=== PATIENT | male | born 1970 | race Caucasian/White ===

== ENCOUNTER 2020-07-17 07:32 | Outpatient (REF) | payer OTHER, SELFPAY ==
[2020-07-17 08:35] LABS: Alanine Aminotransferase 37 U/L (0-40); Albumin Level 4.1 g/dL (3.5-5.0); Alkaline Phosphatase 73 U/L (39-117); Anion Gap 10 (12-20); Aspartate Amino Transferase 19 U/L (5-37); Bilirubin Total 0.5 mg/dL (0.0-1.0); Blood Urea Nitrogen 13 mg/dL (9-16); Calcium 8.7 mg/dL (8.4-10.2); Carbon Dioxide 23 mmol/L (22-29); Chloride 106 mmol/L (96-108); Cholesterol 116 mg/dL; Estimated Glomerular Filt Rate > 60; Glucose Fasting 114 mg/dL (60-99); HDL Cholesterol 33 mg/dL; LDL Cholesterol Calculated 60 mg/dl; Potassium 4.1 mmol/l (3.3-5.1); Sodium 135 mmol/L (135-145); Total Protein 6.6 g/dL (6.5-8.0); Triglycerides 117 mg/dL
== END 2020-07-17 07:33 | disposition home or self-care (01) ==
LOC: HO.LAB 07:32
PROVIDERS: Visit Provider Internal Medicine
DX: E78.00 Pure hypercholesterolemia, unspecified (principal); R73.02 Impaired glucose tolerance (oral)
CPT/HCPCS: 80053; 80061

== ENCOUNTER 2022-03-27 06:08 | Outpatient (REF) | payer OTHER, SELFPAY ==
[2022-03-27 07:54] LABS: Anion Gap 15 (12-20); Blood Urea Nitrogen 11 mg/dL (9-16); Carbon Dioxide 20 mmol/L (22-29); Chloride 108 mmol/L (96-108); Estimated Glomerular Filt Rate > 60; Potassium 3.9 mmol/L (3.3-5.1); Sodium 139 mmol/L (135-145)
[2022-03-27 07:55] LABS: Alanine Aminotransferase 37 U/L (0-40); Albumin Level 4.2 g/dL (3.5-5.0); Alkaline Phosphatase 69 U/L (39-117); Aspartate Amino Transferase 19 U/L (5-37); Bilirubin Total 0.7 mg/dL (0.0-1.0); Calcium 8.8 mg/dL (8.4-10.2); Cholesterol 185 mg/dL; Glucose Fasting 116 mg/dL (60-99); HDL Cholesterol 34 mg/dL; LDL Cholesterol Calculated 118 mg/dl; Total Protein 6.8 g/dL (6.5-8.0); Triglycerides 168 mg/dL
[2022-04-01 13:22] LABS: Vitamin D 25-OH, D2 <4 ng/mL; Vitamin D 25-OH, D3 26 ng/mL; Vitamin D 25-OH, Total 26 ng/mL (30-100)
== END 2022-03-27 06:09 | disposition home or self-care (01) ==
LOC: HO.LAB 06:08
PROVIDERS: PCP Internal Medicine; Visit Provider Internal Medicine
DX: E78.00 Pure hypercholesterolemia, unspecified (principal); E78.5 Hyperlipidemia, unspecified; E55.9 Vitamin D deficiency, unspecified; I10 Essential (primary) hypertension
CPT/HCPCS: 36415; 80053; 80061; 82306

== ENCOUNTER 2022-08-15 06:09 | Outpatient (REF) | payer OTHER, SELFPAY ==
[2022-08-15 07:57] LABS: Alanine Aminotransferase 40 U/L (0-40); Albumin Level 4.2 g/dL (3.5-5.0); Alkaline Phosphatase 66 U/L (39-117); Anion Gap 11 (12-20); Aspartate Amino Transferase 22 U/L (5-37); Blood Urea Nitrogen 13 mg/dL (9-16); Calcium 9.3 mg/dL (8.4-10.2); Carbon Dioxide 25 mmol/L (22-29); Chloride 108 mmol/L (96-108); Cholesterol 222 mg/dL; Estimated Glomerular Filt Rate > 60; Glucose Fasting 129 mg/dL (60-99); HDL Cholesterol 40 mg/dL; LDL Cholesterol Calculated 146 mg/dl; Potassium 4.3 mmol/L (3.3-5.1); Sodium 140 mmol/L (135-145); Total Protein 7.1 g/dL (6.5-8.0); Triglycerides 182 mg/dL
[2022-08-15 08:14] LABS: Vitamin D 25-OH Total 20.3 ng/mL (>30)
[2022-08-15 11:21] LABS: Bilirubin Total 0.4 mg/dL (0.0-1.0)
== END 2022-08-15 06:10 | disposition home or self-care (01) ==
LOC: HO.LAB 06:09
PROVIDERS: PCP Internal Medicine; Visit Provider Internal Medicine
DX: I10 Essential (primary) hypertension (principal); E78.5 Hyperlipidemia, unspecified; E55.9 Vitamin D deficiency, unspecified
CPT/HCPCS: 36415; 80053; 80061; 82306

== ENCOUNTER 2022-12-11 08:32 | Outpatient (REF) | payer OTHER, SELFPAY ==
[2022-12-11 09:25] LABS: Alanine Aminotransferase 38 U/L (0-40); Albumin Level 4.4 g/dL (3.5-5.0); Alkaline Phosphatase 72 U/L (39-117); Anion Gap 11 (12-20); Aspartate Amino Transferase 23 U/L (5-37); Bilirubin Total 0.9 mg/dL (0.0-1.0); Blood Urea Nitrogen 14 mg/dL (9-16); Calcium 9.1 mg/dL (8.4-10.2); Carbon Dioxide 25 mmol/L (22-29); Chloride 107 mmol/L (96-108); Cholesterol 124 mg/dL; Estimated Glomerular Filt Rate > 60; Glucose Fasting 112 mg/dL (60-99); HDL Cholesterol 35 mg/dL; LDL Cholesterol Calculated 67 mg/dl; Potassium 4.2 mmol/L (3.3-5.1); Sodium 139 mmol/L (135-145); Total Protein 6.7 g/dL (6.5-8.0); Triglycerides 111 mg/dL
== END 2022-12-11 08:33 | disposition home or self-care (01) ==
LOC: HO.LAB 08:32
PROVIDERS: PCP Internal Medicine; Visit Provider Internal Medicine
DX: E78.5 Hyperlipidemia, unspecified (principal); E78.00 Pure hypercholesterolemia, unspecified
CPT/HCPCS: 36415; 80053; 80061

== ENCOUNTER 2022-12-18 15:19 | Outpatient (REF) | payer OTHER, SELFPAY ==
--- NOTE | ~2022-12-18 | XR_ITS ---
EXAMINATION: XR CERVICAL SPINE CLINICAL INFORMATION: Neck pain COMPARISON: None available. TECHNIQUE: 4 views of the cervical spine were obtained. FINDINGS: Bone alignment is normal. No fracture or dislocation. There is degenerative spondylosis and disc space narrowing at C4-C5 and C5-C6. Prevertebral soft tissues are normal. XR/XR cervical spine 2V IMPRESSION: Degenerative changes at C4-C5 and C5-C6.
== END 2022-12-18 15:20 | disposition home or self-care (01) ==
LOC: HO.XRAY 15:19
PROVIDERS: PCP Internal Medicine; Visit Provider Internal Medicine
DX: M54.2 Cervicalgia (principal)
CPT/HCPCS: 72040

== ENCOUNTER 2023-02-02 14:25 | Outpatient (REF) | payer OTHER, SELFPAY ==
--- NOTE | ~2023-02-02 | CT_ITS ---
EXAMINATION: CT CHEST SCREENING CLINICAL INFORMATION: Current smoker. 40 pack year history. COMPARISON: Previous chest x-ray most recent August 2015 TECHNIQUE: Multidetector volumetric CT imaging of the chest is performed without contrast using low dose technique. Additional 2D coronal and sagittal reformatted images and axial 3D maximum intensity projection (MIP) images are generated on the CT workstation. This CT examination was performed using dose optimization techniques as appropriate, variously including the following: *Automated exposure control *Adjustment of mA and/or kV according to patient size (this includes techniques or standardized protocols for targeted exams where dose is matched to indication/reason for exam; i.e. extremities or head) *Use of iterative reconstruction technique DLP: 77 mGy-cm FINDINGS: LUNGS: The lungs are clear with no evidence of inflammation or nodules. Minimal subsegmental atelectasis at the lung bases. MEDIASTINUM: The mediastinum is normal. CORONARY ARTERY CALCIFICATION: Mild PLEURA: There is no pleural effusion. No pleural mass or thickening. AXILLA: No lymphadenopathy. UPPER ABDOMEN: Unremarkable OSSEOUS STRUCTURES: Mild scoliosis and degenerative changes of the spine. CT/CT lung screening IMPRESSION: Mild subsegmental atelectasis at the lung bases. ASSESSMENT: Lung-RADS category 1: Negative RECOMMENDATION: Annual low-dose chest CT follow-up recommended
== END 2023-02-02 14:26 | disposition home or self-care (01) ==
LOC: HO.CT 14:25
PROVIDERS: PCP Internal Medicine; Visit Provider Physician Assistant Medical
DX: Z12.2 Encounter for screening for malignant neoplasm of respiratory organs (principal); F17.210 Nicotine dependence, cigarettes, uncomplicated
CPT/HCPCS: 71271; G0296

== ENCOUNTER 2023-02-20 16:00 | Outpatient (RCR) | payer OTHER, SELFPAY ==
--- NOTE | 2023-01-10 13:02 | MHC.PT.EP ---
[facility] [place] Office [place] Office [place] Office [address] [phone] F: [phone] F: [phone] F: [phone] F: [phone] Physical Therapy Plan of Care Date of Evaluation: Date of Surgery: N/A Diagnosis: Cervicalgia Assessment: Pt is a pleasant 52yo M who presents to PT with L sided neck pain that occasionally radiates into L upper arm. He presents to PT with current impairments in pain, decreased cervical ROM, soft tissue restrictions and impaired posture. He is limited functionally by head rotation, looking up and down, overhead ADLs, and sleeping. He is a good candidate for skilled PT in order to address current impairments to facilitate return to PLOF. He is recommended to be seen 2x/week for 4 weeks and will be reassessed at that time. Frequency and Duration: The patient will be seen 2x/week for 4 weeks Short Term Goals: Pt will be I with HEP to promote self management of symptoms Pt will improve L cervical rotation by at least 10 degrees Jail Goals: Pt will demonstrate full ROM all planes of cervical spine to assist with driving Pt will perform overhead ADLs with minimal to no pain or compensation Treatment Plan: Modalities to reduce pain, spasms and effusion. Manual therapy to restore motion and function. Therapeutic exercise to improve strength and flexibility. Neuromuscular re-education for posture and balance. Therapeutic activities to return to functional activities of daily living. Electronically signed by: Steffi Andrade, PT, DPT Please sign and return to therapist. Thank you for your referral.
--- NOTE | 2023-04-13 11:05 | MHC.PT.DC ---
[facility] [place] Office [place] Office [place] Office [address] R[address] [phone] F: [phone] F: [phone] F: [phone] F: [phone] Physical Therapy Discharge Report Diagnosis: Cervicalgia Date of Surgery: N/A Date of Evaluation: 01/09/23 Date of Discharge: 04/13/23 Treatments to Date: 5 Cancellations to Date: 3 No Shows to Date: Discharge Status: Visit Non-compliance Discharge Summary: Pt was seen for skilled PT from 01/09/23-02/20/23. His last attended appointment was 02/20/23 and he cancelled his last scheduled appointment. He is being D/C from skilled PT as he has not attended or called to reschedule in > 30 days. Pt current level of function unknown at this time. Electronically signed by: Steffi Andrade, PT, DPT Please sign and return to therapist. Thank you for your referral.
== END 2023-04-13 11:05 | disposition home or self-care (01) ==
LOC: HO.PT 16:00
PROVIDERS: PCP Internal Medicine; Visit Provider Internal Medicine
DX: M54.2 Cervicalgia (principal)
CPT/HCPCS: 97012; 97110; 97140; 97162

== ENCOUNTER → 2023-05-18 10:40 | Outpatient (BNVA) | payer OTHER, SELFPAY | PROVIDERS: PCP Internal Medicine; Visit Provider Internal Medicine | DX: S16.1XXA Strain of muscle, fascia and tendon at neck level, initial encounter (principal); S39.012A Strain of muscle, fascia and tendon of lower back, initial encounter; V89.0XXA Person injured in unspecified motor-vehicle accident, nontraffic, initial encounter | CPT/HCPCS: 99203 ==

== ENCOUNTER → 2023-05-21 10:45 | Outpatient (BNVA) | payer OTHER, SELFPAY | PROVIDERS: PCP Internal Medicine; Visit Provider Internal Medicine | DX: S39.012A Strain of muscle, fascia and tendon of lower back, initial encounter (principal); S16.1XXA Strain of muscle, fascia and tendon at neck level, initial encounter; V89.0XXA Person injured in unspecified motor-vehicle accident, nontraffic, initial encounter | CPT/HCPCS: 99213 ==

== ENCOUNTER 2023-07-03 16:59 | Emergency (ER) | payer OTHER, SELFPAY ==
[2023-07-03 17:23] VITALS: BP 199/95; PULSE 66; RESP 18; TEMP 36.6; O2SAT 99; BMI 38.0
--- NOTE | 2023-07-03 17:25 | ED_ITS ---
HPI - General Adult General Chief complaint: General Medical Stated complaint: High blood pressure Time Seen by Provider: 07/03/23 21:31 Source: patient Mode of arrival: ambulatory Limitations: no limitations History of Present Illness HPI narrative: 53 yo male with HTN, HLD, arthritis, NSTEMI here with c/o elevated HTN around 3pm today he felt off - no real chest pain, headaches, numbness, weakness, shortness of breath. He checked his BP at [employer] and it was 221/115. He then took his lisinopril and metoprolol which he almost never takes. Has not filled it since November. He has no symptoms now and is eager to go home. He did refill all his medications while waiting in our waiting room and will call his PCP before his 08/29/23 appointment. MD complaint: HTN Onset (ago): day(s) (1) Radiation: non-radiation Severity: mild Relieving factors: none Exacerbating factors: none Associated symptoms: denies other symptoms Treatments prior to arrival: other (took his BP medications) Related Data Previous Rx's Medication Instructions Recorded nicotine (polacrilex) 2 mg buccal 2 mg buccal Q8H PRN nicotine 04/22/22 lozenge (Nicorette) cravings 30 days #72 ea meloxicam 15 mg tablet 15 mg PO DAILY 90 days #90 tabs 06/28/22 metoprolol succinate 25 mg 25 mg PO DAILY 90 days #90 tabs 09/29/22 tablet,extended release 24 hr atorvastatin 80 mg tablet 80 mg PO DAILY 90 days #90 tabs 03/23/23 lisinopril 30 mg tablet 30 mg PO DAILY 90 days #90 tabs 03/23/23 Allergies Allergy/AdvReac Type Severity Reaction Status Date / Time No Known Allergies Allergy Verified 12/14/22 16:01 [No Known Allergies*] Review of Systems 2 Review of Systems: Constitutional : No Fever, No Chills, No Fatigue ENT/Mouth : No sore throat, No Rhinorrhea Eyes: No Eye Pain, No Swelling, No Redness Cardiovascular : No Chest Pain, No SOB, No Dyspnea on Exertion Respiratory : No Cough, No Sputum Gastrointestinal : No Nausea, No Vomiting, No Diarrhea, No abdominal Pain Genitourinary : No Dysuria, No Urinary Frequency, No Hematuria, Musculoskeletal : No joint pain, No Myalgias, No Joint Swelling Skin : No Skin Lesions, No rash Neuro : No Weakness, No Numbness, No Dizziness, no Headache Psych : No Anxiety/Panic, No Depression Heme/Lymph: No Bruising, No Bleeding,No Lymphadenopathy Endocrine : No Polyuria, No Polydipsia All other systems reviewed and are negative [facility] Past Medical History Attestation statement: The following information was validated with the patient. Source: old records reviewed Medical History Nicotine dependence, cigarettes, uncomplicated History of non-ST elevation myocardial infarction (NSTEMI) Tubular adenoma of colon (~2019) Obese Left hip pain Pure hypercholesterolemia Essential hypertension Knee osteoarthritis Surgical History History of colonoscopy History of cardiac catheterization Family History Family History Father Skin cancer Lung cancer Mother Chronic mental illness Lung cancer Brother Cerebral palsy Maternal Aunt Lung cancer Maternal Grandfather Lung cancer Family/Other Chronic mental illness Other Substance use disorder Social History Social History Housing: Apartment Alcohol intake: never Patient Tobacco Use Status: Current everyday Tobacco user Tobacco use type: Cigarette Cigarettes Per Day: 15 Years Smoked: (onset 14yo, 1/2-3/4ppd x 40years - 25pyh) e-Cigarette/Vaping Use: Never Used Second Hand Smoke Exposure: No Use of substances other than those prescribed or required for medical reasons: No Advance Directives: No Advance Directives Information Provided: No service: No Current occupational status: employed Current occupational exposures/hazards: No Cognitive needs: No Hearing needs: No Vision needs: No Physical Exam ED Vital Signs: Vital Signs - 24 hr 07/03/23 17:23 07/03/23 21:45 Temperature 97.9 F Pulse Rate 66 66 Respiratory Rate 18 20 Blood Pressure 199/95 H 180/101 H Pulse Oximetry 99 97 Oxygen Delivery Method Room Air Room Air BMI result Body Mass Index 38.0 Appearance: Alert. Oriented X3. No acute distress. Eyes: Pupils equal, round and reactive to light. ENT: Pharynx normal. Neck: Normal inspection. Neck supple. CVS: Normal heart rate and rhythm. Pulses normal. Respiratory: No respiratory distress. Breath sounds normal. Abdomen: Soft and nontender. Skin: Skin warm and dry. Normal skin color. Normal skin turgor. Extremities: No lower extremity edema. No calf ttp Neuro: Oriented X 3. No motor deficit. No sensory deficit. Course Course Course Narrative: This is an RME: Additional HPI, ROS, PE not included below will be deferred to primary provider. Patient is a 53-year-old male who presents emergency department for evaluation of feeling funny while at the grocery store today , [place] something in my chest , checked BP at the automated machine; 221/113 which prompted him to come in. Took his BP meds 1600 : Lisinopril 40mg and Metoprolol. Reports for the past month he has not been compliant with his antihypertensives reporting that he has ?forgot?. Currently he reports feeling tired, denies any additional symptoms. 199/95 Plan: Labs, EKG Medical Decision Making Medical Decision Making MDM Narrative: 53 yo male with HTN, HLD, arthritis, NSTEMI here with asymptomatic HTN in setting of non compliance no signs of end organ damage on labs or clinically - he took his BP medication prior to arrival and has follow up and refills. we discussed the need for him to take medications and reasons to return he is already down 40 points SBP which is good. Stable for DC Differential Diagnosis Differential Diagnoses: The differential diagnosis associated with the presentation includes non-compliance, uncontrolled HTN Admission/Observation Consideration of admission/observation: Escalation of care including admission/observation considered asymptomatic HTN can be managed as outpatient Lab Data [facility] Lab Attestation statement: I reviewed the patient's lab results. 07/03/23 17:59 07/03/23 17:59 Labs: Lab Results 07/03/23 07/03/23 Range/Units 17:59 18:19 WBC 9.3 (4.8-10.8) X10*3/uL RBC 4.62 (4.60-5.80) X10*6/uL Hgb 14.5 (14.0-18.0) g/dl Hct 40.7 L (42.0-52.0) % MCV 88.1 (80.0-98.0) fL MCH 31.4 (27.0-33.0) pg MCHC 35.6 (31.0-36.0) g/dl RDW 12.3 (11.0-16.0) % Plt Count 240 (160-400) X10*3/uL MPV 10.3 (9.4-12.4) fL Immature Gran % (Auto) 0.2 (0.0-0.4) % Neut % (Auto) 43.6 L (45-73) % Lymph % (Auto) 43.7 H (20-40) % [place] % (Auto) 7.8 (2-11) % Eos % (Auto) 3.8 (0-4) % Baso % (Auto) 0.9 (0-2) % Lymph # (Auto) 4.1 (1.2-4.9) X10*3/uL [place] # (Auto) 0.7 (0.1-1.2) X10*3/uL Eos # (Auto) 0.4 (0.0-0.4) X10*3/uL Baso # (Auto) 0.1 (0.0-0.2) X10*3/uL Abs Immat Gran (auto) 0.02 (0.00-0.03) X10*3/uL Absolute Neuts (auto) 4.1 (2.0-8.3) x10*3/uL Absolute Nucleated RBC 0.000 (0.0-0.012) X10*3/uL Nucleated RBC % (auto) 0.0 (0.0-0.2) /100WBC PT 10.8 L (11.1-13.3) SEC INR 0.9 (0.9-1.1) Sodium 140 (135-145) mmol/L Potassium 3.6 (3.3-5.1) mmol/L Chloride 109 H (96-108) mmol/L Carbon Dioxide 22 (22-29) mmol/L Anion Gap 13 (12-20) BUN 15 (9-16) mg/dL Creatinine 0.79 (0.5-1.4) mg/dL Estim Creat Clear Calc 134.7 Estimated GFR > 60 Random Glucose 129 H (60-115) mg/dL Calcium 9.3 (8.4-10.2) mg/dL Total Bilirubin 0.4 (0.0-1.0) mg/dL AST 21 (5-37) U/L ALT 37 (0-40) U/L Alkaline Phosphatase 63 (39-117) U/L Troponin I High Sens 2.8 (<3.5-35.0) ng/L Total Protein 6.9 (6.5-8.0) g/dL Albumin 4.1 (3.5-5.0) g/dL Independent Interpretation I performed an independent interpretation of an: EKG Interpretation: Rate: 66 Rhythm: NSR [place]: normal Normal P waves. Normal NORMA. Normal QRS complex. ST T wave : no DAVIS, q wave lead III, nonspecific ST T wave aVL qTC: normal prior studies: q wave new since 2016 The study has been interpreted contemporaneously by me. . Independent Historian Clinical information obtained from an independent historian. History obtained from or confirmed by: Spouse External Record Review External record reviewed: Office record Chronic Conditions Patient?s care impacted by: Hypertension Discharge Plan Discharge Clinical Impression: Hypertension, uncontrolled Patient Disposition: Home, Self-Care Instructions: Chronic Hypertension (ED), DASH Eating Plan (ED) Additional Instructions: take your blood pressure medications daily. return for chest pain, numbness, weakness, severe headaches, vision changes or any other concerns. follow up with your doctor as planned Prescriptions: No Action nicotine (polacrilex) [Nicorette] 2 mg lozenge 2 mg buccal Q8H PRN (Reason: nicotine cravings) 30 Days Qty: 72 1RF meloxicam 15 mg tablet 15 mg PO DAILY 90 Days Qty: 90 3RF metoprolol succinate 25 mg tablet extended release 24 hr 25 mg PO DAILY 90 Days Qty: 90 3RF atorvastatin 80 mg tablet 80 mg PO DAILY 90 Days Qty: 90 1RF lisinopril 30 mg tablet 30 mg PO DAILY 90 Days Qty: 90 1RF
--- NOTE | 2023-07-03 17:29 | ECG_ITS ---
Test Reason : HYPERTENSION Blood Pressure : / mmHG Vent. Rate : 066 BPM Atrial Rate : 066 BPM P-R Int : 170 ms QRS Dur : 102 ms QT Int : 410 ms P-R-T Axes : 032 045 048 degrees QTc Int : 429 ms Normal sinus rhythm Normal ECG When compared with ECG of 01-SEP-2015 14:13, No significant changes seen Referred By: Ann Richard Electronically Signed By:RUSS HUBER MD
[2023-07-03 18:02] LABS: MANUAL DIFF FLAG NO
[2023-07-03 18:20] LABS: Alanine Aminotransferase 37 U/L (0-40); Albumin Level 4.1 g/dL (3.5-5.0); Alkaline Phosphatase 63 U/L (39-117); Anion Gap 13 (12-20); Aspartate Amino Transferase 21 U/L (5-37); Bilirubin Total 0.4 mg/dL (0.0-1.0); Blood Urea Nitrogen 15 mg/dL (9-16); Calcium 9.3 mg/dL (8.4-10.2); Carbon Dioxide 22 mmol/L (22-29); Chloride 109 mmol/L (96-108); Creatinine Clr Calc Pharmacy 134.7; Estimated Glomerular Filt Rate > 60; Glucose Random 129 mg/dL (60-115); Potassium 3.6 mmol/L (3.3-5.1); Sodium 140 mmol/L (135-145); Total Protein 6.9 g/dL (6.5-8.0)
[2023-07-03 18:27] LABS: Troponin-I High Sensitivity 2.8 ng/L (<3.5-35.0)
[2023-07-03 18:38] LABS: Basophils Absolute Auto 0.1 X10*3/uL (0.0-0.2); Basophils Percent Auto 0.9 % (0-2); Eosinophils Absolute Auto 0.4 X10*3/uL (0.0-0.4); Eosinophils Percent Auto 3.8 % (0-4); Hematocrit 40.7 % (42.0-52.0); Hemoglobin 14.5 g/dl (14.0-18.0); Imm Gran Abs Auto 0.02 X10*3/uL (0.00-0.03); Imm Gran Pct Auto 0.2 % (0.0-0.4); Lymphocytes Absolute Auto 4.1 X10*3/uL (1.2-4.9); Lymphocytes Percent Auto 43.7 % (20-40); Mean Corpuscular HGB Conc 35.6 g/dl (31.0-36.0); Mean Corpuscular Hemoglobin 31.4 pg (27.0-33.0); Mean Corpuscular Volume 88.1 fL (80.0-98.0); Mean Platelet Volume 10.3 fL (9.4-12.4); Monocytes Absolute Auto 0.7 X10*3/uL (0.1-1.2); Monocytes Percent Auto 7.8 % (2-11); Neutrophils Absolute Auto 4.1 x10*3/uL (2.0-8.3); Neutrophils Percent Auto 43.6 % (45-73); Platelet Count 240 X10*3/uL (160-400); Red Blood Count 4.62 X10*6/uL (4.60-5.80); Red Cell Distribution Width 12.3 % (11.0-16.0); White Blood Count 9.3 X10*3/uL (4.8-10.8)
[2023-07-03 18:47] LABS: INTERNATIONAL NORM RATIO 0.9 (0.9-1.1); Prothrombin Time 10.8 SEC (11.1-13.3)
[2023-07-03 21:45] VITALS: BP 180/101; PULSE 66; RESP 20; O2SAT 97
== END 2023-07-03 22:02 | disposition home or self-care (01) ==
PROVIDERS: Nurse Practitioner Family; Emergency Provider Emergency Medicine; PCP Internal Medicine
DX: I10 Essential (primary) hypertension (principal); R07.89 Other chest pain; E78.00 Pure hypercholesterolemia, unspecified; F17.210 Nicotine dependence, cigarettes, uncomplicated; Z91.148 Patient's other noncompliance with medication regimen for other reason
CPT/HCPCS: 36415; 80053; 84484; 85025; 85610; 93005; 99283; 99284

== ENCOUNTER 2024-02-19 06:15 | Outpatient (REF) | payer OTHER, SELFPAY ==
[2024-02-19 08:16] LABS: Alanine Aminotransferase 30 U/L (0-40); Alkaline Phosphatase 64 U/L (39-117); Anion Gap 12 (12-20); Aspartate Amino Transferase 19 U/L (5-37); Bilirubin Total 0.7 mg/dL (0.0-1.0); Blood Urea Nitrogen 14 mg/dL (9-16); Calcium 9.2 mg/dL (8.4-10.2); Carbon Dioxide 25 mmol/L (22-29); Chloride 110 mmol/L (96-108); Cholesterol 145 mg/dL (<200); Estimated Glomerular Filt Rate > 60; Glucose Fasting 156 mg/dL (60-99); HDL Cholesterol 34 mg/dL (>40); LDL Cholesterol Calculated 81 mg/dL (<100); Sodium 143 mmol/L (135-145); Total Protein 6.9 g/dL (6.5-8.0); Triglycerides 153 mg/dL (<150)
[2024-02-19 08:33] LABS: Vitamin D 25-OH Total 23.1 ng/mL (>30)
== END 2024-02-19 06:16 | disposition home or self-care (01) ==
LOC: HO.LAB 06:15
PROVIDERS: PCP Internal Medicine; Visit Provider Internal Medicine
DX: I10 Essential (primary) hypertension (principal); E78.5 Hyperlipidemia, unspecified; E55.9 Vitamin D deficiency, unspecified
CPT/HCPCS: 36415; 80053; 80061; 82306

== ENCOUNTER 2024-02-20 10:57 | Outpatient (AMB) | payer OTHER, SELFPAY ==
[2024-02-20 11:01] VITALS: BP 142/80; BMI 38.1
--- NOTE | 2024-02-20 11:01 | A.OFFPC_ITS ---
Vital Signs 02/20/24 11:01 Height 5 ft 9 in Weight 258 lb BMI 38.1 BP 142/80 H Blood Pressure Location Lt brachial Position Sitting Intake Visit Reasons: annual exam Intake Note: Patient here for a physical exam Car Examiner Required: No Accompanied by: Self / Same As Patient Allergies No Known Allergies [No Known Allergies*] Allergy (Verified 02/20/24 11:12) Medication List - Last Reconciled 02/20/24 by Erika Wren MD atorvastatin 80 mg PO DAILY 90 days lisinopril 30 mg PO DAILY 90 days meloxicam 15 mg PO DAILY 90 days metoprolol succinate ER 25 mg PO DAILY 90 days Tobacco use date assessed: 02/20/24 Dental Screening Dental Screen Date: 02/20/24 Did you have a dental visit in the last 12 months?: Yes Did you have a dental problem in the last 6 months where you did not have access to dental care?: No Was dental information given to patient?: Patient has dentist HPI HPI Comments History of Present Illness Details This is a 54-year-old male that comes for his physical exam. He is fasting blood glucose was over 126 and has A1c of over 6.5% today given the diagnosis of diabetes. I will refer him for Ophthalmology for diabetic eye exam. I will start him on metformin which I advised can cause abdominal discomfort and diarrhea. He will test once a day fasting. Aware to use appropriate diabetic foot wear. Will be referred to nutrition is also. His BMI is 38.1 and was advised to do diet and exercise. Was advised to do elliptical exercise or moderate intensity exercise burning around 300 calories a day or at least exercise for 30 minutes 5 days a week. Was advised to count forks as 6 forks of protein and 8 forks of vegetables. Last colonoscopy was 2019 showing tubular adenoma and next colonoscopy should be 2024. He has a smoker and was advised to quit and has his CT scan lung screening for the 2nd year today. [facility] Medical History (Updated 02/20/24 @ 12:07 by Erika Wren MD) History of non-ST elevation myocardial infarction (NSTEMI) Essential hypertension Pure hypercholesterolemia Nicotine dependence, cigarettes, uncomplicated Tubular adenoma of colon (~2019) Obese Left hip pain Knee osteoarthritis Surgical History History of tooth extraction History of colonoscopy History of cardiac catheterization Family History Father Skin cancer Lung cancer Mother Chronic mental illness Lung cancer Brother Cerebral palsy Maternal Aunt Lung cancer Maternal Grandfather Lung cancer Family/Other Chronic mental illness Other Substance use disorder Social History Housing: Apartment Alcohol intake: never Patient Tobacco Use Status: Current everyday Tobacco user Tobacco use type: Cigarette Cigarettes Per Day: 10 Years Smoked: (onset 14yo, 1/2-3/4ppd x 40years - 25pyh) e-Cigarette/Vaping Use: Never Used Second Hand Smoke Exposure: No service: No Current occupational status: employed Current occupational exposures/hazards: No Cognitive needs: No Hearing needs: No Vision needs: No Questionnaire PHQ-9 Over the last 2 weeks, how often have you been bothered by any of the following problems? 1. Little interest or pleasure in doing things: not at all 2. Feeling down, depressed, or hopeless: not at all 3. Trouble falling or staying asleep, or sleeping too much: not at all 4. Feeling tired or having little energy: not at all 5. Poor appetite or overeating: not at all 6. Feeling bad about yourself - or that you are a failure or have let yourself or your family down: not at all 7. Trouble concentrating on things, such as reading the newspaper or watching television: not at all 8. Moving or speaking so slowly that other people could have noticed. Or the opposite - being so fidgety or restless that you have been moving around a lot more than usual: not at all 9. Thoughts that you would be better off or of hurting yourself in some way: not at all Total score: 0 Depression Screening Interpretation: Negative Depression Screening Done: Yes 24793 - PHQ-9 Billing: Yes Source: Developed by Drs. Tae Clark, Hayley Joe, Emerson Robledo and colleagues, with an educational bruce from [employer]. Thrive Questionnaire Date Thrive assessed: 02/20/24 I am a: Patient What is your living situation today?: I have a steady place to live Within the past 12 months, did the food you bought not last and you didn't have the money to get more?: Never true Within the past 12 months, did you worry whether your food would run out before you got money to buy more?: Never true Do you have trouble paying for medicines?: No Do you have trouble getting transportation to medical appointments?: No Do you have trouble paying your heating and electricity bill?: No Do you have trouble taking care of your child, family member or friend?: No Do you have trouble with day-to-day activities such as bathing, preparing meals, shopping, managing finances, etc.?: No Are you currently unemployed and looking for a job?: No Are you interested in more education?: No Please select the resources that you would like help with: None Currently or been in a relationship where the following occur: no concerns reported THRIVE Score: 0 AUDIT C Alcohol Use Questionnaire (AUDIT-C) 1. How often do you have a drink containing alcohol?: Never Total Score: 0 Score Reviewed/Action Taken: No JAYDEN-7 AMB Questionnaire JAYDEN-7 Date JAYDEN - 7 assessed: 02/20/24 Feeling nervous, anxious, or on edge: 0 = Not at all Not being able to stop or control worryin = Not at all Worrying too much about different things: 0 = Not at all Trouble relaxin = Not at all Being so restless that it is hard to sit still: 0 = Not at all Becoming easily annoyed or irritable: 0 = Not at all Feeling afraid as if something awful might happen: 0 = Not at all Total JAYDEN-7 score (0-4 normal; 5-9 mild; 10-14 moderate; 15-21 severe): 0 Source: Developed by Drs. Tae Clark, Hayley Joe, Emerson Robledo and colleagues, with an educational bruce from [employer]. JAYDEN-7 Assessment Billing JAYDEN-7 Assessment Tool: JAYDEN-7 Assessment 91259 Review of Systems Const All systems reviewed & are unremarkable except as noted in HPI and below Card Denies chest pain at rest, Denies chest pain with activity, Denies edema, Denies irregular heart rhythm, Denies claudication, Denies dyspnea, Denies dyspnea on exertion, Denies orthopnea, Denies paroxysmal nocturnal dyspnea and Denies slow heart rate Resp Denies cough, Denies dyspnea and Denies dyspnea on exertion GI Denies abdominal pain, Denies change in bowel habits, Denies excessive flatus, Denies nausea and Denies vomiting Denies urinary hesitancy, Denies urinary incontinence and Denies urinary urgency Musc Denies atrophy, Denies deformity and Denies limited range of motion Physical exam (Primary Care) Vital Signs: Last Vital Signs BP 142/80 H 02/20/24 11:01 BMI result Body Mass Index 38.1 BMI Assessment/Plan discussion: High BMI High, discussed plan: lifestyle, weight reduction, dietary and physical activity Tobacco/Smoking Status: Tobacco use Status Tobacco use date assessed 02/20/24 02/20/24 11:07 Patient Tobacco Use Status Current everyday Tobacco 02/20/24 11:07 Tobacco use type Cigarette 02/20/24 11:07 e-Cigarette/Vaping Use Never Used 02/20/24 11:07 Are you ready to quit: No Tobacco cessation counseling provided: Yes Items discussed: [employer]uitWorks Relapse Prevention: discussed the importance of a supportive environment, discussed negative mood or depression after quitting, weight gain after smoking is common and discussed dietary, exercise and/or lifestyle changes Number of minutes spent counselin CPT code: 26667 - 4-10 Minutes PHQ-9: PHQ-9 Score PHQ-9: Total score 0 02/20/24 11:15 Depression Screening Interpretation: Negative Thrive Assessment: Date of Thrive Assessment Date Thrive assessed 02/20/24 02/20/24 11:09 Currently or been in a relationship where the following occur: no concerns reported [facility] Head: Yes normal to inspection, Yes normocephalic and Yes atraumatic Ears: external ears normal Eyes General: appearance normal, both eyes and all related structures Eyelids: Yes eyelids normal Conjunctivae: conjunctivae normal Neck Neck: Yes normal visual inspection and Yes supple Resp Effort & Inspection: normal respiratory effort Auscultation: clear to auscultation bilaterally Cardio Jugular venous distension: no JVD Rate: regular rate Rhythm: regular rhythm Heart sounds: S1 normal heart sound present and S2 normal heart sound present GI Inspection: Yes normal to inspection Palpation (GI): Soft to palpation and nontender Auscultation: normal bowel sounds Skin General skin exam: no rashes or lesions noted Neuro General: no focal motor deficits Extrem General: Yes full ROM Psych Appearance: grossly normal Results AMB Hemoglobin A1c AMB Hemoglobin A1c 8.0 % Last Edit by ANTONIO Frances on 02/20/24 11:1 9 Assessment and Plan Assessment & Plan (1) Physical exam: Code(s): Z00.00 - Encounter for general adult medical examination without abnormal findings Plan: Repeat in a year. (2) Diabetes mellitus: Code(s): E11.9 - Type 2 diabetes mellitus without complications Qualifiers: Diabetes mellitus type: type 2 Diabetes mellitus [facility] insulin use: without [facility] use Diabetes mellitus complication status: with hyperglycemia Qualified Code(s): E11.65 - Type 2 diabetes mellitus with hyperglycemia Plan: Start metformin. Test blood glucose at least once a day. A1c goal is equal or less than 7%. Do diabetic yearly exam. Orders: Orders AMB Hemoglobin A1c Today R73.02 - Impaired glucose tolerance (oral) Referrals Ophthalmology Referral E11.9 - Type 2 diabetes mellitus without complications Medications: New cholecalciferol (vitamin D3) 25 mcg PO DAILY 90 days 90 caps 1RF lancets (FreeStyle Lancets) Use 1 lancet once a day 100 ea 4RF E11.9 - Type 2 diabetes mellitus without complications aspirin 81 mg PO DAILY 90 days 90 tabs 1RF metformin 500 mg PO BID 90 days 180 tabs 1RF E11.9 - Type 2 diabetes mellitus without complications blood-glucose meter (FreeStyle Lite Meter kit) As directed 1 ea 0RF E11.9 - Type 2 diabetes mellitus without complications blood sugar diagnostic (FreeStyle Lite Strips) Use 1 test strip once a day 50 ea 6RF E11.9 - Type 2 diabetes mellitus without complications Coding Level of Care Code Est Pt Level 3 (59250) Est Pt Prev Care 40-64y(58809) Diagnoses Physical exam Z00.00 Type 2 diabetes mellitus with hyperglycemia, without long-term current use of insulin E11.65 Diabetes mellitus type: type 2 Diabetes mellitus terminal gauger insulin use: without [facility] use Diabetes mellitus complication status: with hyperglycemia Additional Codes JAYDEN-7 Assessment Billing - JAYDEN-7 Assessment Tool: JAYDEN-7 Assessment 37445 ([id number]) Vital Signs *Quality* - CPT code: 32884 - 4-10 Minutes ([id number]) Time Spent (min) 40
== END 2024-02-20 11:42 | disposition home or self-care (01) ==
PROVIDERS: PCP Internal Medicine; Visit Provider Internal Medicine
DX: Z00.00 Encounter for general adult medical examination without abnormal findings (principal); E11.65 Type 2 diabetes mellitus with hyperglycemia
CPT/HCPCS: 83036; 99213; 99396

== ENCOUNTER 2024-02-20 16:24 | Outpatient (REF) | payer OTHER, SELFPAY ==
--- NOTE | ~2024-02-20 | CT_ITS ---
EXAMINATION: CT LOW-DOSE SCREENING CHEST WITHOUT CONTRAST CLINICAL INFORMATION: Nicotine dependence, cigarettes, uncomplicated. The patient is a current smoker with a 41 pack-year history of smoking. COMPARISON: CT chest 02/02/2023. X-ray chest 09/01/2015. TECHNIQUE: Multidetector volumetric CT imaging of the chest is performed on a Siemens SOMATOM Definition scanner without contrast using low dose technique. Additional 2D coronal and sagittal reformatted images and axial 3D maximum intensity projection (MIP) images are generated on the CT workstation. This CT examination was performed using dose optimization techniques as appropriate, variously including the following: *Automated exposure control *Adjustment of mA and/or kV according to patient size (this includes techniques or standardized protocols for targeted exams where dose is matched to indication/reason for exam; i.e. extremities or head) *Use of iterative reconstruction technique TOTAL EXAM DLP: 86 mGy-cm. CTDIvol: 2.70 mGy. FINDINGS: PULMONARY NODULES: No suspicious pulmonary nodules. LUNGS: Lungs bilaterally symmetrically expanded. Atelectasis is present in the lingula and right middle lobe. Minimal bronchial thickening. No effusion or pneumothorax. Central airways patent. MEDIASTINUM: No mediastinal, hilar or axillary adenopathy or free fluid collection. CORONARY ARTERY CALCIFICATION: None visualized on this study. THYROID GLAND: Unremarkable to the extent seen. CARDIOVASCULAR STRUCTURES: Aortic and heart size normal. No pericardial effusion. CHEST WALL/AXILLA: Unremarkable. UPPER ABDOMEN: Included portions of the solid organs in the upper abdomen unremarkable on noncontrast imaging aside from mild hepatic steatosis. OSSEOUS STRUCTURES: No suspicious focal findings. Minimal wedging of a midthoracic vertebral body. CT/CT lung screening IMPRESSION: 1. No evidence of pulmonary malignancy. 2. Incidental note made of mild hepatic steatosis. 3. Lung-RADS Category Negative. There are no clinically significant or potentially clinically significant findings not related to the lungs requiring urgent additional evaluation. ASSESSMENT: Lung-RADS Category 1: Negative. There are no nodules or there are definitely benign nodules. N/A RECOMMENDATION: Continued routine annual low-dose CT lung screening in 1 year is recommended. An order for CT CHEST LOW-OSE CANCER SCREENING ([id number]) can be placed.
== END 2024-02-20 16:25 | disposition home or self-care (01) ==
LOC: HO.CT 16:24
PROVIDERS: PCP Internal Medicine; Visit Provider Physician Assistant Medical
DX: Z12.2 Encounter for screening for malignant neoplasm of respiratory organs (principal); F17.210 Nicotine dependence, cigarettes, uncomplicated
CPT/HCPCS: 71271

== ENCOUNTER 2024-03-11 14:18 | Outpatient (AMB) | payer BC, SELFPAY ==
--- NOTE | 2024-03-11 14:45 | A.OFFVIS_ITS ---
VS Expanded 03/11/24 14:46 03/11/24 15:01 Height 5 ft 9 in 5 ft 9 in Weight 250 lb 3.594 oz 250 lb BMI 36.9 36.9 Intake Visit Reasons: T2DM W hyperglycemia/CONFIRMED Allergies No Known Allergies [No Known Allergies*] Allergy (Verified 02/20/24 11:12) Nutrition Presentation Details: Pt presents for MNT for T2DM, A1c 8.0% , Pt was referred by , PCP BS Monitoring Most Recent Diabetes Results: Cholesterol 145 mg/dL (<200) 02/19/24 HDL Cholesterol 34 mg/dL (>40) L 02/19/24 Triglycerides 153 mg/dL (<150) H 02/19/24 Creatinine 0.86 mg/dL (0.5-1.4) 02/19/24 Blood Urea Nitrogen 14 mg/dL (9-16) 02/19/24 Sodium 143 mmol/L (135-145) 02/19/24 Potassium 4.0 mmol/L (3.3-5.1) 02/19/24 Chloride 110 mmol/L (96-108) H 02/19/24 Carbon Dioxide 25 mmol/L (22-29) 02/19/24 Calcium 9.2 mg/dL (8.4-10.2) 02/19/24 AST 19 U/L (5-37) 02/19/24 ALT 30 U/L (0-40) 02/19/24 Total Protein 6.9 g/dL (6.5-8.0) 02/19/24 Albumin 4.0 g/dL (3.5-5.0) 02/19/24 TVK-Dpcrdrl-Ub.Jeor Equation Height: 5 ft 9 in Weight: 250 lb Resting Metabolic Rate: 1962.62 Calculated Activity Level: Sedentary Calories Needed to Maintain Weight: 2355.14 Diagnosis Nutrition problem #1: excessive energy intake As related to (etiology) #1: diagnosis As evidenced by (sign/symptom) #1: knowledge deficit of diet [facility] Medical History (Updated 02/20/24 @ 12:07 by Erika Wren MD) History of non-ST elevation myocardial infarction (NSTEMI) Essential hypertension Pure hypercholesterolemia Nicotine dependence, cigarettes, uncomplicated Tubular adenoma of colon (~2019) Obese Left hip pain Knee osteoarthritis Surgical History History of tooth extraction History of colonoscopy History of cardiac catheterization Family History (Updated 02/20/24 @ 11:16 by Erika Wren MD) Father Skin cancer Lung cancer Mother Chronic mental illness Lung cancer Brother Cerebral palsy Maternal Aunt Lung cancer Maternal Grandfather Lung cancer Family/Other Chronic mental illness Other Substance use disorder Social History Housing: Apartment Alcohol intake: never Patient Tobacco Use Status: Current everyday Tobacco user Tobacco use type: Cigarette Cigarettes Per Day: 10 Years Smoked: (onset 14yo, 1/2-3/4ppd x 40years - 25pyh) e-Cigarette/Vaping Use: Never Used Second Hand Smoke Exposure: No service: No Current occupational status: employed Current occupational exposures/hazards: No Cognitive needs: No Hearing needs: No Vision needs: No Assessment & Plan Assessment & Plan (1) Diabetes mellitus: Code(s): E11.9 - Type 2 diabetes mellitus without complications Category: Medical Qualifiers: Diabetes mellitus type: type 2 Diabetes mellitus senior care insulin use: without local intermodal truck driver use Diabetes mellitus complication status: with hyperglycemia Qualified Code(s): E11.65 - Type 2 diabetes mellitus with hyperglycemia Plan: Wt: 114 Kg (02/2024 ) Est kcal needs as per MSJ: 2500 (40% carb, 30% protein/fat) Est fluid needs as per 25-30 ml/d: 3400 Est prot per day as per 1 g/kg bw: 114 Recommend fiber intake : 8-10 g per day and gradually increase to 25-28 g per day for women and 35-38 g for men or as tolerated Recommend sodium intake per day : less than 2000 mg Educated patient on: ( R = reviewed V = verbalizes understanding N/R = needs review N/A = not applicable * Food sources of carbohydrate, adequate serving sizes and its role in various health conditions: R * Differences between complex carbohydrates a simple carbohydrates, role of fiber in diet: R V N/R * Lean protein sources of foods: R V NR * Differences between types of fats and role in diet (mono on saturated fat fatty acids, saturated fatty acids, trans fats): R V N/R * Food sources of sodium in salt and healthy modifications for heart health in kidney health: R V R/V * Vitamins and minerals: R V N/R * Healthy plate method concept: R * Physical activity: Benefits a precaution: R V N/R * Hypoglycemia protocol (rule of 15): R V N/R * Dietary prevention of Hyperglycemia: R Patient Instructions: Work on balancing meals , having 3 meals per day following healthy plate method reducing carbs to 80 g or less at meals keep hydrated by having water with meals /snacks Coding Level of Care Code Nutr Indiv Intake (82680) Diagnoses Type 2 diabetes mellitus with hyperglycemia, without long-term current use of insulin E11.65 Diabetes mellitus type: type 2 Diabetes mellitus local intermodal truck driver insulin use: without local intermodal truck driver use Diabetes mellitus complication status: with hyperglycemia Time Spent (min) 30
[2024-03-11 14:46] VITALS: BMI 36.9
[2024-03-17 14:40] VITALS: BMI 36.9
== END 2024-03-11 15:18 | disposition home or self-care (01) ==
PROVIDERS: PCP Internal Medicine; Visit Provider Dietitian, Registered
DX: E11.65 Type 2 diabetes mellitus with hyperglycemia (principal)

== ENCOUNTER → 2024-03-11 14:18 | Outpatient (BNVA) | payer BC, SELFPAY | PROVIDERS: PCP Internal Medicine; Visit Provider Dietitian, Registered | DX: E11.65 Type 2 diabetes mellitus with hyperglycemia (principal); Z71.3 Dietary counseling and surveillance | CPT/HCPCS: 97802 ==

== ENCOUNTER 2024-04-30 14:25 | Outpatient (AMB) | payer BC, SELFPAY ==
--- NOTE | 2024-04-30 14:31 | A.OFFVIS_ITS ---
VS Expanded 04/30/24 14:32 04/30/24 14:45 Height 5 ft 9 in 5 ft 9 in Weight 243 lb 6.245 oz 243 lb BMI 35.9 35.9 Intake Visit Reasons: T2DM/LVM Allergies No Known Allergies [No Known Allergies*] Allergy (Verified 05/02/24 12:42) Nutrition Presentation Details: Pt presents for MNT f/u for T2DM Pt reports working on diet modifications, reducing on sugars denies etoh - stopped in 2019 reports keeping sedentary BS Monitoring Most Recent Diabetes Results: Cholesterol 145 mg/dL (<200) 02/19/24 HDL Cholesterol 34 mg/dL (>40) L 02/19/24 Triglycerides 153 mg/dL (<150) H 02/19/24 Creatinine 0.86 mg/dL (0.5-1.4) 02/19/24 Blood Urea Nitrogen 14 mg/dL (9-16) 02/19/24 Sodium 143 mmol/L (135-145) 02/19/24 Potassium 4.0 mmol/L (3.3-5.1) 02/19/24 Chloride 110 mmol/L (96-108) H 02/19/24 Carbon Dioxide 25 mmol/L (22-29) 02/19/24 Calcium 9.2 mg/dL (8.4-10.2) 02/19/24 AST 19 U/L (5-37) 02/19/24 ALT 30 U/L (0-40) 02/19/24 Total Protein 6.9 g/dL (6.5-8.0) 02/19/24 Albumin 4.0 g/dL (3.5-5.0) 02/19/24 FYM-V[facility]-Hc.Jeor Equation Height: 5 ft 9 in Weight: 243 lb Resting Metabolic Rate: 1930.90 Calculated Activity Level: Sedentary Calories Needed to Maintain Weight: 2317.08 [facility] Medical History (Updated 04/30/24 @ 17:14 by Erika Wren MD) History of non-ST elevation myocardial infarction (NSTEMI) Essential hypertension Pure hypercholesterolemia Nicotine dependence, cigarettes, uncomplicated Tubular adenoma of colon (~2019) Obese Left hip pain Knee osteoarthritis Surgical History History of tooth extraction History of colonoscopy History of cardiac catheterization Family History (Updated 02/20/24 @ 11:16 by Erika Wren MD) Father Skin cancer Lung cancer Mother Chronic mental illness Lung cancer Brother Cerebral palsy Maternal Aunt Lung cancer Maternal Grandfather Lung cancer Family/Other Chronic mental illness Other Substance use disorder Social History Housing: Apartment Alcohol intake: never Patient Tobacco Use Status: Current everyday Tobacco user Tobacco use type: Cigarette Cigarettes Per Day: 10 Years Smoked: (onset 14yo, 1/2-3/4ppd x 40years - 25pyh) e-Cigarette/Vaping Use: Never Used Second Hand Smoke Exposure: No service: No Current occupational status: employed Current occupational exposures/hazards: No Cognitive needs: No Hearing needs: No Vision needs: No Assessment & Plan Assessment & Plan (1) Diabetes mellitus: Code(s): E11.9 - Type 2 diabetes mellitus without complications Category: Medical Qualifiers: Diabetes mellitus complication status: with hyperglycemia Diabetes mellitus assistant terminal manager insulin use: without assistant terminal manager use Diabetes mellitus type: type 2 Qualified Code(s): E11.65 - Type 2 diabetes mellitus with hyperglycemia Plan: Wt: 114 Kg (02/2024 ), 110 (04/2024) Est kcal needs as per MSJ: 2300 (40% carb, 30% protein/fat) Est fluid needs as per 25-30 ml/d: 3300 Est prot per day as per 1 g/kg bw: 110 Recommend fiber intake : 8-10 g per day and gradually increase to 25-28 g per day for women and 35-38 g for men or as tolerated Recommend sodium intake per day : less than 2000 mg Educated patient on: ( R = reviewed V = verbalizes understanding N/R = needs review N/A = not applicable * Food sources of carbohydrate, adequate serving sizes and its role in various health conditions: R * Differences between complex carbohydrates a simple carbohydrates, role of fiber in diet: R V N/R * Lean protein sources of foods: R V NR * Differences between types of fats and role in diet (mono on saturated fat fatty acids, saturated fatty acids, trans fats): R * Food sources of sodium in salt and healthy modifications for heart health in kidney health: R V R/V * Vitamins and minerals: R V N/R * Healthy plate method concept: R * Physical activity: Benefits a precaution: R V N/R * Hypoglycemia protocol (rule of 15): R V N/R * Dietary prevention of Hyperglycemia: R Patient Instructions: Continue working on balancing meals following healthy plate method Choose lean protein sources of foods at dinner (baked/broil, reduce on sauces/gravies/fats) Engage in walking 10-20 minutes daily Coding Level of Care Code Nutr Indiv Subseq (32326) Diagnoses Type 2 diabetes mellitus with hyperglycemia, without long-term current use of insulin E11.65 Diabetes mellitus complication status: with hyperglycemia Diabetes mellitus halfway insulin use: without assistant terminal manager use Diabetes mellitus type: type 2 Time Spent (min) 30
[2024-04-30 14:32] VITALS: BMI 35.9
[2024-05-08 14:45] VITALS: BMI 35.9
== END 2024-04-30 15:09 | disposition home or self-care (01) ==
PROVIDERS: PCP Internal Medicine; Visit Provider Dietitian, Registered
DX: E11.65 Type 2 diabetes mellitus with hyperglycemia (principal)

== ENCOUNTER → 2024-04-30 14:25 | Outpatient (BNVA) | payer BC, SELFPAY | PROVIDERS: PCP Internal Medicine; Visit Provider Dietitian, Registered | DX: E11.65 Type 2 diabetes mellitus with hyperglycemia (principal); Z71.3 Dietary counseling and surveillance | CPT/HCPCS: 97803 ==

== ENCOUNTER 2024-05-01 16:13 | Outpatient (REF) | payer BC, SELFPAY ==
--- NOTE | ~2024-05-01 | XR_ITS ---
EXAMINATION: XR LUMBOSACRAL SPINE CLINICAL INFORMATION: Sciatica, left-sided. Low back pain. Left hip pain. COMPARISON: None available. TECHNIQUE: AP and lateral views of the lumbar spine and lateral view of the lumbosacral junction. FINDINGS: Moderate right convex lumbar scoliosis. Moderate multilevel degenerative disc disease is more pronounced on the inner aspect of the lumbar curvature, characterized by loss of intervertebral disc height, endplate osteophytes, vacuum phenomenon, and endplate sclerosis. Facet arthropathy in the lower lumbar spine. Vertebral body heights are normal. Osteoarthritis in the right SI joint with sclerosis along the iliac margin. Atherosclerotic calcification in the iliac arteries. XR/XR lumbar spine 2-3V IMPRESSION: 1. Moderate right convex lumbar scoliosis with moderate multilevel degenerative disc disease and facet arthropathy. 2. 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 Electronically signed by: Alec Balderas MD 05/19/2024 11:48 PM EDT
== END 2024-05-01 16:14 | disposition home or self-care (01) ==
LOC: HO.XRAY 16:13
PROVIDERS: PCP Internal Medicine; Visit Provider Internal Medicine
DX: M54.32 Sciatica, left side (principal)
CPT/HCPCS: 72100

== ENCOUNTER 2024-05-02 12:29 | Outpatient (AMB) | payer BC, SELFPAY ==
[2024-05-02 12:34] VITALS: BP 124/78; PULSE 65; TEMP 37; O2SAT 98; BMI 35.4
--- NOTE | 2024-05-02 12:34 | MHC.OFFWIV ---
Intake Vital Signs 05/02/24 12:34 Height 5 ft 9 in Weight 240 lb BMI 35.4 BP 124/78 Blood Pressure Location Rt brachial Position Sitting Pulse 65 Pulse Source Pulse Oximeter Temp 98.6 F Temp Source Oral Pulse Oximetry (%) 98 Oxygen Delivery Method Room Air Intake Visit Reasons: EP pain in LT leg Intake Note: pt c/o LT leg/hip pain. Started Sunday night Patient Tobacco Use Status: Current everyday Tobacco user Allergies No Known Allergies [No Known Allergies*] Allergy (Verified 05/02/24 12:42) Do you need a note to return to daycare/school/sports/work: Yes HPI HPI Comments History of Present Illness Details Patient is a 54-year-old male complaining of 6 days of left hip pain. He states he helped move his son into his new apartment in [place] 6 days ago and was carrying very heavy things down the street which he typically does not do. He states the pain starts in his left buttocks and goes down the back of his leg he also has some knee pain and some pain around the side of his hip. He denies any loss of control of his bladder or bowels. He states he did call his primary care doctor and she prescribed him a prednisone taper which he started taking yesterday without much relief. [facility] Medical History (Updated 04/30/24 @ 17:14 by Erika Wren MD) History of non-ST elevation myocardial infarction (NSTEMI) Essential hypertension Pure hypercholesterolemia Nicotine dependence, cigarettes, uncomplicated Tubular adenoma of colon (~2020) Obese Left hip pain Knee osteoarthritis Surgical History History of tooth extraction History of colonoscopy History of cardiac catheterization Family History (Updated 02/20/24 @ 11:16 by Erika Wren MD) Father Skin cancer Lung cancer Mother Chronic mental illness Lung cancer Brother Cerebral palsy Maternal Aunt Lung cancer Maternal Grandfather Lung cancer Family/Other Chronic mental illness Other Substance use disorder Social History Housing: Apartment Alcohol intake: never Patient Tobacco Use Status: Current everyday Tobacco user Tobacco use type: Cigarette Cigarettes Per Day: 10 Years Smoked: (onset 14yo, 1/2-3/4ppd x 40years - 25pyh) e-Cigarette/Vaping Use: Never Used Second Hand Smoke Exposure: No service: No Current occupational status: employed Current occupational exposures/hazards: No Cognitive needs: No Hearing needs: No Vision needs: No Review of Systems Const All systems reviewed & are unremarkable except as noted in HPI and below Physical Exam Vital Signs: Last Vital Signs Temp 98.6 F 05/02/24 12:34 Pulse 65 05/02/24 12:34 BP 124/78 05/02/24 12:34 Pulse Ox 98 05/02/24 12:34 Oxygen Delivery Method Room Air 05/02/24 12:34 BMI result Body Mass Index 35.4 Const General: cooperative, healthy appearing and comfortable Orientation/consciousness: patient oriented x3 HEENT Head: Yes normal to inspection and Yes normocephalic General nose exam: Normal external nose present Face and sinus: Yes normal facial exam Eyes General: appearance normal, both eyes and all related structures Resp Effort & Inspection: normal respiratory effort and able to speak in complete sentences Back/Spine/Pelvis Cervical Spine: cervical ROM normal and No Cervical spine tenderness Thoracic/Lumbar Spine: thoracic and lumbar spine normal to inspection, No paraspinal muscle tenderness, No thoraco-lumbar ROM limited, No thoracic spinal tenderness and No lumbar spinal tenderness Pelvis: no pain with lateral compression, no buttock ecchymosis, buttock tenderness on the left and no buttock swelling Neuro General: patient oriented x3 Extrem Other: Straight leg raise test negative on right; Straight leg raise test positive on left ; full ROM however with pain left leg. Assessment & Plan Assessment & Plan (1) Left sided sciatica: Code(s): M54.32 - Sciatica, left side Plan: Recommended patient take that prescription his PCP gave him and take 30 mg a day for the next 4 days so it is more of a burst, he can add Aleve, ice and rest. If no resolution in symptoms, he should follow up with his PCP. Plan See above Coding Level of Care Code Est Pt Level 3 (02008) Diagnoses Left sided sciatica M54.32
== END 2024-05-02 13:03 | disposition home or self-care (01) ==
PROVIDERS: PCP Internal Medicine; Visit Provider Physician Assistant
DX: M54.32 Sciatica, left side (principal)
CPT/HCPCS: 99213

== ENCOUNTER 2024-06-16 14:23 | Outpatient (AMB) | payer BC, SELFPAY ==
[2024-06-16 14:35] VITALS: BMI 34.7
--- NOTE | 2024-06-16 14:35 | MHC.AMNUTRGE ---
VS Expanded 06/16/24 14:35 06/16/24 14:50 Height 5 ft 9 in 5 ft 9 in Weight 234 lb 12.677 oz 235 lb BMI 34.7 34.7 Intake Visit Reasons: T2DM/LVM Allergies No Known Allergies [No Known Allergies*] Allergy (Verified 05/02/24 12:42) Nutrition Presentation Details: PT presents for MNT f/u Pt reports monitoring 1-2 x/wk in the fasting state ,and bg ranging from 111- 135 Pt reports working on reducing on pastries and high sugar foods BS Monitoring Most Recent Diabetes Results: Cholesterol 145 mg/dL (<200) 02/19/24 HDL Cholesterol 34 mg/dL (>40) L 02/19/24 Triglycerides 153 mg/dL (<150) H 02/19/24 Creatinine 0.86 mg/dL (0.5-1.4) 02/19/24 Blood Urea Nitrogen 14 mg/dL (9-16) 02/19/24 Sodium 143 mmol/L (135-145) 02/19/24 Potassium 4.0 mmol/L (3.3-5.1) 02/19/24 Chloride 110 mmol/L (96-108) H 02/19/24 Carbon Dioxide 25 mmol/L (22-29) 02/19/24 Calcium 9.2 mg/dL (8.4-10.2) 02/19/24 AST 19 U/L (5-37) 02/19/24 ALT 30 U/L (0-40) 02/19/24 Total Protein 6.9 g/dL (6.5-8.0) 02/19/24 Albumin 4.0 g/dL (3.5-5.0) 02/19/24 RDB-Amqcvhl-Br.Jeor Equation Height: 5 ft 9 in Weight: 235 lb Resting Metabolic Rate: 1894.65 Calculated Activity Level: Sedentary Calories Needed to Maintain Weight: 2273.58 [facility] Medical History (Updated 04/30/24 @ 17:14 by Erika Wren MD) History of non-ST elevation myocardial infarction (NSTEMI) Essential hypertension Pure hypercholesterolemia Nicotine dependence, cigarettes, uncomplicated Tubular adenoma of colon (~2019) Obese Left hip pain Knee osteoarthritis Surgical History History of tooth extraction History of colonoscopy History of cardiac catheterization Family History (Updated 02/20/24 @ 11:16 by Erika Wren MD) Father Skin cancer Lung cancer Mother Chronic mental illness Lung cancer Brother Cerebral palsy Maternal Aunt Lung cancer Maternal Grandfather Lung cancer Family/Other Chronic mental illness Other Substance use disorder Social History Housing: Apartment Alcohol intake: never Patient Tobacco Use Status: Current everyday Tobacco user Tobacco use type: Cigarette Cigarettes Per Day: 10 Years Smoked: (onset 14yo, 1/2-3/4ppd x 40years - 25pyh) e-Cigarette/Vaping Use: Never Used Second Hand Smoke Exposure: No service: No Current occupational status: employed Current occupational exposures/hazards: No Cognitive needs: No Hearing needs: No Vision needs: No Assessment & Plan Assessment & Plan (1) Diabetes mellitus: Code(s): E11.9 - Type 2 diabetes mellitus without complications Category: Medical Qualifiers: Diabetes mellitus type: type 2 Diabetes mellitus superintendent container terminal insulin use: without superintendent container terminal use Diabetes mellitus complication status: with hyperglycemia Qualified Code(s): E11.65 - Type 2 diabetes mellitus with hyperglycemia Plan: Wt: 114 Kg (02/2024 ), 110 (04/2024), 107 kg(06/19 Est kcal needs as per MSJ: 2300 (40% carb, 30% protein/fat) Est fluid needs as per 25-30 ml/d: 3300 Est prot per day as per 1 g/kg bw: 110 Recommend fiber intake : 8-10 g per day and gradually increase to 25-28 g per day for women and 35-38 g for men or as tolerated Recommend sodium intake per day : less than 2000 mg Educated patient on: ( R = reviewed V = verbalizes understanding N/R = needs review N/A = not applicable Food sources of carbohydrate, adequate serving sizes and its role in various health conditions: R Differences between complex carbohydrates a simple carbohydrates, role of fiber in diet: R V N/R Lean protein sources of foods: R V NR Differences between types of fats and role in diet (mono on saturated fat fatty acids, saturated fatty acids, trans fats): R Food sources of sodium in salt and healthy modifications for heart health in kidney health: R V R/V Vitamins and minerals: R V N/R Healthy plate method concept: R Physical activity: Benefits a precaution: R V N/R Hypoglycemia protocol (rule of 15): R V N/R Dietary prevention of Hyperglycemia: R Patient Instructions: Include omega 3 sources of foods (flaxseed, walnuts, see list of options) Take vitamin vitamin D as prescribed by your doctor- and incorporated vitamin D rich foods Coding Level of Care Code Nutr Indiv Subseq (98296) Diagnoses Type 2 diabetes mellitus with hyperglycemia, without long-term current use of insulin E11.65 Diabetes mellitus type: type 2 Diabetes mellitus superintendent container terminal insulin use: without superintendent container terminal use Diabetes mellitus complication status: with hyperglycemia Time Spent (min) 30
[2024-06-17 14:48] VITALS: BMI 34.7
== END 2024-06-16 15:16 | disposition home or self-care (01) ==
PROVIDERS: PCP Internal Medicine; Visit Provider Dietitian, Registered
DX: E11.65 Type 2 diabetes mellitus with hyperglycemia (principal)

== ENCOUNTER → 2024-06-16 14:23 | Outpatient (BNVA) | payer BC, SELFPAY | PROVIDERS: PCP Internal Medicine; Visit Provider Dietitian, Registered | DX: E11.65 Type 2 diabetes mellitus with hyperglycemia (principal); Z71.3 Dietary counseling and surveillance | CPT/HCPCS: 97803 ==

== ENCOUNTER 2024-07-01 15:44 | Outpatient (AMB) | payer BC, SELFPAY ==
[2024-07-01 15:47] VITALS: BP 130/86; BMI 34.1
--- NOTE | 2024-07-01 15:47 | A.OFFPC_ITS ---
Vital Signs 07/01/24 15:47 Height 5 ft 9 in Weight 231 lb BMI 34.1 BP 130/86 Blood Pressure Location Lt brachial Position Sitting Intake Visit Reasons: bp Intake Note: Patient here for a follow up BP Marketing Services Rep Required: No Accompanied by: Self / Same As Patient Allergies No Known Allergies [No Known Allergies*] Allergy (Verified 07/01/24 16:02) Medication List - Last Reconciled 07/01/24 by Erika Wren MD aspirin 81 mg PO DAILY 90 days atorvastatin 80 mg PO DAILY 90 days blood sugar diagnostic (FreeStyle Lite Strips) Use 1 test strip once a day blood-glucose meter (FreeStyle Lite Meter kit) As directed cholecalciferol (vitamin D3) 25 mcg PO DAILY 90 days cyclobenzaprine 10 mg PO BEDTIME PRN 7 days lancets (FreeStyle Lancets) Use 1 lancet once a day lisinopril 30 mg PO DAILY 90 days meloxicam 15 mg PO DAILY 90 days metoprolol succinate ER 25 mg PO DAILY 90 days prednisone 10 mg PO DIRECTED 8 days Tobacco use date assessed: 02/20/24 Dental Screening Dental Screen Date: 02/20/24 HPI HPI Comments History of Present Illness Details This is a 54 year old male with diabetes mellitus type 2, hypertension, pure hypercholesterolemia and knee osteoarthritis that comes today for follow up on his conditions. BP stable. A1c within goal and stop taking Metformin over a month ago due to diarrhea. Last LDL was not on goal and this will be repeated. On NSAIDs prn for knee osteoarthritis. Has intentionally lost weight. No chest pain or shortness of breath. [facility] Medical History History of non-ST elevation myocardial infarction (NSTEMI) Essential hypertension Pure hypercholesterolemia Nicotine dependence, cigarettes, uncomplicated Tubular adenoma of colon (~2019) Obese Left hip pain Knee osteoarthritis Surgical History History of tooth extraction History of colonoscopy History of cardiac catheterization Family History Father Skin cancer Lung cancer Mother Chronic mental illness Lung cancer Brother Cerebral palsy Maternal Aunt Lung cancer Maternal Grandfather Lung cancer Family/Other Chronic mental illness Other Substance use disorder Social History Housing: Apartment Alcohol intake: never Patient Tobacco Use Status: Current everyday Tobacco user Tobacco use type: Cigarette Cigarettes Per Day: 10 Years Smoked: (onset 14yo, 1/2-3/4ppd x 40years - 25pyh) e-Cigarette/Vaping Use: Never Used Second Hand Smoke Exposure: No service: No Current occupational status: employed Current occupational exposures/hazards: No Cognitive needs: No Hearing needs: No Vision needs: No Questionnaire Thrive Questionnaire Date Thrive assessed: 02/20/24 AUDIT C Alcohol Use Questionnaire (AUDIT-C) 3. How often do you have six or more drinks on one occasion?: Never Total Score: 0 JAYDEN-7 AMB Questionnaire JAYDEN-7 Date JAYDEN - 7 assessed: 02/20/24 Source: Developed by Drs. Tae Clark, Hayley Joe, Emerson Robledo and colleagues, with an educational bruce from [employer]. Review of Systems Const All systems reviewed & are unremarkable except as noted in HPI and below Card Denies chest pain at rest, Denies chest pain with activity, Denies edema, Denies irregular heart rhythm, Denies claudication, Denies dyspnea, Denies dyspnea on exertion, Denies orthopnea, Denies paroxysmal nocturnal dyspnea and Denies slow heart rate Resp Denies cough, Denies dyspnea and Denies dyspnea on exertion Neuro Denies behavioral changes and Denies lack of coordination Psych Denies behavioral changes Physical exam (Primary Care) Vital Signs: Last Vital Signs BP 130/86 07/01/24 15:47 BMI result Body Mass Index 34.1 BMI Assessment/Plan discussion: High BMI High, discussed plan: lifestyle, weight reduction, dietary and physical activity Tobacco/Smoking Status: Tobacco use Status Tobacco use date assessed 02/20/24 07/01/24 15:56 Patient Tobacco Use Status Current everyday Tobacco 07/01/24 15:56 Tobacco use type Cigarette 07/01/24 15:56 e-Cigarette/Vaping Use Never Used 07/01/24 15:56 Are you ready to quit: No Tobacco cessation counseling provided: Yes Items discussed: Nicotine replacement and QuitWorks Relapse Prevention: discussed the importance of a supportive environment, discussed extending NRT, discussed negative mood or depression after quitting, weight gain after smoking is common and discussed dietary, exercise and/or lifestyle changes Number of minutes spent counselin CPT code: 48208 - 4-10 Minutes Thrive Assessment: Date of Thrive Assessment Date Thrive assessed 02/20/24 07/01/24 15:56 Resp Effort & Inspection: normal respiratory effort Auscultation: clear to auscultation bilaterally Cardio Jugular venous distension: no JVD Rate: regular rate Rhythm: regular rhythm Heart sounds: S1 normal heart sound present and S2 normal heart sound present Extrem General: Yes full ROM Office Procedures Flu Questionnaire Does the patient have a severe egg allergy?: No Results AMB Hemoglobin A1c AMB Hemoglobin A1c 6.2 % Last Edit by ANTONIO Frances on 07/01/24 16:0 1 Immunizations Fluarix Triv [id number] (PF) 45 mcg (15 mcg x 3)/0.5 mL IM syringe Performing Provider: Erika Wren MD [facility] Documented (not given) by: ANTONIO Frances on 07/01/24 15:56 Reason Not Given: Patient Refused Results Reviewed Results Reviewed: Laboratory Last Values Hgb A1c (Clinic) 6.2 % (4.0-6.0) H 07/01/24 15:47 Coding Level of Care Code Est Pt Level 4 (06415) Complex EM visit Add On G2211 Diagnoses Type 2 diabetes mellitus with hyperglycemia, without long-term current use of insulin E11.65 Diabetes mellitus type: type 2 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: without buttermilk drier operator use Diabetes mellitus complication status: with hyperglycemia Essential hypertension I10 Pure hypercholesterolemia E78.00 Knee osteoarthritis M17.10 Additional Codes Vital Signs *Quality* - CPT code: 74662 - 4-10 Minutes ([id number]) Time Spent (min) 25 Assessment & Plan Assessment & Plan (1) Diabetes mellitus: Code(s): E11.9 - Type 2 diabetes mellitus without complications Category: Medical Qualifiers: Diabetes mellitus type: type 2 Diabetes mellitus senior living insulin use: without buttermilk drier operator use Diabetes mellitus complication status: with hyperglycemia Qualified Code(s): E11.65 - Type 2 diabetes mellitus with hyperglycemia Plan: Continue diet and exercise. A1c goal is less than 7%. (2) Essential hypertension: Code(s): I10 - Essential (primary) hypertension Category: Medical Plan: Continue lisinopril. BP goal is equal or less than 130/80. (3) Pure hypercholesterolemia: Code(s): E78.00 - Pure hypercholesterolemia, unspecified Category: Medical Plan: Continue statin. LDL goal is less than 70. (4) Knee osteoarthritis: Code(s): M17.10 - Unilateral primary osteoarthritis, unspecified knee Category: Medical Plan: Continue NSAIDs. Orders: Orders Microalbumin, Random (w Creat) 4 Months R80.9 - Proteinuria, unspecified Comprehensive [place]. Panel Fast 4 Months E11.65 - Type 2 diabetes mellitus with hyperglycemia Influenza [id number] Immunization Today Z23 - Encounter for immunization AMB Hemoglobin A1c Today E11.65 - Type 2 diabetes mellitus with hyperglycemia Vitamin D 25-OH Total 4 Months E55.9 - Vitamin D deficiency, unspecified Lipid Panel 4 Months E78.5 - Hyperlipidemia, unspecified
== END 2024-07-01 16:15 | disposition home or self-care (01) ==
LOC: HO.HMCH 15:44
PROVIDERS: PCP Internal Medicine; Visit Provider Internal Medicine
DX: E11.65 Type 2 diabetes mellitus with hyperglycemia (principal); I10 Essential (primary) hypertension; E78.00 Pure hypercholesterolemia, unspecified; M17.10 Unilateral primary osteoarthritis, unspecified knee; Z23 Encounter for immunization

== ENCOUNTER → 2024-07-01 15:44 | Outpatient (BNVA) | payer BC, SELFPAY | PROVIDERS: PCP Internal Medicine; Visit Provider Internal Medicine | DX: E11.65 Type 2 diabetes mellitus with hyperglycemia (principal); I10 Essential (primary) hypertension; E78.00 Pure hypercholesterolemia, unspecified; M17.10 Unilateral primary osteoarthritis, unspecified knee; Z79.899 Other long term (current) drug therapy; Z28.21 Immunization not carried out because of patient refusal | CPT/HCPCS: 83036; 90471 ==

== ENCOUNTER 2024-07-28 14:19 | Outpatient (AMB) | payer BC, SELFPAY ==
--- NOTE | 2024-07-28 14:32 | A.OFFVIS_ITS ---
VS Expanded 07/28/24 14:33 Height 5 ft 9 in Weight 233 lb 0.458 oz BMI 34.4 Intake Visit Reasons: T2DM/LVM Allergies No Known Allergies [No Known Allergies*] Allergy (Verified 07/01/24 16:02) Nutrition Presentation Details: Pt presents for MNT f/u for T2DM, controlled via diet most recent A1c at 6.2% 07/20 physical activity: daily life activity Continues to work on reducing empty calorie foods food frequency fruits 2-3 /d fish : 1-2x/wk ve serving/d dairy 3+d starches >20 servings BS Monitoring Most Recent Diabetes Results: No Data to Display PFSH Medical History History of non-ST elevation myocardial infarction (NSTEMI) Essential hypertension Pure hypercholesterolemia Nicotine dependence, cigarettes, uncomplicated Tubular adenoma of colon (~2019) Obese Left hip pain Knee osteoarthritis Surgical History History of tooth extraction History of colonoscopy History of cardiac catheterization Family History Father Skin cancer Lung cancer Mother Chronic mental illness Lung cancer Brother Cerebral palsy Maternal Aunt Lung cancer Maternal Grandfather Lung cancer Family/Other Chronic mental illness Other Substance use disorder Social History Housing: Apartment Alcohol intake: never Patient Tobacco Use Status: Current everyday Tobacco user Tobacco use type: Cigarette Cigarettes Per Day: 10 Years Smoked: (onset 14yo, 1/2-3/4ppd x 40years - 25pyh) e-Cigarette/Vaping Use: Never Used Second Hand Smoke Exposure: No service: No Current occupational status: employed Current occupational exposures/hazards: No Cognitive needs: No Hearing needs: No Vision needs: No Assessment & Plan Assessment & Plan (1) Diabetes mellitus: Code(s): E11.9 - Type 2 diabetes mellitus without complications Category: Medical Qualifiers: Diabetes mellitus type: type 2 Diabetes mellitus 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 computer terminal operator insulin use: without shelter use Diabetes mellitus complication status: with hyperglycemia Qualified Code(s): E11.65 - Type 2 diabetes mellitus with hyperglycemia Plan: Wt: 114 Kg (02/2024 ), 110 (04/2024), 107 kg(06/19), 105 kg (08/19) Est kcal needs as per MSJ: 2300 (40% carb, 30% protein/fat) Est fluid needs as per 25-30 ml/d: 3200 Est prot per day as per 1 g/kg bw: 110 Recommend fiber intake : 8-10 g per day and gradually increase to 25-28 g per day for women and 35-38 g for men or as tolerated Recommend sodium intake per day : less than 2000 mg Educated patient on: ( R = reviewed V = verbalizes understanding N/R = needs review N/A = not applicable * Food sources of carbohydrate, adequate serving sizes and its role in various health conditions: R * Differences between complex carbohydrates a simple carbohydrates, role of fiber in diet: R V N/R * Lean protein sources of foods: R V NR * Differences between types of fats and role in diet (mono on saturated fat fatty acids, saturated fatty acids, trans fats): R * Food sources of sodium in salt and healthy modifications for heart health in kidney health: R V R/V * Vitamins and minerals: R V N/R * Healthy plate method concept: R * Physical activity: Benefits a precaution: R * Hypoglycemia protocol (rule of 15): R V N/R * Dietary prevention of Hyperglycemia: R Patient Instructions: Engage in physical activity as able unless otherwise specified by your doctors Continue working on portion reduction following healthy plate method Include fiber rich foods (vegetables, fruits, whole grain, legumes ) and increase water/fluid as you increase fiber to prevent constipation Coding Level of Care Code Nutr Indiv Subseq (60761) Diagnoses Type 2 diabetes mellitus with hyperglycemia, without long-term current use of insulin E11.65 Diabetes mellitus type: type 2 Diabetes mellitus remote computer terminal operator insulin use: without shelter use Diabetes mellitus complication status: with hyperglycemia Time Spent (min) 20
[2024-07-28 14:33] VITALS: BMI 34.4
== END 2024-07-28 15:07 | disposition home or self-care (01) ==
PROVIDERS: PCP Internal Medicine; Visit Provider Dietitian, Registered
DX: E11.65 Type 2 diabetes mellitus with hyperglycemia (principal)

== ENCOUNTER → 2024-07-28 14:19 | Outpatient (BNVA) | payer BC, SELFPAY | PROVIDERS: PCP Internal Medicine; Visit Provider Dietitian, Registered | DX: E11.65 Type 2 diabetes mellitus with hyperglycemia (principal); Z71.3 Dietary counseling and surveillance; E66.9 Obesity, unspecified; Z68.34 Body mass index [BMI] 34.0-34.9, adult | CPT/HCPCS: 97803 ==

== ENCOUNTER 2024-08-06 06:19 | Inpatient (IN) | payer BC, SELFPAY ==
[2024-08-06] VITALS (26 sets, daily range): BP systolic 117–169; BP diastolic 69–96; PULSE 57–74; RESP 11–20; TEMP 36.3–37.7; O2SAT 91–98; BMI 31.9
--- NOTE | ~2024-08-06 | MR_ITS ---
EXAMINATION: MR BRAIN WITHOUT CONTRAST CLINICAL INFORMATION: Stroke COMPARISON: None available. TECHNIQUE: MRI of the brain was obtained using routine sequences without contrast. FINDINGS: Acute infarct involving the superior cerebellar vermis just right of midline. No hemorrhagic transformation. No midline shift or hydrocephalus. No acute extra-axial fluid collections. The osseous structures are unremarkable. The pituitary gland, pineal gland and remaining midline structures are unremarkable. No orbital pathology. The paranasal sinuses and mastoid air cells are clear. 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 No hemorrhagic transformation. Electronically signed by: Feroz Colon MD 08/07/2024 12:58 PM [facility]
--- NOTE | ~2024-08-06 | CT_ITS ---
EXAMINATION: CT HEAD WITHOUT CONTRAST (STROKE PROTOCOL) CLINICAL INFORMATION: Stroke protocol. Ataxia COMPARISON: None available. TECHNIQUE: Contiguous axial imaging was performed from the skull base to vertex without intravenous administration of contrast. This CT examination was performed using dose optimization techniques as appropriate, variously including the following: *Automated exposure control *Adjustment of mA and/or kV according to patient size (this includes techniques or standardized protocols for targeted exams where dose is matched to indication/reason for exam; i.e. extremities or head) *Use of iterative reconstruction technique DLP: 696 mGy-cm FINDINGS: No intracranial hemorrhage, tumors or acute infarcts identified. The ventricles and sulci are normal in size and configuration. No focal parenchymal lesions of the brain or abnormal extra-axial fluid collections identified. Normal appearance of the orbits and globes. No extracranial soft tissue inflammatory changes. No significant opacification of the visualized paranasal sinuses, mastoid air cells and middle ear cavities. CT/CT head for STROKE IMPRESSION: Normal unenhanced CT of the head. This result was discussed with Kim Olguin DO by telephone at 08/06/2024 6:45 AM EST and it was ascertained that the content and urgency of the report was understood at the time of direct communication. Electronically signed by: Kobe Parra MD 08/06/2024 06:46 AM [facility]
--- NOTE | ~2024-08-06 | CT_ITS ---
EXAMINATION: CTA NECK WITH CONTRAST (STROKE) CTA BRAIN WITH CONTRAST (STROKE) CLINICAL INFORMATION: Ataxia, Suspect acute stroke. Assess for major vessel occlusion. Please call report. COMPARISON: Stroke CT scan of brain on 08/06/2024 TECHNIQUE: CTA of the head and neck was performed in the axial plane from the mediastinum to the skull vertex using 70 mL Omnipaque 350 intravenous contrast. Additional reformatted multiplanar images including maximum intensity projection MIP images are generated on the CT workstation. This CT examination was performed using dose optimization techniques as appropriate, variously including the following: *Automated exposure control *Adjustment of mA and/or kV according to patient size (this includes techniques or standardized protocols for targeted exams where dose is matched to indication/reason for exam; i.e. extremities or head) *Use of iterative reconstruction technique DLP: 1584 mGy-cm EXAMINATION: CT brain. FINDINGS: Ventricles, sulci and cisterns are normal. There is no midline shift, no abnormal intra- or extra- axial fluid accumulation. Martinez and white matter differentiation is normal. Postcontrast images show normal enhancement of major intracerebral blood vessels. No enhancing intracranial mass lesion or abnormal meningeal enhancement is seen. Bone window images show no evidence of skull fracture. CT/CT angio head neck STROKE IMPRESSION: 1. Unchanged Normal CT scan of the brain. 2. No intracranial hemorrhage or skull fracture is seen. 3. No evidence of space occupying or enhancing intracranial mass lesion could be found. 4. The current plain CT scan of the brain shows no diagnostic evidence of acute cerebral infarction. EXAMINATION: CT angiogram of brain. COMPARISON: None available. FINDINGS: There is normal visualization of bilateral anterior, middle and posterior cerebral arteries, internal carotid arteries, basilar artery and terminal portions of bilateral vertebral arteries. Anterior communicating artery is normal. Bilateral posterior communicating arteries are normal. Bilateral internal carotid siphons are smoothly patent. Timing of the bolus allows assessment of the major dural venous sinuses. The major cerebral venous sinuses show normal contrast filling. IMPRESSION: 1. Normal CT angiogram of the brain. 2. No focal cerebral arterial lesion or significant arterial stenosis is seen. EXAMINATION: CT angiogram of neck. COMPARISON: None available. STENOSIS MEASUREMENT: Degree of stenosis was measured and calculated based on NASCET criteria. Carotid stenosis reference using NASCET criteria: % stenosis = (1 - narrowest ICA diameter/diameter of distal cervical ICA) x 100. Mild - < 50% stenosis. Moderate - 50-69% stenosis. Severe - 70-94% stenosis. Near occlusion - 95-99% stenosis. Occluded - 100% stenosis. FINDINGS: RIGHT SIDE: Right internal carotid artery: Smoothly patent. Right external carotid artery: Smoothly patent. Right common carotid artery: Smoothly patent. Right vertebral artery: Smoothly patent. LEFT SIDE: Left internal carotid artery: Smoothly patent. Left external carotid artery: Smoothly patent. Left common carotid artery: Smoothly patent. Left vertebral artery: Smoothly patent. At the superior mediastinum, the visualized right innominate artery, bilateral subclavian arteries and common carotid arteries are smoothly patent starting from the origin at the aortic arch. There is a bovine arch with the right innominate artery and left common carotid artery sharing a common trunk from the aortic arch. IMPRESSION: 1. Normal CT angiogram of the neck. No evidence of significant carotid stenosis. 2. Patent bilateral vertebral arteries of similar sizes. This critical result was reported through environmental projects advisor to Dr.Tor Mcfadden on 08/06/2024 at 1051 hours EST and it was ascertained that the content and urgency of this report was understood at the time of direct communication. Electronically signed by: Corona Vo MD 08/06/2024 10:56 AM EST
--- NOTE | 2024-08-06 06:29 | ECG_ITS ---
Test Reason : STROKE Blood Pressure : / mmHG Vent. Rate : 066 BPM Atrial Rate : 066 BPM P-R Int : 174 ms QRS Dur : 104 ms QT Int : 410 ms P-R-T Axes : 039 052 027 degrees QTc Int : 429 ms Normal sinus rhythm Normal ECG When compared with ECG of 03-JUL-2023 17:47, No significant change was found Referred By: Kim Olguin Electronically Signed By:MICHAEL GOOD MD
--- NOTE | 2024-08-06 06:32 | ED.GENADULT ---
HPI - General Adult General Chief complaint: Stroke Stated complaint: potential stroke Time Seen by Provider: 08/06/24 06:30 History of Present Illness ED Provider: Lesa STANTON narrative: The patient is a 54-year-old male with a history of type 2 diabetes, hypertension, and elevated cholesterol who says that he woke up at around 05:00 this morning. When he woke up he felt normal and took his dog outside to go for a walk. While outside he developed acute dizziness and difficulty walking. He called his regular doctor's office and was advised to take 3 baby aspirin and come to the emergency room. A family member then drove him to the emergency room. He has a mild headache. He has had some nausea and vomiting. He does not feel his symptoms worsened when he moves his head. He has never had an episode like this before. His thinks that his speech might be slightly different. Related Data Previous Rx's ?Medication ?Instructions ?Recorded metoprolol succinate 25 mg 25 mg PO DAILY 90 days #90 tabs 07/04/23 tablet,extended release 24 hr atorvastatin 80 mg tablet 80 mg PO DAILY 90 days #90 tabs 10/09/23 aspirin 81 mg tablet,delayed 81 mg PO DAILY 90 days #90 tabs 02/20/24 release blood sugar diagnostic (FreeStyle #50 ea 02/20/24 Lite Strips) blood-glucose meter (FreeStyle #1 ea 02/20/24 Lite Meter kit) cholecalciferol (vitamin D3) 25 25 mcg PO DAILY 90 days #90 caps 02/20/24 mcg (1,000 unit) capsule lancets 28 gauge (FreeStyle #100 ea 02/20/24 Lancets) cyclobenzaprine 10 mg tablet 10 mg PO BEDTIME PRN muscle spasm 04/30/24 7 days #7 tabs meloxicam 15 mg tablet 15 mg PO DAILY 90 days #90 tabs 04/30/24 prednisone 10 mg tablet 10 mg PO DIRECTED 8 days #20 04/30/24 tabs lisinopril 30 mg tablet 30 mg PO DAILY 90 days #90 tabs 05/01/24 Allergies Allergy/AdvReac Type Severity Reaction Status Date / Time No Known Allergies Allergy Verified 08/06/24 06:39 [No Known Allergies*] Review of Systems Review of Systems: Yes all other systems are reviewed and are negative [facility] Past Medical History Medical History History of non-ST elevation myocardial infarction (NSTEMI) Essential hypertension Pure hypercholesterolemia Nicotine dependence, cigarettes, uncomplicated Tubular adenoma of colon (~2020) Obese Left hip pain Knee osteoarthritis Surgical History History of tooth extraction History of colonoscopy History of cardiac catheterization Family History Family History Father Skin cancer Lung cancer Mother Chronic mental illness Lung cancer Brother Cerebral palsy Maternal Aunt Lung cancer Maternal Grandfather Lung cancer Family/Other Chronic mental illness Other Substance use disorder Social History Social History Housing: Apartment Alcohol intake: never Patient Tobacco Use Status: Current everyday Tobacco user Tobacco use type: Cigarette Cigarettes Per Day: 10 Years Smoked: (onset 14yo, 1/2-3/4ppd x 40years - 25pyh) Smoked in Last 30 Days: Yes e-Cigarette/Vaping Use: Never Used Second Hand Smoke Exposure: No Use of substances other than those prescribed or required for medical reasons: No Advance Directives: No Advance Directives Information Provided: Yes service: No Current occupational status: employed Current occupational exposures/hazards: No Cognitive needs: No Hearing needs: No Vision needs: No Physical Exam ED Vital Signs: Vital Signs - 24 hr 08/06/24 07:08 08/06/24 07:17 08/06/24 07:48 Temperature 97.5 F Pulse Rate 68 64 62 Respiratory Rate 16 16 16 Blood Pressure 169/94 H 157/95 H 159/78 H Pulse Oximetry 93 94 93 Oxygen Delivery Method Room Air Room Air Room Air 08/06/24 08:05 08/06/24 08:26 Temperature 97.4 F Pulse Rate 62 59 Respiratory Rate 16 16 Blood Pressure 146/88 H 156/88 H Pulse Oximetry 92 94 Oxygen Delivery Method Room Air Room Air BMI result Body Mass Index 31.9 Const Other: The patient is 54-year-old male who looks somewhat older than his age. He is awake and alert. He does not appear obviously uncomfortable. No obvious neurological deficit is apparent. HENMT Other: No obvious facial asymmetry. Mucous membranes moist. Airway clear. Eyes Other: Pupils are round equal, extraocular movements are intact, lateral gaze is intact bilaterally. Visual johnson are intact to confrontation Neck Neck: Yes full ROM and Yes no JVD Resp Effort & Inspection: normal respiratory effort Auscultation: clear to auscultation bilaterally Cardio Rate: regular rate Rhythm: regular rhythm Heart sounds: S1 normal heart sound present and S2 normal heart sound present GI Other: Abdomen is soft and nontender Skin Other: Skin is pale and dry General skin exam: no rashes or lesions noted Neuro Other: The patient is awake and alert with a normal mental status. He is oriented and follows commands. Lateral gaze is intact. Visual johnson are intact. There is no aphasia. . There may be some trace dysarthria. Strength is 5/5 in all 4 extremities. No pronator drift. Finger-nose is normal. Heel-powell is normal. Sensation is intact. No neglect. He has a distinct ataxic great. NIH stroke scale is 1 because of some very slight dysarthria. Medications Administered Generic Name Dose Route Start Last Admin Trade Name Freq PRN Reason Stop Dose Admin Omeprazole 40 mg 08/06/24 08:45 08/06/24 08:53 Omeprazole 40 Mg Capsule.Dr ABREU Not Given DAILY@0630 [facility] Discontinued Medications Generic Name Dose Route Start Last Admin Trade Name Freq PRN Reason Stop Dose Admin Iohexol 70 ml 08/06/24 06:46 08/06/24 06:47 Iohexol 350 Mg/Ml 100 Ml Infus..Btl IV 08/06/24 06:47 70 ml ONCE ONE Administration Ondansetron HCl 4 mg 08/06/24 07:09 08/06/24 07:16 Ondansetron Hcl 4 Mg/2 Ml Vial IVPUSH 08/06/24 07:10 4 mg ONCE ONE Administration Tenecteplase 25 mg 08/06/24 07:09 08/06/24 07:16 Tenecteplase 50 Mg/10 Ml Kit IVPUSH 08/06/24 07:10 25 mg ONCE ONE Administration Medical Decision Making Medical Decision Making [facility] Narrative: The patient is a 54-year-old male who developed acute difficulty walking after waking up this morning. He had woken up at around 05:00 and initially had no problems. At about 515 he became abruptly ataxic and was brought to the hospital. His NIH stroke scale is almost 0. He may have some minimal dysarthria. Otherwise his primary neurological deficit is a distinctly ataxic gait. This is not measured by the NIH stroke scale. This was potentially consistent with a posterior circulation stroke. A noncontrast head CT was negative. I spoke to Dr. Carpenter of Neurology. The patient has no contraindications to thrombolytics. He is not on anticoagulation. Blood pressure and lab results were all within acceptable parameters for thrombolytic administration. I spoke to the patient about the potential risks of thrombolytics and we agreed to proceed as he had presented to the emergency room very soon after the onset of his symptoms. The patient was given TNK. The patient will be admitted to the intensive care unit. Lab Data 08/06/24 07:07 08/06/24 07:07 Labs: Lab Results 08/06/24 08/06/24 08/06/24 Range/Units 06:36 06:49 07:07 WBC 9.4 (4.8-10.8) X10*3/uL RBC 4.64 (4.60-5.80) X10*6/uL Hgb 14.7 (14.0-18.0) g/dl Hct 40.8 L (42.0-52.0) % MCV 87.9 (80.0-98.0) fL MCH 31.7 (27.0-33.0) pg MCHC 36.0 (31.0-36.0) g/dl RDW 12.6 (11.0-16.0) % Plt Count 207 (160-400) X10*3/uL MPV 9.4 (9.4-12.4) fL Immature Gran % (Auto) 0.1 (0.0-0.4) % Neut % (Auto) 67.2 (45-73) % Lymph % (Auto) 23.2 (20-40) % Brule % (Auto) 6.4 (2-11) % Eos % (Auto) 2.4 (0-4) % Baso % (Auto) 0.7 (0-2) % Lymph # (Auto) 2.2 (1.2-4.9) X10*3/uL Brule # (Auto) 0.6 (0.1-1.2) X10*3/uL Eos # (Auto) 0.2 (0.0-0.4) X10*3/uL Baso # (Auto) 0.1 (0.0-0.2) X10*3/uL Abs Immat Gran (auto) 0.01 (0.00-0.03) X10*3/uL Absolute Neuts (auto) 6.3 (2.0-8.3) x10*3/uL Absolute Nucleated RBC 0.000 (0.0-0.012) X10*3/uL Nucleated RBC % (auto) 0.0 (0.0-0.2) /100WBC PT 11.6 (10.9-12.4) SEC Whole Blood PT 12.3 (11.1-13.5) sec INR 1.0 (0.9-1.1) Whole Blood INR 1.0 (0.9-1.1) APTT 27.6 (26.0-36.8) SEC Sodium 142 (135-145) mmol/L Potassium 3.5 (3.3-5.1) mmol/L Chloride 111 H (96-108) mmol/L Carbon Dioxide 22 (22-29) mmol/L Anion Gap 13 (12-20) BUN 15 (9-16) mg/dL Creatinine 0.82 (0.5-1.4) mg/dL Estim Creat Clear Calc 124.8 Estimated GFR > 60 POC Glucose 151 H (60-115) mg/dL Random Glucose 148 H (60-115) mg/dL Estimat Average Glucose 117 mg/dL Hemoglobin A1c % 5.7 (<6.0) % Calcium 9.5 (8.4-10.2) mg/dL Magnesium 2.0 (1.6-2.6) mg/dL Total Bilirubin 0.6 (0.0-1.0) mg/dL Direct Bilirubin 0.2 (0.0-0.5) mg/dL AST 21 (5-37) U/L ALT 28 (0-40) U/L Alkaline Phosphatase 57 (39-117) U/L Troponin I High Sens < 2.7 (<3.5-35.0) ng/L Total Protein 6.9 (6.5-8.0) g/dL Albumin 4.1 (3.5-5.0) g/dL Triglycerides 109 (<150) mg/dL Cholesterol 173 (<200) mg/dL LDL Cholesterol, Calc 112 H (<100) mg/dL HDL Cholesterol 40 L (>40) mg/dL Lipase 24 (8-78) U/L 08/06/24 Range/Units 07:11 WBC (4.8-10.8) X10*3/uL RBC (4.60-5.80) X10*6/uL Hgb (14.0-18.0) g/dl Hct (42.0-52.0) % MCV (80.0-98.0) fL MCH (27.0-33.0) pg MCHC (31.0-36.0) g/dl RDW (11.0-16.0) % Plt Count (160-400) X10*3/uL MPV (9.4-12.4) fL Immature Gran % (Auto) (0.0-0.4) % Neut % (Auto) (45-73) % Lymph % (Auto) (20-40) % Brule % (Auto) (2-11) % Eos % (Auto) (0-4) % Baso % (Auto) (0-2) % Lymph # (Auto) (1.2-4.9) X10*3/uL Brule # (Auto) (0.1-1.2) X10*3/uL Eos # (Auto) (0.0-0.4) X10*3/uL Baso # (Auto) (0.0-0.2) X10*3/uL Abs Immat Gran (auto) (0.00-0.03) X10*3/uL Absolute Neuts (auto) (2.0-8.3) x10*3/uL Absolute Nucleated RBC (0.0-0.012) X10*3/uL Nucleated RBC % (auto) (0.0-0.2) /100WBC PT (10.9-12.4) SEC Whole Blood PT 12.2 (11.1-13.5) sec INR (0.9-1.1) Whole Blood INR 1.0 (0.9-1.1) APTT (26.0-36.8) SEC Sodium (135-145) mmol/L Potassium (3.3-5.1) mmol/L Chloride (96-108) mmol/L Carbon Dioxide (22-29) mmol/L Anion Gap (12-20) BUN (9-16) mg/dL Creatinine (0.5-1.4) mg/dL Estim Creat Clear Calc Estimated GFR POC Glucose 147 H (60-115) mg/dL Random Glucose (60-115) mg/dL Estimat Average Glucose mg/dL Hemoglobin A1c % (<6.0) % Calcium (8.4-10.2) mg/dL Magnesium (1.6-2.6) mg/dL Total Bilirubin (0.0-1.0) mg/dL Direct Bilirubin (0.0-0.5) mg/dL AST (5-37) U/L ALT (0-40) U/L Alkaline Phosphatase (39-117) U/L Troponin I High Sens (<3.5-35.0) ng/L Total Protein (6.5-8.0) g/dL Albumin (3.5-5.0) g/dL Triglycerides (<150) mg/dL Cholesterol (<200) mg/dL LDL Cholesterol, Calc (<100) mg/dL HDL Cholesterol (>40) mg/dL Lipase (8-78) U/L Critical Care Time Critical Care Time Critical Care Time: Yes Total Critical Care Time: 35 Attestation: The patient was critically ill with a high probability of imminent or life-threatening deterioration. ?I spent greater than 30 minutes of discontinuous time evaluating the patient, delivering critical care at the bedside, discussing evaluating data with consultants. ?Critical care time does not include time spent performing separately billable procedures or teaching. ?Time spent performing critical care with 35 minutes. Discharge Plan Discharge Clinical Impression: Acute ataxia Patient Disposition: Admitted As Inpatient Print Language: Gibraltarian
[2024-08-06 06:40] LABS: Glucose, Whole Blood 151 mg/dL (60-115)
[2024-08-06] MEDS: iohexoL 350 MG/ML 100 ML INFUS..BTL 70 ML IV (06:47)
--- NOTE | 2024-08-06 06:51 | MHC.EDTECH ---
Patient still at CT at this time. EKG and labs delayed
[2024-08-06 06:54] LABS: Prothrombin Time Whole Bld POC 12.3 sec (11.1-13.5)
--- NOTE | 2024-08-06 07:01 | MHC.EDTECH ---
PT RESULT 12.3 INR 1.0
[2024-08-06 07:11] LABS: MANUAL DIFF FLAG NO
[2024-08-06 07:12] LABS: Basophils Absolute Auto 0.1 X10*3/uL (0.0-0.2); Basophils Percent Auto 0.7 % (0-2); Eosinophils Absolute Auto 0.2 X10*3/uL (0.0-0.4); Eosinophils Percent Auto 2.4 % (0-4); Hematocrit 40.8 % (42.0-52.0); Hemoglobin 14.7 g/dl (14.0-18.0); Imm Gran Abs Auto 0.01 X10*3/uL (0.00-0.03); Imm Gran Pct Auto 0.1 % (0.0-0.4); Lymphocytes Absolute Auto 2.2 X10*3/uL (1.2-4.9); Lymphocytes Percent Auto 23.2 % (20-40); Mean Corpuscular Hemoglobin 31.7 pg (27.0-33.0); Mean Corpuscular Volume 87.9 fL (80.0-98.0); Mean Platelet Volume 9.4 fL (9.4-12.4); Monocytes Absolute Auto 0.6 X10*3/uL (0.1-1.2); Monocytes Percent Auto 6.4 % (2-11); Neutrophils Absolute Auto 6.3 x10*3/uL (2.0-8.3); Neutrophils Percent Auto 67.2 % (45-73); Platelet Count 207 X10*3/uL (160-400); Red Blood Count 4.64 X10*6/uL (4.60-5.80); Red Cell Distribution Width 12.6 % (11.0-16.0); White Blood Count 9.4 X10*3/uL (4.8-10.8)
[2024-08-06 07:15] LABS: Prothrombin Time Whole Bld POC 12.2 sec (11.1-13.5)
[2024-08-06] MEDS: Tenecteplase 50 MG/10 ML KIT 25 MG IVPUSH (07:16)
[2024-08-06] MEDS: ondansetron HCL 4 MG/2 ML VIAL IVPUSH (07:16)
[2024-08-06 07:17] LABS: Glucose, Whole Blood 147 mg/dL (60-115)
[2024-08-06 07:18] LABS: Prothrombin Time 11.6 SEC (10.9-12.4)
[2024-08-06 07:21] LABS: Partial Thromboplastin Time 27.6 SEC (26.0-36.8)
[2024-08-06 07:29] LABS: Estimated Average Glucose 117 mg/dL; Hemoglobin A1C 140.7664 umol/L; Hemoglobin A1c % 5.7 % (<6.0); Total Hemoglobin (HGBA1C) 3649.2639 umol/L
[2024-08-06 07:30] LABS: Alanine Aminotransferase 28 U/L (0-40); Albumin Level 4.1 g/dL (3.5-5.0); Alkaline Phosphatase 57 U/L (39-117); Anion Gap 13 (12-20); Aspartate Amino Transferase 21 U/L (5-37); Bilirubin Direct 0.2 mg/dL (0.0-0.5); Bilirubin Total 0.6 mg/dL (0.0-1.0); Blood Urea Nitrogen 15 mg/dL (9-16); Calcium 9.5 mg/dL (8.4-10.2); Carbon Dioxide 22 mmol/L (22-29); Chloride 111 mmol/L (96-108); Cholesterol 173 mg/dL (<200); Creatinine Clr Calc Pharmacy 124.8; Estimated Glomerular Filt Rate > 60; Glucose Random 148 mg/dL (60-115); HDL Cholesterol 40 mg/dL (>40); LDL Cholesterol Calculated 112 mg/dL (<100); Lipase 24 U/L (8-78); Potassium 3.5 mmol/L (3.3-5.1); Sodium 142 mmol/L (135-145); Total Protein 6.9 g/dL (6.5-8.0); Triglycerides 109 mg/dL (<150)
[2024-08-06 07:36] LABS: Troponin-I High Sensitivity < 2.7 ng/L (<3.5-35.0)
--- NOTE | 2024-08-06 07:39 | PC.NURSE ---
Pt presents to ED via triage from home, reports around 515AM this morning he had sudden onset of dizziness, nausea, and unsteady gait. Did not wake up with these symptoms, developed after he walked the dog. Alert and oriented, breathing even and unlabored, skin clammy. Speech noted to be off, family confirmed, slightly slurred. +Dizziness, nausea and unsteady gait. No unilateral weakness in arms or legs. NSR on bedside rn cardiac rehab. 2 IVs established. BP within range for TNK, administered dose with 2 RNS and MD at bedside. Weight was verified by bed.
--- NOTE | 2024-08-06 07:41 | PC.NURSE ---
Swallow screen done, pt did well with small sips however when instructed to drink the 3oz, he had some leaking of fluid, wet voice and slight trouble swallowing. No sob or cough. MD notified, plan to make NPO now.
[2024-08-06] MEDS: Lactated Ringers 1,000 ML 100 ML IVCONT ×2 (09:00→19:04)
--- NOTE | 2024-08-06 09:20 | PC.NURSE ---
Speech at bedside
--- NOTE | 2024-08-06 09:46 | PC.NURSE ---
Per speech, regular diet recommended, no restrictions but will follow up. Pt alert and oriented, breathing even and unlabored. Resting in bed. 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 Pt did report episode of left calf pain/cramping that has now resolved, MD aware. Vitals monitored.
--- NOTE | 2024-08-06 10:06 | PHA.MEDREC ---
Addendum entered by Bita Campoverde RPh 08/06/24 10:35: Med rec was reviewed by [facility]. Original Note: Pharmacy Consult ? Medication Reconciliation Pharmacy has completed the medication reconciliation. Spoke to patient to confirm med list. Patient states he in no longer takes Atorvastatin 80 mg , Metformin 500 mg.
--- NOTE | 2024-08-06 12:33 | MHC.SL.SWA ---
Speech Pathologist Impression: Adequate oropharyngeal swallow coordination Risk of Aspiration Due to: Nature of condition (new onset vomiting, dizziness, dysarthria) Dysphasia Diet Status: No overt signs of dysphagia Liquid Consistency and Strategies for Safe Swallow: Liquid Intake Recommendation: Thin Liquid Intake Strategies: Straw Cup Solid Food Consistency: Dietary Recommendations: Regular Additional Modifications to Solid Foods: Oral Medication Intake: Whole with Liquid Please contact the pharmacy regarding appropriate crushable or liquid drug formulations that are available whenever modified delivery is recommended. Compensatory Strategies and Precautions to be Taken for Safe Swallow: Slow pacing Upright positioning Supervision While Eating and Drinking for Safe Swallow: Assist with set up Foods to Avoid: Any foods hard to chew without lower dentures Swallowing Recommended Treatments: PHYSICAL THERAPY SUPERVISOR to followup Recommendation for Speech: Recc continued assessment of motor speech production, receptive/expressive language and cognition as indicated Comment: Frequency/Duration: Date Range for Service Req: Timeline to reassess: Credit Support Counselor Clinican/Clinical Fellow: No Supervisory Statement: I have reviewed and agree with the student/clinical fellow's documentation: No Speech Language Pathologist: Bessy Narvaez M.S., CCC-PHYSICAL THERAPY SUPERVISOR
--- NOTE | 2024-08-06 14:57 | MHC.STROKE ---
Addendum entered by Denice Byrne 08/06/24 15:01: Pt did not come by EMS Original Note: Late Entry 1000: Met with patient in room 7. Pt sleeping, easily arousable to verbal stimuli. Pt reports that at approximately 0515 this morning he became very dizzy and was unable to walk. He was brought [place] [facility] [place] and eventually medicated with TNK. Dr. Carpenter was consulted on this patient in regards to TNK administration. Pt remains dizzy, NIH score low. Mild slurred speech noted. Stroke Education provided to patient, discussion of risk factors. Education booklet provided to patient. Will continue to assist as needed.
--- NOTE | 2024-08-06 17:02 | PM.NEUROCN ---
History of Present Illness Data of Consult Service Date: 08/06/24 Primary Care Provider: Erika Wren MD HPI Reason for consult: Stroke sx s/p TNK The patient is a 54-year-old male with a history of type 2 diabetes, hypertension, and elevated cholesterol who says that he woke up at around 05:00 this morning. When he woke up he felt normal and took his dog outside to go for a walk. While outside he developed acute dizziness and difficulty walking. He called his regular doctor's office and was advised to take 3 baby aspirin and come to the emergency room. A family member then drove him to the emergency room. He had a mild headache. He has had some nausea and vomiting. He does not feel his symptoms worsened when he moves his head. He has never had an episode like this before. His thinks that his speech might be slightly different. CT was negative , so TNK was infused. He feels pretty good but feels a bit off in his balance when he gets out of bed. [facility] Past Medical History Medical History History of non-ST elevation myocardial infarction (NSTEMI) Essential hypertension Pure hypercholesterolemia Nicotine dependence, cigarettes, uncomplicated Tubular adenoma of colon (~2020) Obese Left hip pain Knee osteoarthritis Family History Family History Father Skin cancer Lung cancer Mother Chronic mental illness Lung cancer Brother Cerebral palsy Maternal Aunt Lung cancer Maternal Grandfather Lung cancer Family/Other Chronic mental illness Other Substance use disorder Surgical History Surgical History History of tooth extraction History of colonoscopy History of cardiac catheterization Social History Social History Household Members: Family Housing: House Do you presently have visiting nurse or other home services: No Alcohol intake: never Patient Tobacco Use Status: Current everyday Tobacco user Tobacco use type: Cigarette Cigarettes Per Day: 10 Years Smoked: (onset 14yo, 1/2-3/4ppd x 40years - 25pyh) Smoked in Last 30 Days: Yes e-Cigarette/Vaping Use: Never Used Patient Interested in Nicotine Replacement: No Second Hand Smoke Exposure: No Use of substances other than those prescribed or required for medical reasons: No Currently Displaying Signs/Symptoms of Drug Intoxication Withdrawal: No Have you been hit, kicked, punched, or otherwise hurt by someone within the past year? If so, by whom?: No Do you feel safe in your current relationship?: Yes Is there a partner from a previous relationship who is making you feel unsafe now?: No Are you made to feel afraid or neglected: No [facility] Healthcare Practices: muslim Advance Directives: No Advance Directives Information Provided: Yes Do you have a plan to hurt others: No Plan Recently lost weight without trying: No Nutrition Risks: On aspiration precautions service: No Current occupational status: employed Current occupational exposures/hazards: No Cognitive needs: No Hearing needs: No Vision needs: No Meds Allergies Allergy/AdvReac Type Severity Reaction Status Date / Time No Known Allergies Allergy Verified 08/06/24 06:39 [No Known Allergies*] Active Medications: Current Medications Lactated Ringer's (Lr) 1,000 mls @ 100 mls/hr IVCONT .Q10H [facility] Last Admin: 08/06/24 09:00 Dose: 100 mls/hr Omeprazole (Omeprazole 40 Mg Capsule.Dr) 40 mg PO DAILY@0630 [facility] Last Admin: 08/06/24 08:53 Dose: Not Given Physical Exam Vital Signs: Vital Signs: Last Vital Signs Temp 100 F 08/06/24 16:00 Pulse 63 08/06/24 16:00 Resp 19 08/06/24 16:00 BP 143/79 H 08/06/24 16:00 Pulse Ox 94 08/06/24 16:00 O2 Del Method Room Air 08/06/24 16:00 BMI result Body Mass Index 31.9 Neuro: Other: He is alert and oriented with normal intellectual functions. His speech is very slightly thick. Is there is no nystagmus. Visual johnson are full. There is no drift of the upper extremities. His strength is normal in all 4 extremities. He has slight dysmetria and past pointing on [id number] test on the right but not and [id number] test. Gait was not tested. Results Labs 08/06/24 07:07 08/06/24 07:07 Labs: Short CBC 08/06/24 Range/Units 07:07 WBC 9.4 (4.8-10.8) X10*3/uL Hgb 14.7 (14.0-18.0) g/dl Hct 40.8 L (42.0-52.0) % Plt Count 207 (160-400) X10*3/uL BMP 08/06/24 07:07 Sodium 142 Potassium 3.5 Chloride 111 H Carbon Dioxide 22 BUN 15 Creatinine 0.82 Calcium 9.5 Liver Function 08/06/24 Range/Units 07:07 Total Bilirubin 0.6 (0.0-1.0) mg/dL Direct Bilirubin 0.2 (0.0-0.5) mg/dL AST 21 (5-37) U/L ALT 28 (0-40) U/L Alkaline Phosphatase 57 (39-117) U/L Albumin 4.1 (3.5-5.0) g/dL Assessment and Plan (1) Acute ataxia: Status: Acute Possible right cerebellar infarct.Status post TNK The recommendation: MRI of the brain. Aspirin 81 mg a day. Continue atorvastatin and control of blood pressure and sugar. PT and OT for gait and balance evaluation Procedures Date of Service Date of Service: 08/06/24
[2024-08-06 18:26] LABS: Glucose, Whole Blood 205 mg/dL (60-115)
[2024-08-06] MEDS: Atorvastatin Calcium 20 MG TABLET PO (21:24)
--- OUTSIDE RECORDS SUMMARY | 2024-08-06 22:40 | XMS_ITS | Data Portability ---
Author Organization [facility] Address [address] [place] [address] Care Team Providers Care Wood Grinder Name Role Phone YVONNE LOUIS Primary Care Provider [phone] Assessment No assessment recorded. Plan of Treatment Reminders Order Date Submit Date Provider Last Modified By Organization Details Last Modified Time Details Appointments None recorded. Lab None recorded. Referral None recorded. Procedures None recorded. Surgeries None recorded. Imaging None recorded. Medication Orders cephalexin 500 mg capsule 2022 023 [id number], [address], [place], [phone], 19:51:03 Patient TargetsNo targets recorded. Patient InstructionsNo instructions recorded. Reason for Referral None Reported. Problems Name Problem SNOMED Code Status Onset Date Resolution Date Notes Provider Name and Address Organization Details Recorded Time Hypertensive disorder 43752647 Active [facility] Mejia [facility] 19:34:47 Hypercholestero lemia 69397747 Active [facility] Me[facility]ia [facility] 19:34:56 Problem Notes None recorded. Medical Equipment None Reported. Allergies No known drug allergies Medications Name Sig Start Date Stop Date Status Note LastModified by Organization Details LastModified Time amoxicillin 500 mg capsule TK FOUR CS PO 1 HOUR B DAPP AND THEN 1 CAPSULE THREE TIMES DAILY FOR 1 WEEK 04/19 completed Not Available Not Available Not Available atorvastati n 80 mg tablet TAKE 1 TABLET BY MOUTH DAILY active Not Available Not Available No t Available meloxicam 15 mg tablet TAKE 1 TABLET BY MOUTH DAILY active Not Available Not Available No t Available cephalexin 500 mg capsule TAKE 1 CAPSULE BY MOUTH THREE TIMES DAILY FOR 7 DAYS active Not Available Not Available No t Available erythromyci n 5 mg/gram (0.5 %) eye ointment APPLY 1/2 INCH IN RIGHT EYE FOUR TIMES DAILY FOR 7 DAYS 04/19 completed Not Available Not Available Not Available lisinopril 30 mg tablet TAKE 1 TABLET BY MOUTH DAILY active Not Available Not Available No t Available metoprolol succinate ER 25 mg tablet,exte nded release 24 hr TAKE 1 TABLET BY MOUTH DAILY active Not Available Not Available No t Available ibuprofen 600 mg tablet TAKE 1 TABLET BY MOUTH 1 HOUR BEFORE DENTAL APPOINTME NT AND 1 TABLET EVERY 6 HOURS FOR PAIN 04/19 completed Not Available Not Available Not Available nicotine (polacrilex ) 2 mg buccal lozenge DISSOLVE 1 LOZENGE IN MOUTH EVERY 8 HOURS NEEDED FOR NICOTINE CRAVINGS 04/19 completed Not Available Not Available Not Available chlorhexidi ne gluconate 0.12 % mouthwash 04/19 completed Not Available Not Available Not Available Vitals Date Recorded Body height Body mass index (BMI) Body weight Respiratory rate Oxygen saturation Oxygen saturation in Arterial blood by Pulse oximetry Heart rate Body temperature Systolic blood pressure Diastolic blood pressure Provider Name and Address Organization Details Last Updated DateTime 175.26 cm 36.9 kg/m2 932248. 09 g 18 /min 96 % 96 % 90 /min 98.2 [degF] 146 mm[Hg] 91 mm[Hg] MIMI HIGGINS RA PA - [facility] 19:36:56 Social History Question Answer Notes LastModified by Organizat ion Details LastModified Time Tobacco Smoking Status Current Every Day Smoker MIMI galicia, PA - [facility] 04/19/2023 19:35:20 What Is Your Level Of Alcohol Consumption? None Information not available 04/19/2023 How Much Tobacco Do You Smoke? 0.5 PPD Information not available 04/19/2023 Do You Use Any Illicit Or Recreational Drugs? No Information not available 04/19/2023 Have You Recently Traveled Abroad? No Information not available 04/19/2023 Sex: Unknown Functional Status None recorded. Mental Status None recorded. Family History Relationship Description Onset Age of this Age Resolved Age Notes LastModified by Organization Details LastModified Time Unspecified Relation Malignant neoplastic disease Not available 19:35:06 Medical History No medical history recorded. Immunizations Vaccine Type Date Status Note Provider Nam e and Address Organization Details Recorded Time Influenza, split virus, quadrivalent, preservative 8 completed MIMI ROSALES-ROBERTS null, PA - [facility] 04/19/2023 19:33:43 Influenza, split virus, quadrivalent, preservative 4 completed MIMI ROSALES-ROBERTS null, PA - [facility] 04/19/2023 19:33:43 Influenza, split virus, quadrivalent, preservative 7 completed MIMI ROSALES-ROBERTS null, PA - [facility] 04/19/2023 19:33:43 Influenza, MDCK, quadrivalent, PF 2 completed MIMI ROSALES-ROBERTS null, PA - [facility] 04/19/2023 19:33:43 Influenza, recombinant, quadrivalent, PF 0 completed MIMI ROSALES-ROBERTS null, PA - [facility] 04/19/2023 19:33:43 COVID-19 vaccine, vector-nr, rS-Ad26, PF, 0.5 mL 1 completed MIMI ROSALES-ROBERTS null, PA - [facility] 04/19/2023 19:33:43 pneumococcal polysaccharide PPV23 6 completed MIMI ROSALES-ROBERTS null, PA - [facility] 04/19/2023 19:33:43 Influenza, split virus, trivalent, PF 6 completed MIMI ROSALES-ROBERTS null, PA - [facility] 04/19/2023 19:33:43 Influenza, split virus, quadrivalent, PF 8 completed MIMI ROSALES-ROBERTS null, PA - [facility] 04/19/2023 19:33:43 Influenza, split virus, quadrivalent, PF 9 completed MIMI ROSALES-ROBERTS null, PA - [facility] 04/19/2023 19:33:43 Past Encounters Encounter ID Performer Location Encounter Start Date Encounter Closed Date Diagnosis/Indication Diagnosis SNOMED-CT Code Diagnosis ICD10 Code [id number] [place] [address] 05/19/2019 19:05:47 05/19/2019 19:39:08 [id number] Linda Garcia [place] [address] [address] 04/19/2023 19:18:36 04/19/2023 19:53:02 Cellulitis of right lower limb [id number] L03.115 Health Concerns Section Related Observation LastModified by Organization Detai ls LastModified Time None Recorded Concern Status LastModified by Organization Details LastModified Time None Recorded Advance Directives Directive None Recorded Payers Encounter Date Sequence Insurance Name Policy Number Policy Grimes Covered Member ID Grimes Member ID Guarantor Name 05/19/2019 1 [facility] [id number] Onofre Holbrook [id number] Onofre Holbrook 04/19/[address] [place] [address] [id number] Onofre Holbrook [id number] Onofre Holbrook Notes Date Note Type Note Provider Name and Address Organization Details Recorded Time 3 text/html ToesReported bypatient.source of patient informationInformation obtained from patient Location:right Quality:dull; superficial Severity:moderate Duration:days Timing:acute Context:atraumatic Aggravating Factors:walking Associated Symptoms:no weakness; no numbness; no tingling Linda Garcia NP [address] [place], [address], PA - [facility] 04/21/2023 17:33:30
[2024-08-06 23:19] LABS: Glucose, Whole Blood 105 mg/dL (60-115)
[2024-08-07] VITALS (16 sets, daily range): BP systolic 120–170; BP diastolic 59–97; PULSE 55–72; RESP 12–20; TEMP 36.5–36.7; O2SAT 91–98
[2024-08-07 04:34] LABS: Basophils Absolute Auto 0.1 X10*3/uL (0.0-0.2); Basophils Percent Auto 0.6 % (0-2); Eosinophils Absolute Auto 0.2 X10*3/uL (0.0-0.4); Eosinophils Percent Auto 2.3 % (0-4); Hematocrit 37.8 % (42.0-52.0); Hemoglobin 13.7 g/dl (14.0-18.0); Imm Gran Abs Auto 0.02 X10*3/uL (0.00-0.03); Imm Gran Pct Auto 0.2 % (0.0-0.4); Lymphocytes Percent Auto 28.6 % (20-40); MANUAL DIFF FLAG NO; Mean Corpuscular HGB Conc 36.2 g/dl (31.0-36.0); Mean Corpuscular Hemoglobin 31.5 pg (27.0-33.0); Mean Corpuscular Volume 86.9 fL (80.0-98.0); Mean Platelet Volume 9.3 fL (9.4-12.4); Monocytes Absolute Auto 0.9 X10*3/uL (0.1-1.2); Monocytes Percent Auto 8.3 % (2-11); Neutrophils Absolute Auto 6.4 x10*3/uL (2.0-8.3); Platelet Count 200 X10*3/uL (160-400); Red Blood Count 4.35 X10*6/uL (4.60-5.80); Red Cell Distribution Width 12.4 % (11.0-16.0); White Blood Count 10.6 X10*3/uL (4.8-10.8)
[2024-08-07 04:49] LABS: Alanine Aminotransferase 22 U/L (0-40); Albumin Level 3.6 g/dL (3.5-5.0); Alkaline Phosphatase 52 U/L (39-117); Anion Gap 13 (12-20); Aspartate Amino Transferase 17 U/L (5-37); Bilirubin Total 0.4 mg/dL (0.0-1.0); Blood Urea Nitrogen 13 mg/dL (9-16); Calcium 8.7 mg/dL (8.4-10.2); Carbon Dioxide 21 mmol/L (22-29); Chloride 113 mmol/L (96-108); Creatinine Clr Calc Pharmacy 146.2; Estimated Glomerular Filt Rate > 60; Glucose Random 107 mg/dL (60-115); Potassium 3.8 mmol/L (3.3-5.1); Sodium 143 mmol/L (135-145); Total Protein 5.9 g/dL (6.5-8.0)
[2024-08-07] MEDS: Lactated Ringers 1,000 ML 100 ML IVCONT (05:04)
[2024-08-07] MEDS: Omeprazole 40 MG CAPSULE.DR PO (05:05)
--- NOTE | 2024-08-07 07:00 | CA_ITS ---
Transthoracic Echocardiogram Patient (Last, First, Middle): Onofre Holbrook K Gender: Male Date of : 1970 Age: 54 Procedure Date: 08/07/2024 Procedure Type: Transthoracic Echocardiogram Location: ICU Height: 180.34 cm Weight: 103.42 kg BSA: 2.23 m2 Heart Rate: 57 bpm BP: 134 / 77 mmHg Curtain Stitcher: SB Referring MD: Jatinder POTTER [employer] Drops Machine Operator: Enio Blanco MD Symptoms: stroke Study Quality: Adequate ECG Rhythm: Bradycardia Conclusions: - 1. PFO present on saline contrast study at rest 2. Normal LV ejection fraction 55-60% 3. Mild aortic regurgitation 4. Mildly dilated ascending aorta at 4.1 cm 5. Normal RV systolic pressure 6. No gross pericardial effusion Findings Left Ventricle Normal left ventricular size, thickness, and systolic function. The visually estimated ejection fraction is between 55-60%. Spectral Doppler is indicative of a normal filling pattern. Wall Motion Rest Echo Findings The basal inferior segment is akinetic. All other scored wall segments showed normal motion. Right Ventricle Normal right ventricular cavity size and systolic function. Atria The left atrium is mildly dilated. Contrast study for right to left shunting is moderately positive. Patent foramen ovale detected using by contrast. The right atrium is normal in size. Aortic Valve Normal aortic valve structure and function. There is no aortic valve stenosis. There is mild aortic valve regurgitation. Mitral Valve Normal mitral valve structure and function. There is trace mitral valve regurgitation. There is no mitral valve stenosis. Pulmonic Valve The pulmonic valve is likely normal. There is trace pulmonic valve regurgitation. Tricuspid Valve Normal tricuspid valve structure. There is trace tricuspid valve regurgitation. The right ventricular systolic pressure is normal. The right ventricular systolic pressure is 25 mmHg. Normal right atrial pressure. There is no evidence of pulmonary hypertension. Great Vessels The pulmonary artery was not well visualized. There is mild dilatation of the ascending aorta measuring 4.10 cm. Venous The inferior vena cava is normal in size and collapses greater than 50% with inspiration. Pericardium/Pleural There is no evidence of pericardial effusion. Prior Study Comparison no prior study in the last 5 years for comparison. findings discussed with Recommendations, Care & Conclusions Recommend a ROSAS. Measurements 2D Linear Measurements IVSd: 0.63 0.6-0.9/0.6-1.0 cm LVIDd: 5.62 3.9-5.3/4.2-5.9 cm LVIDd Index: 2.52 2.4-3.2/2.2-3.1 cm/m2 LVIDs: 3.97 2.0-3.6 cm LVPWd: 0.69 0.7-1.1 cm LA Diam: 4.20 2.7-3.8/3.0-4.0 cm LAIDs Index: 1.88 1.5-2.3 cm/m2 LV Mass: 162.12 67-162/88-224 g LV Mass Index: 72.70 43-95/49-115 g/m2 LVOT Diam: 2.40 3.0+(-)1.3 cm 2D Systolic Function EF 4C: 59.10 >55% EF 2C: 53.40 >55% EF BiP: 55.80 >55% Mitral Valve MV Pk E: 0.84 MV PK A: 0.84 MV Decel Time: 217.00 E/A: 1.00 E'Lateral: 9.25 E'Medial: 7.72 E/E' Med: 10.90 E/E' Lat: 9.10 PHT: 64.00 MVA PHT: 3.44 Decel Cooke: 3.89 Aortic Valve AoV Pk Ed: 1.52 AoV Pk Grad: 9.00 SAILAJA: 3.24 AI Pk Ed: 4.10 AI Cooke: 1.37 LVOT LVOT Pk Ed: 0.96 LVOT Mn Ed: 0.63 LVOT VTI: 0.21 LVOT Pk Grad: 4.00 LVOT Mn Grad: 2.00 LVOT Diam: 2.40 LVOT Area: 4.52 Diastolic Function MV Pk E: 0.84 MV Pk A: 0.84 E/A: 1.00 E'Medial: 7.72 E/E' Med: 10.90 E' Laterial: 9.25 E/E' Lat: 9.10 Right Ventricle TAPSE (mm): 30.00 TVS' Ed: 12.60 Tricuspid Valve TR Pk Ed: 1.61 TR Pk Grad: 10.00 RA Press: 15.00 RVSP: 25.00 Great Vessels Aorta Sinus of Valsalva: 3.50 2.0-3.5 cm Ao Asc: 4.10 2.1-3.4 cm Pulmonary Valve PV Pk Ed: 0.98 Peak PV Grad: 4.00 W[place] Pk Ed: 1.40 Updated in Other Vendor System with Status of Final Enio Blanco MD electronically signed on 08/07/2024 11:43:22 AM with status of Final
[2024-08-07 07:50] LABS: Glucose, Whole Blood 122 mg/dL (60-115)
--- NOTE | 2024-08-07 08:57 | P.HPCC_ITS ---
History of Present Illness Date of Service: 08/06/24 Attending physician on admission: Luis Erazo Chief Complaint: Ataxia 54-year-old gentleman with past medical history of hypertension, hyperlipidemia, diabetes mellitus presented to the ED after sudden onset ataxia and dizziness that began on the morning of 08/06/2024 when he woke up and took his dog for the walk. When the patient went to sleep the previous night he was perfectly normal, this ataxia was sudden in onset. CT of the brain in the ED was normal, patient was given TNK admitted to ICU following TNK administration for close monitoring Review of Systems 2 Constitutional: Constitutional: Denies anorexia and Denies chills Eyes: Eyes: Denies exophthalmos, Denies change in vision, Denies decreased night vision and Denies diplopia ENT: Reports Normal hearing present and Denies bleeding gums Cardiovascular: Cardiovascular: Denies Abdominal Cramping after Meds, Denies Abdominal Distension, Denies chest pain and Denies chest pain at rest Respiratory: Respiratory: Denies change in phlegm color, Denies chest congestion and Denies cough Gastrointestinal: Gastrointestinal: Denies abdominal pain, Denies belching and Denies melena Genitourinary: Genitourinary: Denies hematospermia, Denies change in libido and Denies hematuria Musculoskeletal: Musculoskeletal: Reports abnormal gait, Reports back pain and Denies myalgias Integumentary/Breasts: Skin/Breast: Denies bleeding lesions and Denies breast swelling Neurologic: Reports Normal hearing present, Denies Neuro-related abnormal movements, Reports Abnormal speech present and Reports abnormal gait Psychiatric: Psychiatric: Denies change in libido Endocrine: Endocrine: Denies change in libido [facility] Past Medical History Medical History History of non-ST elevation myocardial infarction (NSTEMI) Essential hypertension Pure hypercholesterolemia Nicotine dependence, cigarettes, uncomplicated Tubular adenoma of colon (~2019) Obese Left hip pain Knee osteoarthritis Family History Family History Father Skin cancer Lung cancer Mother Chronic mental illness Lung cancer Brother Cerebral palsy Maternal Aunt Lung cancer Maternal Grandfather Lung cancer Family/Other Chronic mental illness Other Substance use disorder Surgical History Surgical History History of tooth extraction History of colonoscopy History of cardiac catheterization Social History Social History Household Members: Family Housing: House Do you presently have visiting nurse or other home services: No Alcohol intake: never Patient Tobacco Use Status: Current everyday Tobacco user Tobacco use type: Cigarette Cigarettes Per Day: 10 Years Smoked: (onset 14yo, 1/2-3/4ppd x 40years - 25pyh) Smoked in Last 30 Days: Yes e-Cigarette/Vaping Use: Never Used Patient Interested in Nicotine Replacement: No Second Hand Smoke Exposure: No Use of substances other than those prescribed or required for medical reasons: No Currently Displaying Signs/Symptoms of Drug Intoxication Withdrawal: No Have you been hit, kicked, punched, or otherwise hurt by someone within the past year? If so, by whom?: No Do you feel safe in your current relationship?: Yes Is there a partner from a previous relationship who is making you feel unsafe now?: No Are you made to feel afraid or neglected: No [employer] Healthcare Practices: jehovah's witness Advance Directives: No Advance Directives Information Provided: Yes Do you have a plan to hurt others: No Plan Recently lost weight without trying: No Nutrition Risks: On aspiration precautions service: No Current occupational status: employed Current occupational exposures/hazards: No Cognitive needs: No Hearing needs: No Vision needs: No Meds Allergies Allergy/AdvReac Type Severity Reaction Status Date / Time No Known Allergies Allergy Verified 08/06/24 06:39 [No Known Allergies*] Active Medications: Current Medications Atorvastatin Calcium (Atorvastatin Calcium 20 Mg Tablet) 20 mg PO BEDTIME [facility] Last Admin: 08/06/24 21:24 Dose: 20 mg Lactated Ringer's (Lr) 1,000 mls @ 100 mls/hr IVCONT .Q10H [facility] Last Admin: 08/07/24 05:04 Dose: 100 mls/hr Omeprazole (Omeprazole 40 Mg Capsule.Dr) 40 mg PO DAILY@0630 [facility] Last Admin: 08/07/24 05:05 Dose: 40 mg Physical Exam 2 Vital Signs: Vital Signs: Last Vital Signs Temp 98 F 08/07/24 08:00 Pulse 58 08/07/24 08:18 Resp 13 08/07/24 08:00 BP 154/80 H 08/07/24 08:18 Pulse Ox 95 08/07/24 08:18 O2 Del Method Room Air 08/07/24 08:00 BMI result Body Mass Index 31.9 General: acute distress, ill appearing and tired appearing Nutritional Appearance: well nourished and overweight Eyes: appearance normal, both eyes and all related structures; Alignment and Position: alignment normal and position normal Neck: No lymphadenopathy, no thyromegaly Resp: bilateral air entry equal, occasional added sounds present Cardio: Regular rate, regular rhythm; Heart sounds: S1 normal heart sound present and S2 normal heart sound present GI: soft, nontender, no guarding, no hepatosplenomegaly : bladder normal to inspection, bladder normal to palpation, no renal angle tenderness Skin: no rashes or lesions noted and elasticity normal Neuro: Power in all the 4 extremities normal, coordination in the upper and lower extremities normal, sensation normal, gait ataxia present Neuro: Cranial nerves: Yes Normal hearing present Speech: Abnormal speech present Results Labs 08/07/24 04:26 08/07/24 04:26 Labs: Laboratory Results - last 24 hr 08/06/24 08/06/24 08/07/24 18:22 21:22 04:26 MCV 86.9 MCH 31.5 MCHC 36.2 H RDW 12.4 Plt Count 200 MPV 9.3 L Immature Gran % (Auto) 0.2 Neut % (Auto) 60.0 Lymph % (Auto) 28.6 Sharkey % (Auto) 8.3 Eos % (Auto) 2.3 Baso % (Auto) 0.6 Lymph # (Auto) 3.0 Sharkey # (Auto) 0.9 Eos # (Auto) 0.2 Baso # (Auto) 0.1 Abs Immat Gran (auto) 0.02 Absolute Neuts (auto) 6.4 Absolute Nucleated RBC 0.000 Nucleated RBC % (auto) 0.0 Anion Gap 13 Estim Creat Clear Calc 146.2 Estimated GFR > 60 POC Glucose 205 H 105 Random Glucose 107 Calcium 8.7 D Total Bilirubin 0.4 AST 17 ALT 22 Alkaline Phosphatase 52 Total Protein 5.9 L Albumin 3.6 08/07/24 07:45 MCV MCH MCHC RDW Plt Count MPV Immature Gran % (Auto) Neut % (Auto) Lymph % (Auto) Sharkey % (Auto) Eos % (Auto) Baso % (Auto) Lymph # (Auto) Sharkey # (Auto) Eos # (Auto) Baso # (Auto) Abs Immat Gran (auto) Absolute Neuts (auto) Absolute Nucleated RBC Nucleated RBC % (auto) Anion Gap Estim Creat Clear Calc Estimated GFR POC Glucose 122 H Random Glucose Calcium Total Bilirubin AST ALT Alkaline Phosphatase Total Protein Albumin Imaging Radiologist's Impressions: Impressions Head/Neck CTA 08/06/24 06:38 IMPRESSION: 1. Unchanged Normal CT scan of the brain. 2. No intracranial hemorrhage or skull fracture is seen. 3. No evidence of space occupying or enhancing intracranial mass lesion could be found. 4. The current plain CT scan of the brain shows no diagnostic evidence of acute cerebral infarction. EXAMINATION: CT angiogram of brain. COMPARISON: None available. FINDINGS: There is normal visualization of bilateral anterior, middle and posterior cerebral arteries, internal carotid arteries, basilar artery and terminal portions of bilateral vertebral arteries. Anterior communicating artery is normal. Bilateral posterior communicating arteries are normal. Bilateral internal carotid siphons are smoothly patent. Timing of the bolus allows assessment of the major dural venous sinuses. The major cerebral venous sinuses show normal contrast filling. IMPRESSION: 1. Normal CT angiogram of the brain. 2. No focal cerebral arterial lesion or significant arterial stenosis is seen. EXAMINATION: CT angiogram of neck. COMPARISON: None available. STENOSIS MEASUREMENT: Degree of stenosis was measured and calculated based on NASCET criteria. Carotid stenosis reference using NASCET criteria: % stenosis = (1 - narrowest ICA diameter/diameter of distal cervical ICA) x 100. Mild - < 50% stenosis. Moderate - 50-69% stenosis. Severe - 70-94% stenosis. Near occlusion - 95-99% stenosis. Occluded - 100% stenosis. FINDINGS: RIGHT SIDE: Right internal carotid artery: Smoothly patent. Right external carotid artery: Smoothly patent. Right common carotid artery: Smoothly patent. Right vertebral artery: Smoothly patent. LEFT SIDE: Left internal carotid artery: Smoothly patent. Left external carotid artery: Smoothly patent. Left common carotid artery: Smoothly patent. Left vertebral artery: Smoothly patent. At the superior mediastinum, the visualized right innominate artery, bilateral subclavian arteries and common carotid arteries are smoothly patent starting from the origin at the aortic arch. There is a bovine arch with the right innominate artery and left common carotid artery sharing a common trunk from the aortic arch. IMPRESSION: 1. Normal CT angiogram of the neck. No evidence of significant carotid stenosis. 2. Patent bilateral vertebral arteries of similar sizes. This critical result was reported through enroute controller to Dr.Tor Mcfadden on 08/06/2024 at 1051 hours EST and it was ascertained that the content and urgency of this report was understood at the time of direct communication. Electronically signed by: Corona Vo MD 08/06/2024 10:56 AM EST Assessment and Plan (1) Acute ataxia: Status: Acute (2) Diabetes mellitus: Qualifiers: Diabetes mellitus type: type 2 Diabetes mellitus snf insulin use: without net solutions architect use Diabetes mellitus complication status: with hyperglycemia Qualified Code(s): E11.65 - Type 2 diabetes mellitus with hyperglycemia Status: Acute (3) Essential hypertension: Status: Acute (4) Nicotine dependence, cigarettes, uncomplicated: Status: Acute Plan Acute ataxia: Possibly secondary to a cerebrovascular accident, CT and CTA upon presentation both are normal. Patient is planned to get a MRI of the brain today. TTE showed PFO, if the MRI of the brain shows any embolic phenomenon patient needs further workup; irrespective of the results patient still needs to see outpatient Cardiology for follow-up ROSAS and possible closure in the future. Started on aspirin and atorvastatin Hypertension: We will restart his home metoprolol and lisinopril Chronic smoker: Advised to quit smoking Prophylaxis: SCD
[2024-08-07] MEDS: Aspirin 81 MG TAB.CHEW PO (10:29)
[2024-08-07] MEDS: Atorvastatin Calcium 40 MG TABLET PO ×2 (10:29→20:33)
[2024-08-07 11:47] LABS: Glucose, Whole Blood 128 mg/dL (60-115)
[2024-08-07] MEDS: lisinopriL 10 MG TABLET 30 MG PO (13:45)
[2024-08-07] MEDS: Metoprolol Succinate ER 25 MG TAB.ER.24H PO (13:45)
[2024-08-07 16:33] LABS: Glucose, Whole Blood 99 mg/dL (60-115)
--- NOTE | 2024-08-07 16:58 | PM.EVENT ---
Event Note Date of Service: 08/07/24 Event Note: This is a 54 year old male with HTn, HLD, T2DM who presented to the ED on August 06 with acute onset of dizziness and difficulty ambulating concerning for posterior circulation stroke. He received thrombolytics and was admitted to the ICU for close neurological monitoring with MRI confirming acute cerebellar stroke. acute cerebellar stroke s/p TNK echo with PFO - cardiology consult started on asa, statin LDL 112 PT/OT - rec outpatient services upon discharge HTN metoprolol, lisionopril Tobacco use disorder Smoking cessation advised Time Spent With Patient Time: Total time managing care of this patient today ____ minutes.
[2024-08-07 21:02] LABS: Glucose, Whole Blood 118 mg/dL (60-115)
[2024-08-08 03:16] VITALS: BP 156/74; PULSE 58; RESP 20; TEMP 36.9; O2SAT 94
[2024-08-08 03:20] VITALS: BMI 32.2
[2024-08-08 03:56] VITALS: BMI 32.2
[2024-08-08] MEDS: Omeprazole 40 MG CAPSULE.DR PO (05:30)
[2024-08-08 07:01] LABS: Hematocrit 40.4 % (42.0-52.0); Hemoglobin 14.2 g/dl (14.0-18.0); Mean Corpuscular HGB Conc 35.1 g/dl (31.0-36.0); Mean Corpuscular Hemoglobin 31.3 pg (27.0-33.0); Mean Corpuscular Volume 89.2 fL (80.0-98.0); Mean Platelet Volume 9.9 fL (9.4-12.4); Platelet Count 200 X10*3/uL (160-400); Red Blood Count 4.53 X10*6/uL (4.60-5.80); Red Cell Distribution Width 12.6 % (11.0-16.0); White Blood Count 9.3 X10*3/uL (4.8-10.8)
[2024-08-08 07:17] VITALS: BP 140/85; PULSE 62; RESP 17; TEMP 36.1; O2SAT 94
[2024-08-08 07:57] LABS: Glucose, Whole Blood 116 mg/dL (60-115)
[2024-08-08 08:10] VITALS: BP 140/85; PULSE 62; O2SAT 94
[2024-08-08] MEDS: Metoprolol Succinate ER 25 MG TAB.ER.24H PO (09:29)
[2024-08-08] MEDS: lisinopriL 10 MG TABLET 30 MG PO (09:29)
[2024-08-08] MEDS: Aspirin 81 MG TAB.CHEW PO (09:29)
--- NOTE | 2024-08-08 09:29 | MHC.CM.PN ---
EMR REVIEWED, PT ADMITTED W/STROKE AND S/P TNK, CM MET W/PT WHO REPORTS HE LIVES W/ AND 2 SONS, PT IS FULLY INDEP W/ALL CARE, PT HAS GLUCOMETER HOWEVER IS NOT ON DIABETIC MEDICATION D/T SIDE EFFECTS AND HAS MODIFIED HIS DIET AND LOST 30LBS, P.T./O.T. RECOMMENDING OUTPT SERVICES AND PT AWARE HE WILL NEED TO GO THROUGH PCP FOR REFERRAL. PT'S GOAL FOR DC IS HOME. PCP ON FILE VERIFIED AND PT WOULD LIKE TO COMPLETE A HCP AFTER BREAKFAST., CM TO REVISIT.
[2024-08-08 11:12] VITALS: BP 146/86; PULSE 61; RESP 17; TEMP 36.1; O2SAT 96
[2024-08-08 11:38] LABS: Glucose, Whole Blood 108 mg/dL (60-115)
--- NOTE | 2024-08-08 11:39 | MHC.SL.SOA ---
Referring Provider: Donis Mcfadden Reason for Referral: Pt failed RN swallow screen Date of Plan of Treatment:08/06/24 Onset of Symptoms/Illness:08/06/24 Date Treatment Started:08/06/24 Medical Diagnosis:Pt admitted d/t question of CVA, was given TNK upon admit. Pt with +nausea and vomiting at time of admission. Primary Speech Language Diagnosis:R13.19 Other Dysphagia Secondary Speech Language Diagnosis:R47.1 Dysarthria Reason for Visit:81815 Individual Treatment Subjective:Patient was awake and alert, sitting in a chair at a table. He was A&O x4 and pleasantly engaging in conversation with the clinician. Objective: Patient completed the [place] Naming Test Short Form (BNT) and selected subtests from the [place] Diagnostic Aphasia Examination (BDAE). Assessment:Patient was able to identify target words from an array of 4 in 14/14 trials. He followed simple and complex verbal commands without error. Patient appropriately responded to yes/no questions and correctly answered comprehension questions about material presented in a paragraph. Patient's automatic speech is intact. He recited says of the week and counted to 21. No errors made with word and sentence repetition. No errors noted with responsive naming and with confrontational naming on the BNT (correctly named 14/15 items, identified sphinx from choice of 4). Patient formulated complete sentences with appropriate use of semantics and syntax. Patient denied experiencing any changes to his speech, language, or cognition. Notes: Patient is admitted w/ acute cerebellar stroke s/p TNK. He was seen by AIRPORT GUIDE yesterday for BDE and recommended regular solid textures and thin liquids. Patient also denies any difficulties with his communication. He was seen for speech-language screening this morning and no difficulties were identified. Further ST intervention is not indicated at this time. Seen by: Graduate/Clinical Fellow: No Supervisory Statement: f_Reg Query Last Value , MHC.AU.SIGNATUR Speech Language Pathologist: Kendra Lee M.A., [facility]
--- NOTE | 2024-08-08 12:36 | P.CONCA_ITS ---
History of Present Illness History of Present Illness Date of Service: 08/08/24 Requesting physician: Holly Cordoba Consult reason: other (CVA, PFO) Chief complaint: Stroke Narrative: I was consulted to see Onofre in cardiology consultation today as he presented with symptoms suggestive of stroke and subsequently echo was performed which showed a patent foramen ovale. Cardiology consultation for further management of his stroke. Patient a 54-year-old male who has prior history of smoking and diabetes. Had a NSTEMI in 2015 and says subsequently had a cardiac catheterization which had shown apparently normal coronary disease. He had not require any intervention. Since then he has been doing well. He says his diabetes was only diagnose recently and he has made intense lifestyle modification with much improvement in his hemoglobin A1c. He came in with acute onset symptoms of dizziness dysarthria and disequilibrium. He was suspected to have a stroke and received TNK. His symptoms have mostly resolved but he still continues to have issues with balance as per him. He does not notice any speech disturbances in the present at bedside also does not notice any significant speech disturbances. No focal motor or sensory deficits. Initial CT was negative for any acute stroke. Subsequent MRI is consistent with acute cerebellar CVA. As a workup he underwent echocardiogram which showed presence of PFO. Patient denies any prior stroke. No family history of hypercoagulable state. He has never had DVT or VT himself. Review of Systems 2 Constitutional: Constitutional: Reports no additional constitutional complaints ENT: Reports system reviewed and no additional complaints, except as documented and Reports disequilibrium Cardiovascular: Cardiovascular: Reports no additional cardiovascular complaints Respiratory: Respiratory: Reports no additional respiratory complaints Genitourinary: Genitourinary: Reports no additional male genitourinary complaints Musculoskeletal: Musculoskeletal: Reports no additional musculoskeletal complaints Neurologic: Reports lack of coordination and Reports disequilibrium Psychiatric: Psychiatric: Reports no additional psychiatric complaints [facility] Past Medical History Medical History History of non-ST elevation myocardial infarction (NSTEMI) Essential hypertension Pure hypercholesterolemia Nicotine dependence, cigarettes, uncomplicated Tubular adenoma of colon (~2019) Obese Left hip pain Knee osteoarthritis Family History Family History Father Skin cancer Lung cancer Mother Chronic mental illness Lung cancer Brother Cerebral palsy Maternal Aunt Lung cancer Maternal Grandfather Lung cancer Family/Other Chronic mental illness Other Substance use disorder Surgical History Surgical History History of tooth extraction History of colonoscopy History of cardiac catheterization Social History Social History Household Members: Family Housing: House Do you presently have visiting nurse or other home services: No Alcohol intake: never Patient Tobacco Use Status: Current everyday Tobacco user Tobacco use type: Cigarette Cigarettes Per Day: 10 Years Smoked: (onset 14yo, 1/2-3/4ppd x 40years - 25pyh) Smoked in Last 30 Days: Yes e-Cigarette/Vaping Use: Never Used Patient Interested in Nicotine Replacement: No Second Hand Smoke Exposure: No Use of substances other than those prescribed or required for medical reasons: No Currently Displaying Signs/Symptoms of Drug Intoxication Withdrawal: No Have you been hit, kicked, punched, or otherwise hurt by someone within the past year? If so, by whom?: No Do you feel safe in your current relationship?: Yes Is there a partner from a previous relationship who is making you feel unsafe now?: No Are you made to feel afraid or neglected: No Mandaeism Healthcare Practices: quaker Advance Directives: No Advance Directives Information Provided: Yes Do you have a plan to hurt others: No Plan Recently lost weight without trying: No Nutrition Risks: On aspiration precautions service: No Current occupational status: employed Current occupational exposures/hazards: No Cognitive needs: No Hearing needs: No Vision needs: No Meds Allergies Allergy/AdvReac Type Severity Reaction Status Date / Time No Known Allergies Allergy Verified 08/06/24 06:39 [No Known Allergies*] Active Medications: Current Medications Aspirin (Aspirin 81 Mg Tab.Chew) 81 mg PO DAILY [facility] Last Admin: 08/08/24 09:29 Dose: 81 mg Atorvastatin Calcium (Atorvastatin Calcium 40 Mg Tablet) 40 mg PO BEDTIME [facility] Last Admin: 08/07/24 20:33 Dose: 40 mg Lisinopril (Lisinopril 10 Mg Tablet) 30 mg PO DAILY [facility]; Protocol Last Admin: 08/08/24 09:29 Dose: 30 mg Metoprolol Succinate (Metoprolol Succinate Er 25 Mg Tab.Er.24h) 25 mg PO DAILY [facility]; Protocol Last Admin: 08/08/24 09:29 Dose: 25 mg Omeprazole (Omeprazole 40 Mg Capsule.Dr) 40 mg PO DAILY@0630 [facility] Last Admin: 08/08/24 05:30 Dose: 40 mg Physical Exam 2 Vital Signs: Vital Signs: Last Vital Signs Temp 96.9 F 08/08/24 11:12 Pulse 61 08/08/24 11:12 Resp 17 08/08/24 11:12 BP 146/86 H 08/08/24 11:12 Pulse Ox 96 08/08/24 11:12 O2 Del Method Room Air 08/08/24 11:12 BMI result Body Mass Index 32.2 Const: General: cooperative, comfortable, no acute distress, alert and awake Nutritional Appearance: overweight Orientation/consciousness: patient oriented x3 Limitations: no limitations HEENT: Head: Yes normocephalic and Yes atraumatic Neck: Neck: Yes trachea midline, Yes supple and Yes no JVD Resp: Effort & Inspection: normal respiratory effort Auscultation: clear to auscultation bilaterally Cardio: Jugular venous distension: no JVD Palpation: normal PMI Rate: r egular rate Rhythm: regular rhythm Heart sounds: S1 normal heart sound present, S2 normal heart sound present, no click, no gallops, no murmurs and no rubs GI: Auscultation: normal bowel sounds Skin: General skin exam: no rashes or lesions noted Neuro: General: patient oriented x3, no focal motor deficits and other (Noticed mild dysarthria) Objective Labs and Meds 08/08/24 06:47 08/07/24 04:26 Lab results: Laboratory Results - last 24 hr 08/07/24 08/07/24 08/08/24 16:20 20:28 06:47 WBC 9.3 RBC 4.53 L Hgb 14.2 Hct 40.4 L MCV 89.2 MCH 31.3 MCHC 35.1 RDW 12.6 Plt Count 200 MPV 9.9 Absolute Nucleated RBC 0.000 Nucleated RBC % (auto) 0.0 POC Glucose 99 118 H 08/08/24 08/08/24 07:25 11:28 WBC RBC Hgb Hct MCV MCH MCHC RDW Plt Count MPV Absolute Nucleated RBC Nucleated RBC % (auto) POC Glucose 116 H 108 Imaging Radiologist's impression: Impressions Brain MRI 12/12/24 12:20 IMPRESSION: Acute infarct involving the right superior cerebellar vermis. No hemorrhagic transformation. Electronically signed by: Feroz Colon MD 08/07/2024 12:58 PM [facility] Assessment and Plan (1) Cerebellar stroke, acute: Status: Acute Acute cerebellar stroke in his middle-aged man with history of diabetes now which is diet controlled with multiple risk factors although CTA of head and neck showed no evidence of extracranial intracranial stenosis explaining his stroke. Less presence of PFO by echocardiogram which can potentially explain his stroke. We discussed about PFO and pathophysiology of stroke associated with PFO. Discussed about potential mechanism. He will need further workup including workup for thrombophilia as well as rule out atrial fibrillation as he has risk factors for the same. Will also need a ROSAS which can be done as an outpatient. For now given embolic nature of CVA I would prescribe Eliquis for further stroke reduction in the future till the workup is completed. He is advised complete smoking cessation. High-intensity statin therapy. Continue continue blood pressure control and diabetes management. I had spent greater than 40 minutes in explaining him the entire situation management plan. He understands and agrees. Procedures Date of Service Date of Service: 08/08/24
--- NOTE | 2024-08-08 12:38 | P.DS_ITS ---
DS: Providers Provider Date of Service: 08/08/24 Date of admission: 08/06/24 08:30 Date of discharge: 08/08/24 Primary care physician: Erika Wren MD Consults: 08/06/24 15:45 Consult to Neurology Routine Consulting Provider: [facility] Reason for consultation: stroke 08/07/24 17:08 Consult to Cardiology Routine Consulting Provider: [facility] Reason for consultation: acute stroke, PFO Has provider been notified: No Attending physician on discharge: Juan Carlos Ruiz Discharging clinician: Holly Cordoba DS: Diagnosis Discharge Diagnosis (1) Acute ataxia: Status: Acute (2) Diabetes mellitus: Status: Acute (3) Essential hypertension: Status: Acute (4) Nicotine dependence, cigarettes, uncomplicated: Status: Acute DS: Summary Hospital Course Hospital Course: From H&P on the day of admission 54-year-old gentleman with past medical history of hypertension, hyperlipidemia, diabetes mellitus presented to the ED after sudden onset ataxia and dizziness that began on the morning of 08/06/2024 when he woke up and took his dog for the walk. When the patient went to sleep the previous night he was perfectly normal, this ataxia was sudden in onset. CT of the brain in the ED was normal, patient was given TNK admitted to ICU following TNK administration for close monitoring Acute cerebellar stroke Presented to the emergency department with acute onset of ataxia, received tenecteplase in the ED. CTA of the head and neck showed no evidence of significant carotid stenosis, patent bilateral vertebral arteries, no focal cerebral arterial lesion or significant arterial stenosis. Brain CT unremarkable. MRI revealed acute infarct involving the right superior cerebellar vermis. No hemorrhagic transformation. He was admitted to the ICU for close neurological monitoring. He was seen by Physical therapy, Occupational therapy, speech therapy. No acute rehab needed, physical therapy recommended outpatient physical therapy services to work on advanced balance activities. Speech language screening by speech therapy - no difficulties were identified. LDL was checked and was 112, started on Lipitor 40 mg daily, initially given aspirin 81 mg daily. Echocardiogram was obtained which showed PFO. Patient was seen by Cardiology who recommended inpatient hypercoagulable workup which was drawn and is pending at the time of discharge and also recommended starting anticoagulation with Eliquis. Cardiology also recommended Holter monitor which will be set up and placed after discharge. He should follow up with Cardiology as outpatient for workup regarding possible closure of PFO. Should follow up with PCP. Patient understands the plan and is in agreement. Blood thinner precautions were discussed and he understands. Time Attestation Discharge Coordination Time (in mins): 40 Quality: Safe Use of Opioids Does Pt have an Active Cancer Diagnosis on the Problem List?: No Quality: Stroke Does the patient have a stroke diagnosis?: Yes Reason for No Anti-thrombotic at DC: N/A - Med Ordered Reason for No Anticoagulant at DC: N/A - Med Ordered Reason Not Initiating IV-Tpa: N/A - Med Ordered (got on admission ) Reason for No Anti-thrombotic by Day Two: N/A - Med Ordered Reason for No Statin at DC: N/A - Med Ordered Physical Exam Vital Signs: Vital Signs: Last Vital Signs Temp 96.9 F 08/08/24 11:12 Pulse 61 08/08/24 11:12 Resp 17 08/08/24 11:12 BP 146/86 H 08/08/24 11:12 Pulse Ox 96 08/08/24 11:12 O2 Del Method Room Air 08/08/24 11:12 BMI result Body Mass Index 32.2 Const: General: cooperative, comfortable, no acute distress, alert and awake Nutritional Appearance: average body habitus Orientation/consciousness: mary ent oriented x3 Resp: Effort & Inspection: normal respiratory effort, able to speak in complete sentences, no respiratory distress and no use of accessory muscles Cardio: Rate: regular rate GI: Inspection: No distended Palpation (GI): Soft to palpation and nontender Neuro: Other: able to ambulate unassisted General: patient oriented x3 and moves all extremities DS: Data Data Completed and Pending Labs on day of discharge: Laboratory Results - last 24 hr 08/07/24 08/07/24 08/08/24 16:20 20:28 06:47 WBC 9.3 RBC 4.53 L Hgb 14.2 Hct 40.4 L MCV 89.2 MCH 31.3 MCHC 35.1 RDW 12.6 Plt Count 200 MPV 9.9 Absolute Nucleated RBC 0.000 Nucleated RBC % (auto) 0.0 POC Glucose 99 118 H 08/08/24 08/08/24 07:25 11:28 WBC RBC Hgb Hct MCV MCH MCHC RDW Plt Count MPV Absolute Nucleated RBC Nucleated RBC % (auto) POC Glucose 116 H 108 Discharge Plan Discharge Anticipated Discharge Date/Time: 08/08/24 13:40 Patient Disposition: Home, Self-Care Discharge Diagnosis: acute cerebellar stroke Referrals: Erika Barrett MD [Primary Care Provider] - 1 Week Enio Blanco MD [Physician] - 1 Week Discharge Medications: New atorvastatin 40 mg Tablet 40 mg PO BEDTIME Qty: 90 0RF Eliquis 5 mg tablet 5 mg PO BID 90 Days Qty: 180 0RF nicotine (polacrilex) [Nicorette] 2 mg lozenge 2 mg buccal Q6H PRN (Reason: nicotine cravings) Qty: 72 0RF Continued metoprolol succinate 25 mg tablet extended release 24 hr 25 mg PO DAILY 90 Days Qty: 90 3RF lisinopril 30 mg tablet 30 mg PO DAILY 90 Days Qty: 90 1RF cholecalciferol (vitamin D3) 25 mcg (1,000 unit) capsule 25 mcg PO DAILY 90 Days Qty: 90 1RF Discontinued meloxicam 15 mg tablet 15 mg PO DAILY 90 Days Qty: 90 3RF aspirin 81 mg tablet,delayed release (DR/EC) 81 mg PO DAILY 90 Days Qty: 90 1RF No Action (DME) blood-glucose meter [FreeStyle Lite Meter] Kit See Rx Instructions .Route Qty: 1 0RF Rx Instructions: As directed (DME) FreeStyle Lite Strips Strip See Rx Instructions .Route Qty: 50 6RF Rx Instructions: Use 1 test strip once a day (DME) lancets [FreeStyle Lancets] 28 gauge misc See Rx Instructions .Route Qty: 100 4RF Rx Instructions: Use 1 lancet once a day Discharge Orders: Discharge Order (Routine); Ordered 08/08/24 Ordered By: Holly Cordoba Activity on Discharge: As tolerated Stand Alone Forms: Patient Portal Discharge page, Work/School Release Print Language: British Care Plan Goals: see below Health Concerns: acute cerebellar stroke PFO Plan of Treatment: you have been started on a blood thinner to reduce the risk of recurrent stroke. do not take NSAIDs (motrin, ibuprofen, etc) while taking blood thinner stop taking aspirin whle on Eliquis Hypercoagulable workup pending at the time of discharge - will need follow up with PCP you have been started on cholesterol lowering medication Outpatient follow-up with Cardiology for further work up in regard to PFO - holter monitor etc smoking cessation recommended call to schedule follow up with PCP Assessment: see discharge summary
--- NOTE | 2024-08-08 14:02 | MHC.CM.PN ---
Addendum entered by Nickie Hassan RN 08/08/24 14:20: pt will follow up w/pcp for referral to oupt OT/PT, HCP completed pt named Marjorie Holbrook as his [facility] # on file verified and son Hugo Holbrook as his alternate, copy [facility] and placed in chart. Original Note: pt medically cleared for dc home self care w/new script for eliquis, pt given Eliquis $10 copay card for commercial plans, family for transport
[2024-08-08 14:25] LABS: INTERNATIONAL NORM RATIO 0.9 (0.9-1.1); Prothrombin Time 10.9 SEC (10.9-12.4)
[2024-08-08 14:27] LABS: Partial Thromboplastin Time 27.1 SEC (26.0-36.8)
[2024-08-11 19:53] LABS: Anti-Thrombin III Antigen 109 % normal (80-120)
[2024-08-11 23:32] LABS: Cardiolipin IgG Ab <2.0 GPL-U/mL; Cardiolipin IgM Ab 11.2 MPL-U/mL
[2024-08-12 22:03] LABS: PTT (LAC) Screen 26 sec (<=40)
[2024-08-12 22:23] LABS: Protein C Activity 145 % normal (70-180); Protein S Activity rflx Tot&Fr 77 % normal (70-150)
[2024-08-13 19:48] LABS: Prothrombin 20210A NEGATIVE
[2024-08-15 16:04] LABS: Factor V Leiden NEGATIVE
== END 2024-08-08 15:00 | disposition home or self-care (01) | DRG 45 ==
LOC: HO.ED 08:42 → HO.EDOVER 09:28 → HO.ICU 09:44 → HO.IMC 08-07 10:57
PROVIDERS: Emergency Medicine; Admitting Provider Internal Medicine Critical Care Medicine; Emergency Provider Emergency Medicine; PCP Internal Medicine; Visit Provider Physician Assistant Medical
DX: I63.9 Cerebral infarction, unspecified (principal); Q21.12 Patent foramen ovale; F17.210 Nicotine dependence, cigarettes, uncomplicated; E11.65 Type 2 diabetes mellitus with hyperglycemia; I10 Essential (primary) hypertension; E78.5 Hyperlipidemia, unspecified; R27.8 Other lack of coordination; Z71.6 Tobacco abuse counseling; R29.701 NIHSS score 1; R47.1 Dysarthria and anarthria; Z79.899 Other long term (current) drug therapy
CPT/HCPCS: 36415; 70450; 70496; 70498; 70551; 80048; 80053; 80061; 80076; 81240; 81241; 82947; 83036; 83690; 83735; 84484; 85025; 85027; 85301; 85302; 85303; 85306; 85597; 85598; 85610; 85613; 85730; 86147; 92507; 92610; 93005; 93306; 97116; 97162; 97165; 97535; 99285; J2405; J3101; J7120; Q9967

== ENCOUNTER → 2024-08-06 06:29 | Outpatient (BNV) | payer BC, SELFPAY | PROVIDERS: Admitting Provider Internal Medicine Critical Care Medicine; Emergency Provider Emergency Medicine; PCP Internal Medicine; Visit Provider Internal Medicine Cardiovascular Disease | DX: R42 Dizziness and giddiness (principal); R11.2 Nausea with vomiting, unspecified | CPT/HCPCS: 93010 ==

== ENCOUNTER 2024-08-06 08:30 | Outpatient (BNV) | payer BC, SELFPAY | END 2024-08-07 07:00 | PROVIDERS: Admitting Provider Internal Medicine Critical Care Medicine; Emergency Provider Emergency Medicine; PCP Internal Medicine; Visit Provider Internal Medicine Cardiovascular Disease | DX: Q21.12 Patent foramen ovale (principal); I35.1 Nonrheumatic aortic (valve) insufficiency | CPT/HCPCS: 93303; 93320; 93325 ==

== ENCOUNTER → 2024-08-06 08:30 | Outpatient (BNV) | payer BC, SELFPAY | PROVIDERS: Admitting Provider Internal Medicine Critical Care Medicine; Emergency Provider Emergency Medicine; PCP Internal Medicine; Visit Provider Physician Assistant Medical | DX: I10 Essential (primary) hypertension (principal); E11.65 Type 2 diabetes mellitus with hyperglycemia; R27.0 Ataxia, unspecified; F17.210 Nicotine dependence, cigarettes, uncomplicated | CPT/HCPCS: 99239; 99499 ==

== ENCOUNTER → 2024-08-06 08:30 | Outpatient (BNV) | payer BC, SELFPAY | PROVIDERS: Admitting Provider Internal Medicine Critical Care Medicine; Emergency Provider Emergency Medicine; PCP Internal Medicine; Visit Provider Internal Medicine Cardiovascular Disease | DX: I63.9 Cerebral infarction, unspecified (principal) | CPT/HCPCS: 99223 ==

== ENCOUNTER → 2024-08-06 08:30 | Outpatient (BNV) | payer BC, SELFPAY | PROVIDERS: Admitting Provider Internal Medicine Critical Care Medicine; Emergency Provider Emergency Medicine; PCP Internal Medicine; Visit Provider Internal Medicine Critical Care Medicine | DX: E11.65 Type 2 diabetes mellitus with hyperglycemia (principal); R27.0 Ataxia, unspecified; I10 Essential (primary) hypertension; F17.210 Nicotine dependence, cigarettes, uncomplicated | CPT/HCPCS: 99223 ==

== ENCOUNTER → 2024-08-06 08:30 | Outpatient (BNV) | payer BC, SELFPAY | PROVIDERS: Admitting Provider Internal Medicine Critical Care Medicine; Emergency Provider Emergency Medicine; PCP Internal Medicine; Visit Provider Psychiatry & Neurology Neurology | DX: R27.8 Other lack of coordination (principal) | CPT/HCPCS: 99222 ==

== ENCOUNTER → 2024-08-11 08:28 | Outpatient (REF) | payer BC, SELFPAY | LOC: HO.CARD 08:28 | PROVIDERS: PCP Internal Medicine; Visit Provider Nurse Practitioner Family | DX: I63.9 Cerebral infarction, unspecified (principal); R00.2 Palpitations | CPT/HCPCS: 93270 ==

== ENCOUNTER → 2024-08-11 08:40 | Outpatient (BNV) | payer BC, SELFPAY | PROVIDERS: PCP Internal Medicine; Visit Provider Internal Medicine | DX: I47.10 Supraventricular tachycardia, unspecified (principal) | CPT/HCPCS: 93272 ==

== ENCOUNTER 2024-08-11 13:33 | Outpatient (AMB) | payer BC, SELFPAY ==
--- NOTE | 2024-08-11 13:35 | A.OFFPC_ITS ---
Vital Signs 08/11/24 13:41 Height 5 ft 11 in Weight 226 lb BMI 31.5 BP 130/86 Blood Pressure Location Lt brachial Position Sitting Intake Visit Reasons: [facility] [place] 08/08 stroke Nursing Clinical Director Required: No Accompanied by: Self / Same As Patient Allergies No Known Allergies [No Known Allergies*] Allergy (Verified 08/11/24 13:58) Medication List - Last Reconciled 08/11/24 by Erika Wren MD apixaban (Eliquis) 5 mg PO BID 90 days atorvastatin 40 mg PO BEDTIME blood sugar diagnostic (FreeStyle Lite Strips) Use 1 test strip once a day blood-glucose meter (FreeStyle Lite Meter kit) As directed cholecalciferol (vitamin D3) 25 mcg PO DAILY 90 days lancets (FreeStyle Lancets) Use 1 lancet once a day lisinopril 30 mg PO DAILY 90 days metoprolol succinate ER 25 mg PO DAILY 90 days nicotine (polacrilex) (Nicorette) 2 mg buccal Q6H PRN Tobacco use date assessed: 02/20/24 Dental Screening Dental Screen Date: 08/11/24 Did you have a dental visit in the last 12 months?: No Did you have a dental problem in the last 6 months where you did not have access to dental care?: No Was dental information given to patient?: Patient has dentist HPI TCM TCM Information Date of Discharge 08/08/24 Discharged From [facility] Interactive Contact Date (Reference documentation from this date) 08/11/24 HPI Comments History of Present Illness Details The patient is a 54-year-old male presenting as hospital discharge follow up with acute cerebellar infarction and ataxia. He experienced a sudden onset of dizziness and ataxia while walking his dog on August 06, 2024. The patient describes the dizziness as severe, accompanied by liquid vomiting. Upon experiencing these symptoms, he took three baby aspirin and contacted his physician, who advised him to immediately visit the emergency room due to the possibility of a stroke. Upon presentation at the ER, an initial CT scan without contrast did not reveal significant changes. Had CTA of head and receive tenecteplase at ER. However, further investigation with MRI revealed acute infarction in the right superior cerebellar vermis, consistent with symptoms affecting coordination. The patient was admitted to ICU for 24-hour observation. His medical history includes essential hypertension, hyperlipidemia, and type 2 diabetes mellitus. He was recently weaned off metformin due to gastrointestinal side effects, and meloxicam was discontinued to avoid interaction risks with anticoagulation therapy initiated post-stroke. Medications currently include lisinopril and metoprolol. He also has asymptomatic patent foramen ovale, diagnosed via echocardiogram in the context of his recent stroke workup. [facility] Medical History History of non-ST elevation myocardial infarction (NSTEMI) Essential hypertension Pure hypercholesterolemia Nicotine dependence, cigarettes, uncomplicated Tubular adenoma of colon (~2020) Obese Left hip pain Knee osteoarthritis Surgical History History of tooth extraction History of colonoscopy History of cardiac catheterization Family History Father Skin cancer Lung cancer Mother Chronic mental illness Lung cancer Brother Cerebral palsy Maternal Aunt Lung cancer Maternal Grandfather Lung cancer Family/Other Chronic mental illness Other Substance use disorder Social History Household Members: Family Housing: House Do you presently have visiting nurse or other home services: No Alcohol intake: never Patient Tobacco Use Status: Current everyday Tobacco user Tobacco use type: Cigarette Cigarettes Per Day: 10 Years Smoked: (onset 14yo, 1/2-3/4ppd x 40years - 25pyh) e-Cigarette/Vaping Use: Never Used Second Hand Smoke Exposure: No service: No Current occupational status: employed Current occupational exposures/hazards: No Cognitive needs: No Hearing needs: No Vision needs: No Questionnaire Thrive Questionnaire Date Thrive assessed: 08/08/24 JAYDEN-7 AMB Questionnaire JAYDEN-7 Date JAYDEN - 7 assessed: 02/20/24 Source: Developed by Drs. Tae Clark, Hayley Joe, Emerson Robledo and colleagues, with an educational bruce from [employer]. Review of Systems Const All systems reviewed & are unremarkable except as noted in HPI and below ENT Reports dizziness and Reports disequilibrium Card Denies chest pain at rest, Denies chest pain with activity, Denies edema, Denies irregular heart rhythm, Denies claudication, Denies dyspnea, Denies dyspnea on exertion, Denies orthopnea, Denies paroxysmal nocturnal dyspnea and Denies slow heart rate Resp Denies cough, Denies dyspnea and Denies dyspnea on exertion GI Denies abdominal pain, Denies change in bowel habits, Denies excessive flatus, Denies nausea and Denies vomiting Denies urinary hesitancy, Denies urinary incontinence and Denies urinary urgency Musc Reports abnormal gait, Denies atrophy, Denies deformity and Denies limited range of motion Neuro Reports abnormal gait, Reports dizziness, Denies lack of coordination and Reports disequilibrium Physical exam (Primary Care) Vital Signs: Last Vital Signs BP 130/86 08/11/24 13:41 BMI result Body Mass Index 31.5 BMI Assessment/Plan discussion: High BMI High, discussed plan: lifestyle, weight reduction, dietary and physical activity Tobacco/Smoking Status: Tobacco use Status Tobacco use date assessed 02/20/24 08/11/24 13:50 Patient Tobacco Use Status Current everyday Tobacco 08/11/24 13:50 Tobacco use type Cigarette 08/11/24 13:50 e-Cigarette/Vaping Use Never Used 08/11/24 13:50 Thrive Assessment: Date of Thrive Assessment Date Thrive assessed 08/08/24 08/11/24 13:50 Resp Effort & Inspection: normal respiratory effort Auscultation: clear to auscultation bilaterally Cardio Jugular venous distension: no JVD Rate: regular rate Rhythm: regular rhythm Heart sounds: S1 normal heart sound present and S2 normal heart sound present Extrem General: Yes full ROM Coding Level of Care Code TCM Mod MDM <= 7 Days Diagnoses Cerebellar stroke, acute I63.9 PFO (patent foramen ovale) Q21.12 Type 2 diabetes mellitus with hyperglycemia, without long-term current use of insulin E11.65 Diabetes mellitus type: type 2 Diabetes mellitus change house attendant insulin use: without custodial use Diabetes mellitus complication status: with hyperglycemia Essential hypertension I10 Pure hypercholesterolemia E78.00 Time Spent (min) 30 Assessment & Plan Assessment & Plan (1) Cerebellar stroke, acute: Code(s): I63.9 - Cerebral infarction, unspecified Category: Medical (2) PFO (patent foramen ovale): Code(s): Q21.12 - Patent foramen ovale Category: Medical (3) Diabetes mellitus: Code(s): E11.9 - Type 2 diabetes mellitus without complications Category: Medical Qualifiers: Diabetes mellitus type: type 2 Diabetes mellitus custodial insulin use: without custodial use Diabetes mellitus complication status: with hyperglycemia Qualified Code(s): E11.65 - Type 2 diabetes mellitus with hyperglycemia (4) Essential hypertension: Code(s): I10 - Essential (primary) hypertension Category: Medical (5) Pure hypercholesterolemia: Code(s): E78.00 - Pure hypercholesterolemia, unspecified Category: Medical Plan - Continue lisinopril 30 mg and adjust atorvastatin to 80 mg daily to manage hyperlipidemia. - Maintain anticoagulation therapy with Eliquis to prevent further embolic events. - Referral to cardiology for evaluation of patent foramen ovale and potential intervention if necessary. - Referral to neurology for post-stroke evaluation and management. - Order physical therapy to address ataxia and improve coordination. - Await results from additional coagulation studies to rule out underlying hemostatic disorders. Patient was informed and verbally consented to the use of an ambient scribe for clinic note documentation during this visit. I discussed the likely diagnosis of acute cerebellar infarction due to embolic stroke, secondary to patent foramen ovale. The continuation of anticoagulation therapy was emphasized as crucial in preventing future embolic events. We discussed the adjustment of atorvastatin dosage to 80 mg for better lipid management and its role in secondary stroke prevention. I explained the importance of follow-up with specialized cardiology care to address the patent foramen ovale, as well as neurology for continued stroke rehabilitation and management. I recommended initiating physical therapy to address his noted ataxia. The patient agreed to the treatment and follow-up plan, including awaiting pending coagulation lab results for further evaluation. Orders: Orders PT Evaluation and Treatment Today I63.9 - Cerebral infarction, unspecified Referrals Cardiology Referral I63.9 - Cerebral infarction, unspecified, Q21.12 - Patent foramen ovale Neurology Referral I63.9 - Cerebral infarction, unspecified Medications: New atorvastatin 80 mg PO BEDTIME 90 days 90 tabs 0RF Discontinued atorvastatin Discontinued Reason: Patient Completed Course 40 mg PO BEDTIME 90 tabs 0RF Patient Instructions: - Continue taking prescribed medications as directed, including the adjusted atorvastatin. - Attend scheduled cardiology and neurology appointments as planned. - Begin physical therapy and perform exercises as recommended. - Monitor for any new or worsening symptoms, and seek immediate medical care if necessary. - Follow up with laboratory tests as ordered, including fasting blood work to r eassess cholesterol and blood glucose levels. - Rest and gradually ease back into daily activities as tolerated, communicating openly with family and coworkers about his current health situation.
[2024-08-11 13:41] VITALS: BP 130/86; BMI 31.5
== END 2024-08-11 14:14 | disposition home or self-care (01) ==
PROVIDERS: PCP Internal Medicine; Visit Provider Internal Medicine
DX: E11.65 Type 2 diabetes mellitus with hyperglycemia (principal); Q21.12 Patent foramen ovale; I10 Essential (primary) hypertension; E78.00 Pure hypercholesterolemia, unspecified; Z86.73 Personal history of transient ischemic attack (TIA), and cerebral infarction without residual deficits

== ENCOUNTER 2024-08-28 09:15 | Day surgery (SDC) | payer BC, SELFPAY ==
--- NOTE | 2024-08-26 09:52 | HO.ANESPROP2 ---
Documented by User: Yumiko Zheng NP 08/26/24 09:56 HPI - Anesthesia Eval Consult details Narrative: 54yo M for Transesophageal Echocardiogram [facility] Admit 07/2024 with CVA, echo showed PFO, eliquis started PMFSH Active Problems Active Problems: All Active Problems PFO (patent foramen ovale) (Acute) Cerebellar stroke, acute (Acute) Left sided sciatica (Acute) Physical exam (Acute) Snoring (Acute) History of non-ST elevation myocardial infarction (NSTEMI) (Acute) Pure hypercholesterolemia (Acute) Obese (Acute) Tubular adenoma of colon (Acute ~2020) Neck pain (Acute) Left hip pain (Acute) Knee osteoarthritis (Acute) Past Medical History Medical History Diabetes mellitus History of non-ST elevation myocardial infarction (NSTEMI) Essential hypertension Pure hypercholesterolemia Nicotine dependence, cigarettes, uncomplicated Tubular adenoma of colon (~2019) Obese Left hip pain Knee osteoarthritis Family History Family History Father Skin cancer Lung cancer Mother Chronic mental illness Lung cancer Brother Cerebral palsy Maternal Aunt Lung cancer Maternal Grandfather Lung cancer Family/Other Chronic mental illness Other Substance use disorder Surgical History Surgical History History of tooth extraction History of colonoscopy History of cardiac catheterization Social History Social History Household Members: Family Housing: House Are you a primary home care provider to a significant other at home: No Do you presently have visiting nurse or other home services: No Alcohol intake: never Patient Tobacco Use Status: Current everyday Tobacco user Tobacco use type: Cigarette Cigarettes Per Day: 10 Years Smoked: (onset 14yo, 1/2-3/4ppd x 40years - 25pyh) Smoked in Last 30 Days: Yes e-Cigarette/Vaping Use: Never Used Patient Interested in Nicotine Replacement: No Second Hand Smoke Exposure: No Use of substances other than those prescribed or required for medical reasons: No Have you been hit, kicked, punched, or otherwise hurt by someone within the past year? If so, by whom?: No Are you DNR?: No Advance Directives: No Advance Directives Information Provided: Yes Recently lost weight without trying: No Nutrition Risks: No Nutritional Risk service: No Current occupational status: employed Current occupational exposures/hazards: No Cognitive needs: No Hearing needs: No Vision needs: No Meds Allergies Allergy/AdvReac Type Severity Reaction Status Date / Time No Known Allergies Allergy Verified 08/28/24 09:39 [No Known Allergies*] Home Medications ?Medication ?Instructions ?Recorded ?Confirmed ?Last Taken ?Type meloxicam 15 mg tablet 15 mg PO DAILY 08/28/24 08/28/24 08/05/24 History Exam Pertinent Lab Results Pertinent Lab Results: Laboratory Tests 08/07/24 08/08/24 04:26 06:47 WBC 9.3 Hgb 14.2 Hct 40.4 L Plt Count 200 Sodium 143 Potassium 3.8 Chloride 113 H Carbon Dioxide 21 L BUN 13 Creatinine 0.70 Narrative Narrative: ECHO 07/2024 Conclusions: - 1. PFO present on saline contrast study at rest 2. Normal LV ejection fraction 55-60% 3. Mild aortic regurgitation 4. Mildly dilated ascending aorta at 4.1 cm 5. Normal RV systolic pressure 6. No gross pericardial effusion EKG 07/2024 Vent. Rate : 066 BPM Atrial Rate : 066 BPM P-R Int : 174 ms QRS Dur : 104 ms QT Int : 410 ms P-R-T Axes : 039 052 027 degrees QTc Int : 429 ms Normal sinus rhythm Normal ECG When compared with ECG of 03-JUL-2023 17:47, No significant change was found Assessment and Plan Assessment Anesthesia Assessment: Chart Reviewed Documented by User: Payton Gallo MD 08/28/24 10:45 PMFSH Past Medical History Medical History Diabetes mellitus History of non-ST elevation myocardial infarction (NSTEMI) Essential hypertension Pure hypercholesterolemia Nicotine dependence, cigarettes, uncomplicated Tubular adenoma of colon (~2019) Obese Left hip pain Knee osteoarthritis Family History Family History Father Skin cancer Lung cancer Mother Chronic mental illness Lung cancer Brother Cerebral palsy Maternal Aunt Lung cancer Maternal Grandfather Lung cancer Family/Other Chronic mental illness Other Substance use disorder Family history of problems with anesthesia: No Surgical History Surgical History History of tooth extraction History of colonoscopy History of cardiac catheterization History of Problems with Anesthesia: No Social History Social History Household Members: Family Housing: House Are you a primary home care provider to a significant other at home: No Do you presently have visiting nurse or other home services: No Alcohol intake: never Patient Tobacco Use Status: Current everyday Tobacco user Tobacco use type: Cigarette Cigarettes Per Day: 10 Years Smoked: (onset 14yo, 1/2-3/4ppd x 40years - 25pyh) Smoked in Last 30 Days: Yes e-Cigarette/Vaping Use: Never Used Patient Interested in Nicotine Replacement: No Second Hand Smoke Exposure: No Use of substances other than those prescribed or required for medical reasons: No Have you been hit, kicked, punched, or otherwise hurt by someone within the past year? If so, by whom?: No Are you DNR?: No Advance Directives: No Advance Directives Information Provided: Yes Recently lost weight without trying: No Nutrition Risks: No Nutritional Risk service: No Current occupational status: employed Current occupational exposures/hazards: No Cognitive needs: No Hearing needs: No Vision needs: No Meds Allergies Allergy/AdvReac Type Severity Reaction Status Date / Time No Known Allergies Allergy Verified 08/28/24 09:39 [No Known Allergies*] Home Medications ?Medication ?Instructions ?Recorded ?Confirmed ?Last Taken ?Type meloxicam 15 mg tablet 15 mg PO DAILY 08/28/24 08/28/24 08/05/24 History Exam Airway Mallampati Class: II TM Dist: >3cm Neck ROM: Limited Denture: Upper Heart: rrr Lungs: cta Assessment and Plan Assessment Anesthesia Assessment: Anesthesia Plan Discussed Final Anesthetic Review Family History of Problems with Anesthesia: No History of Problems with Anesthesia: No NPO: Yes ASA Class: III Final Preanesthetic Review: No Changes in Pt Med Stat, Meds/Allgs Chart Reviewed, Consent Obtained/Reviewed and Anes Risks/Benef Reviewed Patient Risk: Intermediate Procedure Risk: Low Anesthetic Plan Anesthetic Plan: MAC: Disposition: Standard PACU
[2024-08-28] VITALS (7 sets, daily range): BP systolic 81–129; BP diastolic 46–79; PULSE 67–70; RESP 12–18; TEMP 36.1–36.8; O2SAT 90–95; BMI 33.7
--- OUTSIDE RECORDS SUMMARY | 2024-08-28 09:18 | XMS_ITS | Data Portability ---
Author Organization [facility] Address [address] [place] [address] Care Team Providers Care Manager Reimbursement Name Role Phone YVONNE LOUIS Primary Care Provider Assessment No assessment recorded. Plan of Treatment Reminders Order Date Submit Date Provider Last Modified By Organization Details Last Modified Time Details Appointments None recorded. Lab None recorded. Referral None recorded. Procedures None recorded. Surgeries None recorded. Imaging None recorded. Medication Orders cephalexin 500 mg capsule 2022 023 [id number], [address] [place], [place], [phone], 19:51:03 Patient TargetsNo targets recorded. Patient InstructionsNo instructions recorded. Reason for Referral None Reported. Problems Name Problem SNOMED Code Status Onset Date Resolution Date Notes Provider Name and Address Organization Details Recorded Time Hypertensive disorder 77033446 Active [facility] Mejia [facility] 19:34:47 Hypercholestero lemia 54032998 Active [facility] 19:34:56 [...] Last Updated DateTime 175.26 cm 36.9 kg/m2 121583. 09 g 18 /min 96 % 96 [...] Diagnosis/Indication Diagnosis SNOMED-CT Code Diagnosis ICD10 Code [id number] [address] Rasmussen [address] [place] [address] 05/19/2019 19:05:47 05/19/2019 19:39:08 [id number] Linda Garcia NP [address] [address] 04/19/2023 19:18:36 04/19/2023 19:53:02 Cellulitis of right lower limb 5411293156 [id number] L03.115 Health Concerns Section Related Observation LastModified by Organization Detai ls LastModified Time None Recorded Concern Status LastModified by Organization Details LastModified Time None Recorded Advance Directives Directive None Recorded Payers Encounter Date Sequence Insurance Name Policy Number Policy Grimes Covered Member ID Grimes Member ID Guarantor Name 05/19/2019 1 [facility] [id number] Onofre Holbrook [id number] Onofre Holbrook 04/19/[address] [place] [address] [id number] Onofre Holbrook [id number] Onofre Holbrook Notes Date Note Type Note Provider Name and Address Organization Details Recorded Time 3 text/html ToesReported bypatient.source of patient informationInformation obtained from patient Location:right Quality:dull; superficial Severity:moderate Duration:days Timing:acute Context:atraumatic Aggravating Factors:walking Associated Symptoms:no weakness; no numbness; no tingling Linda Garcia NP [address] [place], [address], [place] - [facility] 04/21/2023 17:33:30
[2024-08-28] MEDS: Lactated Ringers 1,000 ML 100 ML IVCONT (09:52)
--- NOTE | 2024-08-28 10:34 | CA_ITS ---
Transesophageal Echocardiogram Amended Patient (Last, First, Middle): Onofre Holbrook K Gender: Male Date of : 1970 Age: 54 Procedure Date: 08/28/2024 Procedure Type: Transesophageal Echocardiogram Location: OP Height: 175.26 cm Weight: 103.42 kg BSA: 2.18 m2 Heart Rate: bpm Aquatics Instructor: TO Referring MD: Enio Blanco MD Symptoms: I63.9 - Cerebral infarction, unspecified Marine Cargo Surveyor: Enio Blanco MD Conclusion: ??? 1. Presence of patent foraminal valve with good size shunt 2. Normal LV ejection fraction of 60-65% 3. Mild aortic and mitral regurgitation 4. No intracardiac thrombi, masses, vegetations 5. Normal pericardium 6. Mild atherosclerotic plaque noted in the descending thoracic aorta Findings Procedure Information Consent was obtained prior to the procedure. Pre ROSAS oral cavity was checked and revealed mild overcrowding. The adult 3D probe was passed with no difficulty. This was a technically good study. Left Ventricle Normal left ventricular size, thickness, and systolic function. The visually estimated ejection fraction is between 60-65%. There is no evidence of regional wall motion abnormalities. Spectral Doppler is indicative of a normal filling pattern. There is no evidence of a mass in the left ventricle. Right Ventricle Normal right ventricular cavity size and systolic function. Atria The left atrium is likely dilated. Contrast study for right to left shunting is mildly positive. Patent foramen ovale detected using by color Doppler and contrast. There is evidence of a patent foramen ovale with bidirectional shunting. There is no evidence of thrombus or mass in the left atrium. Left atrial appendage was free of any thrombus or masses. Left atrial appendage ejection velocity was within normal limits. Left upper, right upper and right lower pulmonary vein draining normally into the left atrium. The right atrium is normal in size. There is no evidence of thrombus or mass in the right atrium. IVC and SVC drain normally into the right atrium. Aortic Valve Normal aortic valve structure and function. There is no aortic valve stenosis. There is mild aortic valve regurgitation. Mitral Valve Normal mitral valve structure and function. There is trace mitral valve regurgitation. There is no mitral valve stenosis. Pulmonic Valve The pulmonic valve is normal. There is trace pulmonic valve regurgitation. Tricuspid Valve Normal tricuspid valve structure. There is trace tricuspid valve regurgitation. The right ventricular systolic pressure is not calculated. Great Vessels All visible segments of the aorta are normal in size. The visualized portions of the pulmonary artery and branches are normal. Mild atherosclerotic changes noted in the descending thoracic aorta. No ulcerated plaque noted Venous The inferior vena cava is normal in size and collapses greater than 50% with inspiration. Pericardium/Pleural There is no evidence of pericardial effusion. Measurements Mitral Valve MV Pk E: 0.69 MV PK A: 0.62 MV Decel Time: 191.00 E/A: 1.10 E'Lateral: 9.47 E'Medial: 7.20 E/E' Med: 9.60 E/E' Lat: 7.30 PHT: 56.00 MVA PHT: 3.93 Decel Greene: 3.62 Diastolic Function MV Pk E: 0.69 MV Pk A: 0.62 E/A: 1.10 E'Medial: 7.20 E/E' Med: 9.60 E' Laterial: 9.47 E/E' Lat: 7.30 Updated by Enio Blanco on 02:54 PM with Status of Final Enio Blanco MD electronically signed on 08/29/2024 2:54:36 PM with status of Final
--- NOTE | 2024-08-28 10:51 | MHC.SHP ---
Pre-Procedural Eval Section A - 24 Hr Update-Section A only Date of Service: 08/28/24 The patient is an INPATIENT: No Changes since office visit: Yes Patient answered all questions; No Cold of Flu in the past 2 weeks, No New Medical Problems and No Changes in Medication The patient has been examined within 24 hours of the surgical procedure. The History & Physical has been completed within 30 days and I have reviewed it.: Yes Section B - Complete if H&P > 30 days Chief Complaint: Cerebral infarction, unspecified Allergies: Allergies Allergy/AdvReac Type Severity Reaction Status Date / Time No Known Allergies Allergy Verified 08/28/24 09:39 [No Known Allergies*] Plan I have reviewed the history and physical and performed a pertinent physical examination on my patient. No changes have occurred unless specified. Time Spent With Patient Time: Total time managing care of this patient today ____ minutes.
--- NOTE | 2024-08-28 12:51 | HO.INF ---
discharge instruction given by Linda Jimenez RN
== END 2024-08-28 12:24 | disposition home or self-care (01) ==
PROVIDERS: PCP Internal Medicine; Visit Provider Internal Medicine Cardiovascular Disease
PROC: (CPT 93312; principal; 2024-08-28 11:00)
DX: I63.9 Cerebral infarction, unspecified (principal); I25.2 Old myocardial infarction; I10 Essential (primary) hypertension; E11.9 Type 2 diabetes mellitus without complications; E78.00 Pure hypercholesterolemia, unspecified; Z79.82 Long term (current) use of aspirin; Z79.899 Other long term (current) drug therapy; F17.210 Nicotine dependence, cigarettes, uncomplicated
CPT/HCPCS: 93312; J2003; J2250; J2704; J3010

== ENCOUNTER → 2024-08-28 10:34 | Outpatient (BNV) | payer BC, SELFPAY | PROVIDERS: PCP Internal Medicine; Visit Provider Internal Medicine Cardiovascular Disease | DX: Q21.12 Patent foramen ovale (principal); I63.9 Cerebral infarction, unspecified | CPT/HCPCS: 93315; 93320; 93325 ==

== ENCOUNTER 2024-09-25 15:31 | Outpatient (AMB) | payer BC, SELFPAY ==
--- NOTE | 2024-09-25 15:37 | A.OFFVIS_ITS ---
Vital Signs 09/25/24 15:38 Height 5 ft 9 in Weight 233 lb 11.04 oz BMI 34.5 BP 120/74 Blood Pressure Location Lt brachial Position Sitting Pulse 74 Intake Visit Reasons: f/u [facility] [place] Intake Note: Follow-up [facility] [place] feeling good Train Dispatcher Required: No Allergies No Known Allergies [No Known Allergies*] Allergy (Verified 08/28/24 09:39) Medication List - Last Reconciled 09/25/24 by Enio Blanco MD apixaban (Eliquis) 5 mg PO BID 90 days atorvastatin 80 mg PO BEDTIME 90 days blood sugar diagnostic (FreeStyle Lite Strips) Use 1 test strip once a day blood-glucose meter (FreeStyle Lite Meter kit) As directed cholecalciferol (vitamin D3) 25 mcg PO DAILY 90 days lancets (FreeStyle Lancets) Use 1 lancet once a day lisinopril 30 mg PO DAILY 90 days metoprolol succinate ER 25 mg PO DAILY 90 days HPI Comments Details: Onofre comes for follow-up after ROSAS. This confirmed the presence of large PFO. Patient was no new symptoms. Currently taking Eliquis. This has led him not taking his meloxicam and has had pain related to the same. Patient has had negative event monitor as well as thrombophilia workup so far. Has had no recurrent events. He is gradually improving with his gait disturbance. [facility] Medical History Diabetes mellitus History of non-ST elevation myocardial infarction (NSTEMI) Essential hypertension Pure hypercholesterolemia Nicotine dependence, cigarettes, uncomplicated Tubular adenoma of colon (~2019) Obese Left hip pain Knee osteoarthritis Surgical History History of tooth extraction History of colonoscopy History of cardiac catheterization Family History Father Skin cancer Lung cancer Mother Chronic mental illness Lung cancer Brother Cerebral palsy Maternal Aunt Lung cancer Maternal Grandfather Lung cancer Family/Other Chronic mental illness Other Substance use disorder Social History Household Members: Family Housing: House Are you a primary animal care attendant to a significant other at home: No Do you presently have visiting nurse or other home services: No Alcohol intake: never Patient Tobacco Use Status: Current everyday Tobacco user Tobacco use type: Cigarette Cigarettes Per Day: 10 Years Smoked: (onset 14yo, 1/2-3/4ppd x 40years - 25pyh) e-Cigarette/Vaping Use: Never Used Second Hand Smoke Exposure: No service: No Current occupational status: employed Current occupational exposures/hazards: No Cognitive needs: No Hearing needs: No Vision needs: No Review of Systems Const Denies chills, Denies fatigue, Denies fever(s), Denies frequent falls, Denies weakness, Denies weight gain and Denies weight loss ENT Denies dizziness Card Denies chest pain, Denies leg edema, Denies lightheadedness, Denies palpitations, Denies dyspnea, Denies dyspnea on exertion, Denies orthopnea and Denies other (loss of consciousness) Resp Denies cough, Denies dyspnea and Denies dyspnea on exertion GI Denies hematochezia and Denies change in stool character Musc Denies abnormal gait, Denies muscle weakness, Denies numbness, Denies radiating pain into limb and Denies tingling Neuro Denies abnormal gait, Denies dizziness, Denies frequent falls, Denies numbness, Denies tingling and Denies weakness Endo Denies fatigue and Denies palpitations Physical Exam Vital Signs: Last Vital Signs Pulse 74 09/25/24 15:38 BP 120/74 09/25/24 15:38 BMI result Body Mass Index 34.5 Last Vital Signs Temp 96.9 F 08/08/24 11:12 Pulse 61 08/08/24 11:12 Resp 17 08/08/24 11:12 BP 146/86 H 08/08/24 11:12 Pulse Ox 96 08/08/24 11:12 O2 Del Method Room Air 08/08/24 11:12 BMI result Body Mass Index 32.2 Const General: cooperative, comfortable, no acute distress, alert and awake Nutritional Appearance: overweight Orientation/consciousness: patient oriented x3 Limitations: no limitations HEENT Head: Yes normocephalic and Yes atraumatic Neck Neck: Yes trachea midline, Yes supple and Yes no JVD Resp Effort & Inspection: normal respiratory effort Auscultation: clear to auscultation bilaterally Cardio Jugular venous distension: no JVD Palpation: normal PMI Rate: regular rate Rhythm: regular rhythm Heart sounds: S1 normal heart sound present, S2 normal heart sound present, no click, no gallops, no murmurs and no rubs GI Auscultation: normal bowel sounds Skin General skin exam: no rashes or lesions noted Neuro General: patient oriented x3, no focal motor deficits and other (Noticed mild dysarthria) Assessment & Plan Assessment & Plan (1) Cerebellar stroke, acute: Code(s): I63.9 - Cerebral infarction, unspecified Category: Medical Plan: Acute cerebellar stroke which appears to be embolic most likely related to PFO with no other obvious risk factors. He is having difficulty with oral anticoagulation therapy due to inability take other medications. I think he will benefit from PFO closure. I have taken the liberty to refer him to Dr. Mata at [facility] to consider the same. Images will be uploaded to [facility] system. He does have other risk factors for stroke although he was no evidence of extracranial intracranial atherosclerosis or significant atherosclerosis on the ROSAS that would explain his stroke. Process of PFO closure was discussed with him. Will follow up with him in 9 months time. Coding Level of Care Code Est Pt Level 4 (48966) Complex EM visit Add On G2211 Diagnoses Cerebellar stroke, acute I63.9
[2024-09-25 15:38] VITALS: BP 120/74; PULSE 74; BMI 34.5
--- OUTSIDE RECORDS SUMMARY | 2024-09-25 19:16 | XMS_ITS | Data Portability ---
Author Organization [facility] Address [address] [place] [address] Care Team Providers Care Ceo Name Role Phone YVONNE LOUIS Primary Care Provider Assessment No assessment recorded. Plan of Treatment Reminders Order Date Submit Date Provider Last Modified By Organization Details Last Modified Time Details Appointments None recorded. Lab None recorded. Referral None recorded. Procedures None recorded. Surgeries None recorded. Imaging None recorded. Medication Orders cephalexin 500 mg capsule 2022 023 [id number], [address] [place], [place], [phone], 19:51:03 Patient TargetsNo targets recorded. Patient InstructionsNo instructions recorded. Reason for Referral None Reported. Problems Name Problem SNOMED Code Status Onset Date Resolution Date Notes Provider Name and Address Organization Details Recorded Time Hypertensive disorder 06149033 Active [facility] Mejia [facility] 3 19:34:47 Hypercholestero lemia 83414316 Active [facility] Me[facility]ia [facility] 3 19:34:56 [...] Not Available Vitals Date Recorded Body height Provider Name an d Address Organization Details Last Updated DateTime 04/19/2023 175.26 cm MIMI WINSTON [place] - [facility] 04/19/2023 19:33:49 Date Recorded Body mass index (BMI) Body weight Provider Name and Address Organization Details Last Updated DateTime 04/19/2023 36.9 kg/m2 395824.09 g MIMI SMITHA PA - [facility] 04/19/2023 19:33:54 Date Recorded Pain severity - 0-10 verbal numeric rating [Score] - Reported Provider Name and Address Organization Details Last Updated DateTime 04/19/2023 2 MIMI SMITHA PA - [facility] 04/19/2023 19:34:02 Date Recorded Respiratory rate Provider Name a nd Address Organization Details Last Updated DateTime 04/19/2023 18 /min MIMI SMITHA PA - [facility] 04/19/2023 19:34:04 Date Recorded Oxygen saturation Oxygen saturation in Arterial blood by Pulse oximetry Provider Name and Address Organization Details Last Updated DateTime 04/19/2023 96 % 96 % MIMI WINSTON PA - [facility] 04/19/2023 19:37:02 Date Recorded Heart rate Provider Name an d Address Organization Details Last Updated DateTime 04/19/2023 90 /min MIMI WINSTON PA - [facility] 04/19/2023 19:37:05 Date Recorded Body temperature Provider Name a nd Address Organization Details Last Updated DateTime 04/19/2023 98.2 [degF] MIMI WINSTON PA - [facility] 04/19/2023 19:37:12 Date Recorded Systolic blood pressure Diastolic blood pressure Provider Name and Address Organization Details Last Updated DateTime 04/19/2023 146 mm[Hg] 91 mm[Hg] MIMI WINSTON PA - [facility] 04/19/2023 19:36:56 Social History Question Answer Notes LastModified by Organizat ion Details LastModified Time Tobacco Smoking Status Current Every Day Smoker MIMI ROSALESYakelinROBERTS null, PA - [facility] 04/19/2023 19:35:20 What [...] split virus, quadrivalent, preservative 8 completed MIMI MUELLERROBERTS null, PA - [facility] 04/19/2023 19:33:43 Influenza, split virus, quadrivalent, preservative 4 completed MIMI WINSTON null, PA - [facility] 04/19/2023 19:33:43 Influenza, split virus, quadrivalent, preservative 7 completed MIMI WINSTON null, PA - [facility] 04/19/2023 19:33:43 [...] Diagnosis/Indication Diagnosis SNOMED-CT Code Diagnosis ICD10 Code Diagnosis Note [id number] [address] [address] 05/19/2019 19:05:47 05/19/2019 19:39:08 [id number] Linda Garcia NP [address] [address] 04/19/2023 19:18:36 04/19/2023 19:53:02 Cellulitis of right lower limb [id number] L03.115 Based on your presentati on and exam today, I am diagnosing you with cellulitis . Avoid wearing work boots for the next week ,Leave area open to air as much as possible I am going to prescribe you and antibiotic to cover this infection. Please be sure to complete the full course of this antibiotic to prevent antibiotic resistance . I suggest with any antibiotic that you take Florastor or another probiotic. This help re-coloniz e you body with the good bacteria. It might take 3-4 days for the antibiotic to start working - so don't panic if your infection gradually worsens over the next 48 hours before it gets better. The following are my recommenda tions to help you feel better and aid in resolving this infection: 1. No creams or lotions on the affected area - so no Antibiotic ointment.2 . Warm Epsen Salt Soaks - 2 or 3 x daily. This will help move the infection to the surface of the skin.3. Take Ibuprofen or Tylenol if you do not have any allergies to these medication s. If you take a blood thinner you should not take NSAIDS like Ibuprofen. These medication will help with the inflammati on in your respirator y tract which should help the cough.4. Do no squeeze or pick at the area. This can worsen the infection. The following are warning signs to look out for that would suggest the infection is worsening. This would mean you should be seen again:1. Fever > 100.52. Redness is spreading to double the size in 24 hours3. Increased swelling and pain.4. Inability to move a joint5. Swollen lymph nodes that are tender Thank you for using [facility] today, please don't hesitate to call or reach out to us if you have any questions or concerns. Health Concerns Section Related Observation LastModified by Organization Detai ls LastModified Time None Recorded Concern Status LastModified by Organization Details LastModified Time None Recorded Advance Directives Directive None Recorded Payers Encounter Date Sequence Insurance Name Policy Number Policy Grimes Covered Member ID Grimes Member ID Guarantor Name 05/19/2019 1 [facility] [id number] Onofre Holbrook [id number] Onofre Holbrook 04/19/2023 1 [facility] [id number] Onofre Holbrook [id number] Onofre Holbrook Notes Date Note Type Note Provider Name and Address Organization Details Recorded Time 3 text/html ToesReported bypatient.source of patient informationInformation obtained from patient Location:right Quality:dull; superficial Severity:moderate Duration:days Timing:acute Context:atraumatic Aggravating Factors:walking Associated Symptoms:no weakness; no numbness; no tingling Linda Garcia NP [address] [place], [address], [place] - [facility] 04/21/2023 17:33:30
== END 2024-09-25 16:03 | disposition home or self-care (01) ==
PROVIDERS: PCP Internal Medicine; Visit Provider Internal Medicine Cardiovascular Disease
DX: I63.9 Cerebral infarction, unspecified (principal)
CPT/HCPCS: 99214

== ENCOUNTER 2024-11-20 06:05 | Outpatient (REF) | payer BC, SELFPAY ==
[2024-11-20 07:40] LABS: Creatinine Urine 85.03 mg/dL; Microalbum/Creatinine Ratio Ur 8.2 ug/mg cr (<30)
[2024-11-20 07:47] LABS: Alanine Aminotransferase 27 U/L (0-40); Albumin Level 4.2 g/dL (3.5-5.0); Alkaline Phosphatase 64 U/L (39-117); Anion Gap 12 (12-20); Aspartate Amino Transferase 18 U/L (5-37); Bilirubin Total 0.8 mg/dL (0.0-1.0); Blood Urea Nitrogen 14 mg/dL (9-16); Calcium 9.1 mg/dL (8.4-10.2); Carbon Dioxide 21 mmol/L (22-29); Chloride 108 mmol/L (96-108); Cholesterol 130 mg/dL (<200); Estimated Glomerular Filt Rate > 60; Glucose Fasting 105 mg/dL (60-99); HDL Cholesterol 41 mg/dL (>40); LDL Cholesterol Calculated 73 mg/dL (<100); Potassium 3.9 mmol/L (3.3-5.1); Sodium 137 mmol/L (135-145); Total Protein 6.7 g/dL (6.5-8.0); Triglycerides 83 mg/dL (<150)
[2024-11-20 08:01] LABS: Vitamin D 25-OH Total 20.4 ng/mL (>30)
== END 2024-11-20 06:06 | disposition home or self-care (01) ==
LOC: HO.LAB 06:05
PROVIDERS: PCP Internal Medicine; Visit Provider Internal Medicine
DX: E78.5 Hyperlipidemia, unspecified (principal); R80.9 Proteinuria, unspecified; E55.9 Vitamin D deficiency, unspecified; E11.65 Type 2 diabetes mellitus with hyperglycemia; I63.9 Cerebral infarction, unspecified; N52.9 Male erectile dysfunction, unspecified; E78.00 Pure hypercholesterolemia, unspecified; I10 Essential (primary) hypertension; Q21.12 Patent foramen ovale
CPT/HCPCS: 36415; 80053; 80061; 82043; 82306; 82570; 96127

== ENCOUNTER 2024-11-20 16:17 | Outpatient (AMB) | payer BC, SELFPAY ==
[2024-11-20 16:25] VITALS: BP 124/72; PULSE 63; O2SAT 98; BMI 33.0
--- NOTE | 2024-11-20 16:25 | A.OFFPC_ITS ---
Vital Signs 11/20/24 16:25 Height 5 ft 9 in Weight 223 lb 8 oz BMI 33.0 BP 124/72 Blood Pressure Location Lt brachial Position Sitting Pulse 63 Pulse Source Pulse Oximeter Pulse Oximetry (%) 98 Oxygen Delivery Method Room Air Intake Visit Reasons: Bp, dm Supervisor Modern Languages Required: No Accompanied by: Self / Same As Patient Allergies No Known Allergies [No Known Allergies*] Allergy (Verified 11/20/24 16:38) Medication List - Last Reconciled 11/20/24 by Erika Wren MD apixaban (Eliquis) 5 mg PO BID 90 days atorvastatin 80 mg PO BEDTIME 90 days blood sugar diagnostic (FreeStyle Lite Strips) Use 1 test strip once a day blood-glucose meter (FreeStyle Lite Meter kit) As directed cholecalciferol (vitamin D3) 25 mcg PO DAILY 90 days lancets (FreeStyle Lancets) Use 1 lancet once a day lisinopril 30 mg PO DAILY 90 days metoprolol succinate ER 25 mg PO DAILY 90 days Tobacco use date assessed: 11/20/24 Dental Screening Dental Screen Date: 11/20/24 HPI HPI Comments History of Present Illness Details The patient is a 54-year-old male presenting for follow-up of hypertension, impaired glucose tolerance, cerebellar stroke most likely secondary to patent foramen ovale which will be repair next month and hyperlipidemia management, along with discussions on smoking cessation. He narinder ntains antihypertensives, including lisinopril and metoprolol, and atorvastatin to manage his hyperlipidemia, with satisfactory control of his cholesterol levels noted in recent labs. A past cerebrovascular accident has led to subsequent evaluation and the diagnosis of a patent foramen ovale, with plans for surgical intervention. The patient, a current smoker with reduced use, expresses interest in cessation. He highlights a significant weight reduction over recent months and reports urinary frequency and possible erectile dysfunction issues. Abstinent from alcohol for nearly three decades, the patient's focus remains on managing his chronic conditions while working towards lifestyle adjustments conducive to improved health outcomes. He does complains of erectile dysfunction that started after he started medications. I will test him for testosterone deficiency. [facility] Medical History (Updated 11/21/24 @ 08:27 by Erika Wren MD) Essential hypertension History of non-ST elevation myocardial infarction (NSTEMI) Pure hypercholesterolemia Nicotine dependence, cigarettes, uncomplicated Tubular adenoma of colon (~2019) Obese Left hip pain Knee osteoarthritis Surgical History History of tooth extraction History of colonoscopy History of cardiac catheterization Family History Father Skin cancer Lung cancer Mother Chronic mental illness Lung cancer Brother Cerebral palsy Maternal Aunt Lung cancer Maternal Grandfather Lung cancer Family/Other Chronic mental illness Other Substance use disorder Social History Household Members: Family Housing: House Are you a primary care transport nurse to a significant other at home: No Do you presently have visiting nurse or other home services: No Alcohol intake: never Patient Tobacco Use Status: Current everyday Tobacco user Tobacco use type: Cigarette Cigarettes Per Day: 10 Years Smoked: (onset 14yo, 1/2-3/4ppd x 40years - 25pyh) e-Cigarette/Vaping Use: Never Used Second Hand Smoke Exposure: No service: No Current occupational status: employed Current occupational exposures/hazards: No Cognitive needs: No Hearing needs: No Vision needs: No Questionnaire PHQ-9 Over the last 2 weeks, how often have you been bothered by any of the following problems? 1. Little interest or pleasure in doing things: not at all 2. Feeling down, depressed, or hopeless: not at all 3. Trouble falling or staying asleep, or sleeping too much: not at all 4. Feeling tired or having little energy: not at all 5. Poor appetite or overeating: not at all 6. Feeling bad about yourself - or that you are a failure or have let yourself or your family down: not at all 7. Trouble concentrating on things, such as reading the newspaper or watching television: not at all 8. Moving or speaking so slowly that other people could have noticed. Or the opposite - being so fidgety or restless that you have been moving around a lot more than usual: not at all 9. Thoughts that you would be better off or of hurting yourself in some way: not at all Total score: 0 Depression Screening Interpretation: Negative Depression Screening Done: Yes 91218 - PHQ-9 Billing: Yes Source: Developed by Drs. Tae Clark, Hayley Joe, Emerson Robledo and colleagues, with an educational bruce from [employer]. Thrive Questionnaire Date Thrive assessed: 11/20/24 I am a: Patient What is your living situation today?: I have a steady place to live Within the past 12 months, did the food you bought not last and you didn't have the money to get more?: Never true Within the past 12 months, did you worry whether your food would run out before you got money to buy more?: Never true Do you have trouble paying for medicines?: No Do you have trouble getting transportation to medical appointments?: No Do you have trouble paying your heating and electricity bill?: No Do you have trouble taking care of your child, family member or friend?: No Do you have trouble with day-to-day activities such as bathing, preparing meals, shopping, managing finances, etc.?: No Are you currently unemployed and looking for a job?: No Are you interested in more education?: No Please select the resources that you would like help with: None Currently or been in a relationship where the following occur: No concerns reported THRIVE Score: 0 AUDIT C Alcohol Use Questionnaire (AUDIT-C) 1. How often do you have a drink containing alcohol?: Never 3. How often do you have six or more drinks on one occasion?: Never Total Score: 0 Score Reviewed/Action Taken: No JAYDEN-7 AMB Questionnaire JAYDEN-7 Date JAYDEN - 7 assessed: 11/20/24 Feeling nervous, anxious, or on edge: 0 = Not at all Not being able to stop or control worryin = Not at all Worrying too much about different things: 0 = Not at all Trouble relaxin = Not at all Being so restless that it is hard to sit still: 0 = Not at all Becoming easily annoyed or irritable: 0 = Not at all Feeling afraid as if something awful might happen: 0 = Not at all Total JAYDEN-7 score (0-4 normal; 5-9 mild; 10-14 moderate; 15-21 severe): 0 Source: Developed by Hayley Sanabria, Emerson Robledo and colleagues, with an educational bruce from [employer]. JAYDEN-7 Assessment Billing JAYDEN-7 Assessment Tool: JAYDEN-7 Assessment 58960 Review of Systems Const All systems reviewed & are unremarkable except as noted in HPI and below Card Denies chest pain at rest, Denies chest pain with activity, Denies edema, Denies irregular heart rhythm, Denies claudication, Denies dyspnea, Denies dyspnea on exertion, Denies orthopnea, Denies paroxysmal nocturnal dyspnea and Denies slow heart rate Resp Denies cough, Denies dyspnea and Denies dyspnea on exertion GI Denies abdominal pain, Denies change in bowel habits, Denies excessive flatus, Denies nausea and Denies vomiting Denies urinary hesitancy, Denies urinary incontinence and Denies urinary urgency Musc Denies atrophy, Denies deformity and Denies limited range of motion Skin/Breast Denies bleeding lesions, Denies changing lesions and Denies rash Physical exam (Primary Care) Vital Signs: Last Vital Signs Pulse 63 11/20/24 16:25 BP 124/72 11/20/24 16:25 Pulse Ox 98 11/20/24 16:25 Oxygen Delivery Method Room Air 11/20/24 16:25 BMI result Body Mass Index 33.0 BMI Assessment/Plan discussion: High BMI High, discussed plan: lifestyle, weight reduction, dietary and physical activity Tobacco/Smoking Status: Tobacco use Status Tobacco use date assessed 11/20/24 11/20/24 16:30 Patient Tobacco Use Status Current everyday Tobacco 11/20/24 16:30 Tobacco use type Cigarette 11/20/24 16:30 e-Cigarette/Vaping Use Never Used 11/20/24 16:30 PHQ-9: PHQ-9 Score PHQ-9: Total score 0 11/20/24 16:39 Depression Screening Interpretation: Negative Thrive Assessment: Date of Thrive Assessment Date Thrive assessed 11/20/24 11/20/24 16:30 Currently or been in a relationship where the following occur: No concerns reported Resp Effort & Inspection: normal respiratory effort Auscultation: clear to auscultation bilaterally Cardio Jugular venous distension: no JVD Rate: regular rate Rhythm: regular rhythm Heart sounds: S1 normal heart sound present and S2 normal heart sound present Extrem General: Yes full ROM Coding Level of Care Code Est Pt Level 4 (95436) Complex EM visit Add On G2211 Diagnoses Cerebellar stroke, acute I63.9 Erectile dysfunction N52.9 Pure hypercholesterolemia E78.00 Essential hypertension I10 Impaired glucose tolerance R73.02 PFO (patent foramen ovale) Q21.12 Additional Codes JAYDEN-7 Assessment Billing - JAYDEN-7 Assessment Tool: JAYDEN-7 Assessment 56064 ([id number]) PHQ-9 - 12846 - PHQ-9 Billing: Yes ([id number]) Time Spent (min) 24 Assessment & Plan Assessment & Plan (1) Cerebellar stroke, acute: Code(s): I63.9 - Cerebral infarction, unspecified Category: Medical (2) Erectile dysfunction: Code(s): N52.9 - Male erectile dysfunction, unspecified Category: Medical (3) Pure hypercholesterolemia: Code(s): E78.00 - Pure hypercholesterolemia, unspecified Category: Medical (4) Essential hypertension: Code(s): I10 - Essential (primary) hypertension Category: Medical (5) Impaired glucose tolerance: Code(s): R73.02 - Impaired glucose tolerance (oral) Category: Medical (6) PFO (patent foramen ovale): Code(s): Q21.12 - Patent foramen ovale Category: Medical Plan The treatment plan prioritizes closing the patent foramen ovale to address cerebrovascular risks and possibly discontinue Eliquis. Current antihypertensive and hyperlipidemia management should be continued while encouraging complete smoking cessation, leveraging therapeutic aids and resources available. Future assessment of testosterone levels will be planned in alignment with recovery from cardiac procedures. Emphasis remains on maintaining current weight gains and lifestyle adaptations. Vitamin D supplementation is advised to address identified deficiencies. Patient was informed and verbally consented to the use of an ambient scribe for clinic note documentation during this visit. I thoroughly reviewed with the patient the necessity of addressing his patent foramen ovale via upcoming surgical intervention, explaining the benefits of reduced stroke risk and potential discontinuation of anticoagulation therapy. Risks and logistics of the procedure were discussed alongside expectations and recovery timelines. Emphasis was placed on smoking cessation due to its sig nificant impact on cerebrovascular health, and we explored various cessation aids and resources. I apprised him of anticipated weight changes with cessation and encouraged continued management of hypertension and hyperlipidemia through existing medication regimens. A tentative plan for testosterone evaluation was agreed upon post-surgical recovery, assuring a structured follow-up to assess health progress. Orders: Orders Testosterone, Free/Total 4 Months N52.9 - Male erectile dysfunction, unspecified Lipid Panel 4 Months E78.5 - Hyperlipidemia, unspecified Comprehensive [place]. Panel Fast 4 Months I63.9 - Cerebral infarction, unsp ecified Patient Instructions: - Continue taking prescribed medications for blood pressure and cholesterol. - Prepare for cardiac surgery on December 05; adhere to pre-surgery instructions. - Work towards complete smoking cessation; consider utilizing [employer] resources. - Maintain current lifestyle and dietary adjustments to avoid weight gain. - Consider vitamin D supplementation as advised. - Be alert to any changes in urinary habits or erectile function and report them. - Follow-up appointments as scheduled and further checks as required post- procedure.
== END 2024-11-20 16:58 | disposition home or self-care (01) ==
LOC: HO.HMCH 16:18
PROVIDERS: PCP Internal Medicine; Visit Provider Internal Medicine
DX: I63.9 Cerebral infarction, unspecified (principal); N52.9 Male erectile dysfunction, unspecified; E78.00 Pure hypercholesterolemia, unspecified; I10 Essential (primary) hypertension; R73.02 Impaired glucose tolerance (oral); Q21.12 Patent foramen ovale

== ENCOUNTER 2025-04-06 16:23 | Outpatient (REF) | payer BC, SELFPAY ==
--- OUTSIDE RECORDS SUMMARY | 2025-04-06 16:25 | XMS_ITS | Clinical Summary ---
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 Active atorvastatin (LIPITOR) 80 MG tablet Take by mouth daily. 05/23/2020 Active lisinopril (PRINIVIL,ZESTRI L) 20 MG tablet Take by mouth daily. 04/19/2020 Active meloxicam (MOBIC) 15 MG tablet Take 15 mg by mouth daily. 06/01/2020 Active Active Problems No known active problems Resolved Problems Problem Noted Date Diagnosed Date Resolved Date Tinea pedis of both feet 04/15/202002/2023 Immunizations Immunization Administration Dates Next Due Influenza Recombinant Quadrivalent Preservative Free IM 05/28/2020 Social History Tobacco Use Types Packs/Day Years Used Date Smoking Tobacco: Every Day Cigarettes Smokeless Tobacco: Never Tobacco Cessation:Ready to Q uit: Not Asked; Counseling Given: Not Answered Alcohol Use Standard Drinks/Week Comments Not Currently 0 (1 standard drink = 0.6 oz pur e alcohol) Education Answer Date Recorded Are you interested in more education? Not on brandi e 12/22/2022 Are you concerned about learning? Not on file 12/22/2022 No 12/22/2022 No 12/22/2022 Digital Access Answer Date Recorded No 01/20/2023 No 01/20/2023 Reliable internet access at home? Not on file 01/20/2023 Device with a working camera? Not on file Sex and Gender Information Value Date Recorded Sex Assigned at Not on file Legal Sex Male 12:38 PM EDT Gender Identity Not on file Sexual Orientation Not on file Last Filed Vital Signs Vital Sign Reading Time Taken Comments Blood Pressure 158/92 05/03/2023 3:22 PM EDT Pulse 79 05/03/2023 3:22 PM EDT Temperature 37 C (98.6 F) 05/03/2023 3:22 PM EDT Respiratory Rate 16 05/03/2023 3:22 PM EDT Oxygen Saturation 98% 05/03/2023 3:2 2 PM EDT Inhaled Oxygen Concentration - - Weight 113.4 kg (250 lb) 05/03/2023 3:2 2 PM EDT per pt Height 175.3 cm (5' 9 ) 07/24/2022 2:38 PM EST patient reported Body Mass Index 36.92 07/24/2022 2:38 PM EST Plan of Treatment Health Maintenance Due Date Last Done Comments Adult Td,Tdap Booster 1969 CREATININE LEVEL 1969 LIPID PANEL 1969 POTASSIUM LEVEL 1969 DEPRESSION SCREENING 1981 SMOKING Hx and SMOKELESS TOB ACCO SCREENING 1982 HEPATITIS C SCREENING 1987 HIV ONE-TIME SCREENING (18-6 5 YEARS) 1987 SCREENING FOR DIABETES 02/19/2004 COLOGUARD 2014 COLONOSCOPY 2014 COLORECTAL CANCER SCREENING 2014 FIT TEST 2014 FOBT 2014 SIGMOIDOSCOPY 2014 VIRTUAL COLONOSCOPY 2014 PNEUMOCOCCAL VACCINES (50+ y ears) (2 of 2 - PCV) 05/19/2017 05/19/2016 ZOSTER VACCINES (1 of 2) 2019 COVID-19 VACCINE (2 - 2023-2 5 season) 2024 12/01/2020 HEPATITIS A VACCINES Aged Out No long er eligible based on patient's age to complete this topic HIB VACCINES Aged Out No longer eligi ble based on patient's age to complete this topic MENINGOCOCCAL VACCINES (ACWY) Aged Out No longer eligible based on patient's age to complete this topic MENINGOCOCCAL VACCINES (B) Aged Out N o longer eligible based on patient's age to complete this topic Medical Devices Not on file Insurance [facility] Care Teams Maintenance Trainer Relationship Specialty Start Date End Date Erika Barrett MD [address] [place] [address] PCP - General Internal Medicine 04/03/20 Additional Source Comments The information contained in this document represents components of the legal health record. It is not the complete legal health record.[facility]
== END 2025-04-06 16:24 | disposition home or self-care (01) ==
LOC: HO.CT 16:23
PROVIDERS: PCP Internal Medicine; Visit Provider Physician Assistant Medical
DX: Z12.2 Encounter for screening for malignant neoplasm of respiratory organs (principal); F17.210 Nicotine dependence, cigarettes, uncomplicated
CPT/HCPCS: 71271

== ENCOUNTER → 2025-04-06 16:25 | Outpatient (BNV) | payer BC, SELFPAY | PROVIDERS: PCP Internal Medicine; Visit Provider Radiology Diagnostic Radiology | DX: F17.210 Nicotine dependence, cigarettes, uncomplicated (principal) | CPT/HCPCS: 71271 ==

== ENCOUNTER 2025-06-23 15:18 | Outpatient (AMB) | payer BC, SELFPAY ==
[2025-06-23 15:21] VITALS: BP 120/72; PULSE 75; BMI 35.2
--- NOTE | 2025-06-23 15:21 | A.OFFVIS_ITS ---
Vital Signs 06/23/25 15:21 Height 5 ft 9 in Weight 238 lb 1.588 oz BMI 35.2 BP 120/72 Blood Pressure Location Lt brachial Position Sitting Pulse 75 Intake Visit Reasons: 9m follow up Intake Note: 9 month follow-up with ekg feeling good [employer] Supervisor Required: No Allergies No Known Allergies (No Known Allergies*) Allergy (Verified 11/20/24 16:38) Medication List - Last Reconciled 06/23/25 by Enio Blanco MD aspirin (Adult Aspirin Regimen) 81 mg PO DAILY atorvastatin 80 mg PO BEDTIME 90 days blood sugar diagnostic (FreeStyle Lite Strips) Use 1 test strip once a day blood-glucose meter (FreeStyle Lite Meter kit) As directed lancets (FreeStyle Lancets) Use 1 lancet once a day lisinopril 30 mg PO DAILY 90 days metoprolol succinate ER 25 mg PO DAILY 90 days HPI Comments Details: Onofre comes for follow-up. He is status post PFO closure with Campbell 30 mm device. Has not had a follow-up transthoracic echocardiogram with bubble contrast as yet. He has had no new neurologic symptoms. Taking in his blood pressure medication as well as cholesterol medications. He is also taking low- dose aspirin therapy. [facility] Medical History History of CVA (cerebrovascular accident) (~07/2024) PFO (patent foramen ovale) Nicotine dependence, cigarettes, uncomplicated Essential hypertension History of non-ST elevation myocardial infarction (NSTEMI) Pure hypercholesterolemia Tubular adenoma of colon (~2019) Obese Left hip pain Knee osteoarthritis Surgical History S/P patent foramen ovale closure History of tooth extraction History of colonoscopy History of cardiac catheterization Family History Father Skin cancer Lung cancer Mother Chronic mental illness Lung cancer Brother Cerebral palsy Maternal Aunt Lung cancer Maternal Grandfather Lung cancer Family/Other Chronic mental illness Other Substance use disorder Social History Household Members: Family Housing: House Are you a primary medicare sales representative to a significant other at home: No Do you presently have visiting nurse or other home services: No Alcohol intake: never Patient Tobacco Use Status: Current everyday Tobacco user Tobacco use type: Cigarette Cigarettes Per Day: 10 Years Smoked: (onset 14yo, 1/2-3/4ppd x 40years - 25pyh) e-Cigarette/Vaping Use: Never Used Second Hand Smoke Exposure: No service: No Current occupational status: employed Current occupational exposures/hazards: No Cognitive needs: No Hearing needs: No Vision needs: No Review of Systems Const Denies chills, Denies fatigue, Denies fever(s), Denies frequent falls, Denies weakness, Denies weight gain and Denies weight loss ENT Denies dizziness Card Denies chest pain, Denies leg edema, Denies lightheadedness, Denies palpitations, Denies dyspnea, Denies dyspnea on exertion, Denies orthopnea and Denies other (loss of consciousness) Resp Denies cough, Denies dyspnea and Denies dyspnea on exertion GI Denies hematochezia and Denies change in stool character Musc Denies abnormal gait, Denies muscle weakness, Denies numbness, Denies radiating pain into limb and Denies tingling Neuro Denies abnormal gait, Denies dizziness, Denies frequent falls, Denies numbness, Denies tingling and Denies weakness Endo Denies fatigue and Denies palpitations Physical Exam Vital Signs: Last Vital Signs Pulse 75 06/23/25 15:21 BP 120/72 06/23/25 15:21 BMI result Body Mass Index 35.2 Last Vital Signs Temp 96.9 F 08/08/24 11:12 Pulse 61 08/08/24 11:12 Resp 17 08/08/24 11:12 BP 146/86 H 08/08/24 11:12 Pulse Ox 96 08/08/24 11:12 O2 Del Method Room Air 08/08/24 11:12 BMI result Body Mass Index 32.2 Const General: cooperative, comfortable, no acute distress, alert and awake Nutritional Appearance: overweight Orientation/consciousness: patient oriented x3 Limitations: no limitations HEENT Head: Yes normocephalic and Yes atraumatic Neck Neck: Yes trachea midline, Yes supple and Yes no JVD Resp Effort & Inspection: normal respiratory effort Auscultation: clear to auscultation bilaterally Cardio Jugular venous distension: no JVD Palpation: normal PMI Rate: regular rate Rhythm: regular rhythm Heart sounds: S1 normal heart sound present, S2 normal heart sound present, no click, no gallops, no murmurs and no rubs GI Auscultation: normal bowel sounds Skin General skin exam: no rashes or lesions noted Neuro General: patient oriented x3, no focal motor deficits and other (Noticed mild dysarthria) Office Procedures EKG Details: EKG shows normal sinus rhythm with normal EKGs [id number], Complete Assessment & Plan Assessment & Plan (1) S/P patent foramen ovale closure: Comment: 12/19 Code(s): Z87.74 - Personal history of (corrected) congenital malformations of heart and circulatory system Category: Medical Plan: He is status post PFO closure for cerebellar CVA and doing well. He has multiple risk factors for vascular disease including hypertension and hyperlipidemia. Continue the same. Strongly advised to stop smoking. Advised to follow-up transthoracic echo with saline contrast to assess for adequate closure. He will pursue that. Continue low-dose aspirin therapy for life. SBE prophylaxis till November of 2025. Will follow up in the clinic in 1 year's time, sooner PRN. Thank you for allowing me to partake in his care Coding Level of Care Code Est Pt Level 4 (21301) Complex EM visit Add On G2211 Diagnoses S/P patent foramen ovale closure Z87.74 CPT Codes EKG - CPT: 66553-[id number], Complete ([id number])
--- OUTSIDE RECORDS SUMMARY | 2025-06-23 19:44 | XMS_ITS | Clinical Summary ---
Author Organization [facility] Address [address] [place] [id number] Phone Care Team Providers Care Engagement Director Name Role Phone Erika Barrett MD Primary [...] DEPRESSION SCREENING 1981 SMOKING Hx and SMOKELESS TOBACCO SCREENING 1982 HEPATITIS C SCREENING 1987 HIV ONE-TIME SCREENING (18-65 YEARS) 1987 SCREENING FOR DIABETES 02/19/2004 COLOGUARD 2014 COLONOSCOPY 2014 COLORECTAL CANCER SCREENING 2014 FIT TEST 2014 FOBT 2014 SIGMOIDOSCOPY 2014 VIRTUAL COLONOSCOPY 2014 PNEUMOCOCCAL VACCINES (50+ years) (2 of 2 - PCV) 05/19/2017 05/19/2016 ZOSTER VACCINES (1 of 2) 2019 INFLUENZA VACCINE (#1) 2025 2, 05/28/2020, 07/10/2019, Additional history exists COVID-19 VACCINE (2 - 2024- season) 2025 12/01/2020 RSV VACCINE (1 - 1-dose 75+ series) 02/19/2044 HEPATITIS A VACCINES Aged Out No long [...] topic Medical Devices Not on file Insurance [facility] Care Teams Engagement Director Relationship Specialty Start Date End Date Erika Barrett MD [address] [place] [id number] PCP - General Internal Medicine 04/03/20 Additional Source Comments The information contained in this document represents components of the legal health record. It is not the complete legal health record.[facility]
--- OUTSIDE RECORDS SUMMARY | 2025-06-23 19:44 | XMS_ITS | Data Portability ---
Author Organization [facility] , [address] Address [address] [place] [address] Care Team Providers Care Hassock Maker Name Role Phone YVONNE LOUIS Primary Care Provider Assessment No assessment recorded. Plan of Treatment Reminders Order Date Submit Date Provider Last Modified By Organization Details Last Modified Time Details Appointments None recorded. Lab None recorded. Referral None recorded. Procedures None recorded. Surgeries None recorded. Imaging None recorded. Medication Orders cephalexin 500 mg capsule 2022 023 [id number], [address], [place], [id number], 19:51:03 Patient TargetsNo targets recorded. Patient InstructionsNo instructions recorded. Reason for Referral None Reported. Problems Name Problem SNOMED Code Status Onset Date Resolution Date Notes Provider Name and Address Organization Details Recorded Time Hypertensive disorder 73786652 Active [facility] Mejia [facility] 19:34:47 Hypercholestero lemia 69866123 Active [facility] Me[facility] 3 19:34:56 [...] height Body mass index (BMI) Body weight Pain severity - 0-10 verbal numeric rating [Score] - Reported Respiratory rate Oxygen saturation Oxygen saturation in Arterial blood by Pulse oximetry Heart rate Body temperature Systolic And Diastolic Provider Name and Address Organization Details Last Updated DateTime 3 175.26 cm 36.9 kg/m2 727329. 09 g 2 18 /min 96 % 96 % 90 /min 98.2 [degF] 146/91 mm[Hg] MIMI HIGGINS RA PA - [facility] 19:36:56 Social History Question Answer Notes LastModified by KS12 Details LastModified Time Tobacco Smoking Status Current Every Day Smoker MIMI galicia PA - [facility] 04/19/2023 19:35:20 How Much Tobacco Do You Smoke? 0.5 PPD Information not available 04/19/2023 Have You Recently Traveled Abroad? No Information not available 04/19/2023 Sex: Unknown Functional Status Question Answer Note LastModified by KS12 Details LastModified Time Do you use any illicit or recreational drugs? No Information not available 04/19/2023 What is your level of alcohol consumption? None Information not available 04/19/2023 Mental Status None recorded. Family History Relationship [...] 04/19/2023 19:33:43 Influenza, split virus, quadrivalent, PF 11/14/201 9 completed MIMI ROSALES-ROBERTS null, PA - [facility] 04/19/2023 19:33:43 Past Encounters Encounter ID Performer Location Encounter Start Date Encounter Closed Date Diagnosis/Indication Diagnosis SNOMED-CT Code Diagnosis ICD10 Code Diagnosis IMO Codes Diagnosis Note [id number] [facility] [address] [place] [address] 05/19/2019 19:05:47 05/19/2019 19:39:08 [id number] Linda Garcia NP [address] [address] 04/19/2023 19:18:36 04/19/2023 19:53:02 Cellulitis of right lower limb [id number] L03.115 Based on your presentati on and [...] that are tender Thank you for using [facility] today, please don't hesitate to call or reach out to us if you have any questions or concerns. Health Concerns Section Related Observation LastModified by Organization Detai ls LastModified Time None Recorded Concern Status LastModified by Organization Details LastModified Time None Recorded Advance Directives Directive None Recorded Payers Insurance Date Sequence Insurance Name Policy Number Policy Grimes Covered Member ID Grimes Member ID Guarantor Name 04/19/2023 1 [facility] [id number] Onofre Arya Holbrook [id number] Onofre Holbrook Notes Date Note Type Note Provider Name and Address Organization Details Recorded Time 04/19/2023 text/html ToesReported by PatientHPIFor source of patient information, patient reportsinformation obtained from patient. For location, patient reportsright. For quality, patient reportsdullandsuperfici al. For severity, patient reportsmoderate. For duration, patient reports___ days. For timing, patient reportsacute. For context, patient reportsatraumatic. For aggravating factors, patient reportswalking. For associated symptoms, patient reportsno weakness,no numbness, andno tingling. Linda Garcia NP [address] [place], [address], PA - [facility] 04/21/2023 17:33:30
== END 2025-06-23 15:42 | disposition home or self-care (01) ==
LOC: HO.HCS 15:18
PROVIDERS: PCP Internal Medicine; Visit Provider Internal Medicine Cardiovascular Disease
DX: Z87.74 Personal history of (corrected) congenital malformations of heart and circulatory system (principal)
CPT/HCPCS: 93010; 99214

== ENCOUNTER → 2025-06-23 15:18 | Outpatient (BNVA) | payer BC, SELFPAY | PROVIDERS: PCP Internal Medicine; Visit Provider Internal Medicine Cardiovascular Disease | DX: Z87.74 Personal history of (corrected) congenital malformations of heart and circulatory system (principal) | CPT/HCPCS: 93005 ==

== ENCOUNTER → 2025-08-26 10:01 | Outpatient (REF) | payer BC, SELFPAY ==
--- NOTE | 2025-08-26 10:03 | CA_ITS ---
Transthoracic Echocardiogram Patient (Last, First, Middle): Onofre Holbrook K Gender: M Date of : 1970 Age: 55 Procedure Date: 08/26/2025 Procedure Type: Transthoracic Echocardiogram Location: OP Height: 175.26 cm Weight: 107.96 kg BSA: 2.22 m2 Heart Rate: bpm BP: 120 / 72 mmHg Business Mail Entry Clerk: ANNE Referring MD: Enio Blanco MD Symptoms: Q21.12 - Patent foramen ovale Study Quality: Adequate with contrast ECG Rhythm: Sinus Conclusions: - The left ventricular systolic function is normal. The calculated ejection fraction is 63% by biplane method. - No obvious valvular pathology seen on this study. - There is no evidence of a patent foramen ovale. Findings Procedure Information Contrast agent, definity, is being given per protocol without apparent complications. Left Ventricle Normal left ventricular cavity size. There is mildly increased left ventricular wall thickness. The left ventricular systolic function is normal. The calculated ejection fraction is 63% by biplane method. There is no evidence of regional wall motion abnormalities. Diastolic function is normal for age. Right Ventricle Mildly increased right ventricular cavity size. There is normal right ventricular systolic function. Atria Both atria are normal in size. There is no evidence of a patent foramen ovale. Bubble study negative with rest and valsalva. Aortic Valve There is a normal trileaflet aortic valve. There is mild calcification of the aortic valve. There is no aortic valve stenosis. There is trace (trivial) aortic valve regurgitation. Mitral Valve The mitral valve appears normal. There is no mitral valve regurgitation. There is no mitral valve stenosis. Pulmonic Valve The pulmonic valve is likely normal. Tricuspid Valve There is trace tricuspid valve regurgitation. There is no evidence of pulmonary hypertension. Great Vessels The asc aorta is normal in size. Venous The inferior vena cava is dilated and collapses greater than 50% with inspiration. Pericardium/Pleural There is no evidence of pericardial effusion. Prior Study Comparison Changes noted compared to prior study dated: 08/28/2024. s/p PFO closure. Recommendations, Care & Conclusions No obvious valvular pathology seen on this study. Measurements 2D Linear Measurements IVSd: 1.11 0.6-0.9/0.6-1.0 cm LVIDd: 4.66 3.9-5.3/4.2-5.9 cm LVIDd Index: 2.10 2.4-3.2/2.2-3.1 cm/m2 LVIDs: 3.48 2.0-3.6 cm LVPWd: 1.03 0.7-1.1 cm LA Diam: 3.60 2.7-3.8/3.0-4.0 cm LAIDs Index: 1.62 1.5-2.3 cm/m2 LV Mass: 221.77 67-162/88-224 g LV Mass Index: 99.89 43-95/49-115 g/m2 LVOT Diam: 2.40 3.0+(-)1.3 cm 2D Systolic Function EF 4C: 58.30 >55% EF 2C: 67.20 >55% EF BiP: 62.80 >55% Mitral Valve MV Pk E: 0.84 MV PK A: 1.02 MV Decel Time: 270.00 E/A: 0.80 E'Lateral: 9.79 E'Medial: 7.83 E/E' Med: 10.70 E/E' Lat: 8.60 PHT: 79.00 MVA PHT: 2.78 Decel Collin: 3.11 Aortic Valve AoV Pk Ed: 1.72 AoV Mn Ed: 1.20 AoV VTI: 0.38 AoV Pk Grad: 12.00 Aov Mn Grad: 7.00 SAILAJA Cont.VTI: 2.99 LVOT LVOT Pk Ed: 1.04 LVOT Mn Ed: 0.69 LVOT VTI: 0.25 LVOT Pk Grad: 4.00 LVOT Mn Grad: 2.00 LVOT Diam: 2.40 LVOT Area: 4.52 Diastolic Function MV Pk E: 0.84 MV Pk A: 1.02 E/A: 0.80 E'Medial: 7.83 E/E' Med: 10.70 E' Laterial: 9.79 E/E' Lat: 8.60 Right Ventricle TAPSE (mm): 25.40 TVS' Ed: 11.40 Tricuspid Valve TR Pk Ed: 1.64 TR Pk Grad: 11.00 RA Press: 8.00 RVSP: 19.00 Great Vessels Aorta Sinus of Valsalva: 3.85 2.0-3.[address] Ridge: 3.29 1.7-3.4 cm Ao Asc: 3.80 2.1-3.4 cm Updated in Other Vendor System with Status of Final Cameron Chavis MD electronically signed on 08/28/2025 11:53:33 AM with status of Final
--- OUTSIDE RECORDS SUMMARY | 2025-08-26 10:59 | XMS_ITS | Clinical Summary ---
Author Organization [facility] Address [address] [place] [phone] Phone Care Team Providers Care Research Methods Instructor Name Role Phone Erika Barrett MD Primary [...] topic Medical Devices Not on file Insurance [facility] Care Teams Research Methods Instructor Relationship Specialty Start Date End Date Erika Barrett MD [address] [place] [id number] PCP - General Internal Medicine 04/03/20 Additional Source Comments The information contained in this document represents components of the legal health record. It is not the complete legal health record.[facility]
== END ==
LOC: HO.CARD 10:01
PROVIDERS: PCP Internal Medicine; Visit Provider Internal Medicine Cardiovascular Disease
DX: Q21.12 Patent foramen ovale (principal)
CPT/HCPCS: 93306; Q9957

== ENCOUNTER → 2025-08-26 10:03 | Outpatient (BNV) | payer BC, SELFPAY | PROVIDERS: PCP Internal Medicine; Visit Provider Internal Medicine | DX: Q21.12 Patent foramen ovale (principal) | CPT/HCPCS: 93306 ==